=== PATIENT | male | born 1960 | race American Indian/Alaskan Native ===

== ENCOUNTER 2017-05-10 15:35 | Inpatient (IN) | payer MEDICARE ==
--- NOTE | 2017-05-10 17:21 | Emergency Department Report ---
ED General Adult HPI - General Chief complaint: Altered Mental Status Stated complaint: ALTERED MENTAL STATUS Time Seen by Provider: 05/10/17 17:17 Source: patient, family, EMS (ems notes not available at time of chart dictation), RN notes reviewed, old records reviewed Mode of arrival: Stretcher Limitations: Altered Mental Status, Physical Limitation - History of Present Illness Initial comments: This is a 57-year-old male who was previously unknown to this provider. History limited as the patient is currently nonverbal, will follow some commands , but not all commands, and cannot therefore describe exacerbating or relieving factors or qualitative nature of symptoms. Patient is brought to the hospital by EMS for altered mental status. 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 Patient is nonverbal, and will follow commands, but does not respond to yes no questions, and cannot answer open-ended questions. History is otherwise limited. -: unknown Consistency: constant Improves with: none Worsens with: none Associated Symptoms: confusion - Related Data Home Medications Medication Instructions Recorded Confirmed Last Taken oxyCODONE /ACETAMINOPHEN [Percocet 1 tab PO PRN PRN 10/20/13 09/24/14 09/23/14 5/325 mg] Acyclovir 1 tab PO BID 10/23/13 09/24/14 09/23/14 Emtricitabine [Emtriva] 1 cap PO 2XW 10/23/13 09/19/14 10/22/13 21:00 Gabapentin 1 tab PO DAILY 10/23/13 09/24/14 09/23/14 09:00 Ondansetron HCl [Zofran] 1 tab PO Q8HR PRN 10/23/13 09/19/14 10/17/13 09:00 Raltegravir Potassium [Isentress] 1 tab PO BID 10/23/13 09/24/14 10/22/13 21:00 Sennosides [Senna Lax] 2 tab PO BID PRN 10/23/13 09/19/14 10/19/13 21:00 Sertraline [Zoloft] 1 tab PO BID 10/23/13 09/19/14 10/22/13 21:00 Tenofovir [Viread] 1 tab PO DAILY 10/23/13 09/19/14 10/22/13 09:00 Previous Rx's Medication Instructions Recorded Last Taken Type Docusate Sodium [Colace CAP] 100 mg PO BID PRN #30 capsule 09/24/14 Unknown Rx oxyCODONE /ACETAMINOPHEN [Percocet 1 tab PO Q4HR PRN #30 tab 09/24/14 Unknown Rx 5/325 mg] Dextran 70/Hypromellose [Tears 15 ml OP QID #1 bottle 10/30/14 Unknown Rx Pure Drops] predniSONE [Deltasone] 20 mg PO QDAY #5 tab 10/30/14 Unknown Rx Allergies Allergy/AdvReac Type Severity Reaction Status Date / Time sulfamethoxazole Allergy Rash Verified 09/28/14 09:02 [From Bactrim] trimethoprim [From Bactrim] Allergy Rash Verified 09/28/14 09:02 ED Review of Systems ROS: Stated complaint: ALTERED MENTAL STATUS Other details as noted in HPI Comment: Unobtainable due to pts medical conditions ED Past Medical Hx - Past Medical History Hx Diabetes: Yes (FOR 2 YEARS ) Hx Deep Vein Thrombosis: Yes (BLOOD CLOT IN PORT IN 2013) Hx GERD: Yes Hx Renal Disease: Yes (dialysis , , wed) Hx HIV: Yes (2 YEARS, DR [employer] [employer]) - Surgical History Additional Surgical History: port in chest. SHUNT LEFT ARM - Social History Smoking Status: Never Smoker Substance Use Type: None - Medications Home Medications: Home Medications Medication Instructions Recorded Confirmed Last Taken Type oxyCODONE /ACETAMINOPHEN [Percocet 1 tab PO PRN PRN 10/20/13 09/24/14 09/23/14 History 5/325 mg] Acyclovir 1 tab PO BID 10/23/13 09/24/14 09/23/14 History Emtricitabine [Emtriva] 1 cap PO 2XW 10/23/13 09/19/14 10/22/13 21:00 History Gabapentin 1 tab PO DAILY 10/23/13 09/24/14 09/23/14 09:00 History Ondansetron HCl [Zofran] 1 tab PO Q8HR PRN 10/23/13 09/19/14 10/17/13 09:00 History Raltegravir Potassium [Isentress] 1 tab PO BID 10/23/13 09/24/14 10/22/13 21:00 History Sennosides [Senna Lax] 2 tab PO BID PRN 10/23/13 09/19/14 10/19/13 21:00 History Sertraline [Zoloft] 1 tab PO BID 10/23/13 09/19/14 10/22/13 21:00 History Tenofovir [Viread] 1 tab PO DAILY 10/23/13 09/19/14 10/22/13 09:00 History Docusate Sodium [Colace CAP] 100 mg PO BID PRN #30 capsule 09/24/14 Unknown Rx oxyCODONE /ACETAMINOPHEN [Percocet 1 tab PO Q4HR PRN #30 tab 09/24/14 Unknown Rx 5/325 mg] Dextran 70/Hypromellose [Tears 15 ml OP QID #1 bottle 10/30/14 Unknown Rx Pure Drops] predniSONE [Deltasone] 20 mg PO QDAY #5 tab 10/30/14 Unknown Rx ED Physical Exam - General Limitations: Altered Mental Status General appearance: in no apparent distress - Head Head exam: Present: atraumatic, normocephalic - Eye Eye exam: Present: normal appearance, EOMI. Absent: nystagmus - ENT ENT exam: Present: normal exam, normal orophraynx, mucous membranes moist, normal external ear exam - Neck Neck exam: Present: normal inspection, full ROM. Absent: tenderness, meningismus - Respiratory Respiratory exam: Present: normal lung sounds bilaterally. Absent: respiratory distress - Cardiovascular Cardiovascular Exam: Present: regular rate, normal rhythm, normal heart sounds. Absent: bradycardia, tachycardia, irregular rhythm, systolic murmur, diastolic murmur, rubs, gallop - GI/Abdominal GI/Abdominal exam: Present: soft, normal bowel sounds. Absent: distended, tenderness, guarding, rebound, rigid, pulsatile mass - Rectal Rectal exam: Present: other (excoriation is noted around the rectum, tender lesions noted around the rectum, there is no fluctuance or crepitus. The compartments are soft.) - Extremities Exam Extremities exam: Present: normal inspection, full ROM, normal capillary refill , other (there is a left upper extremity AV fistula with no redness, pus or streaking. There is a right upper extremity PICC line, with no redness, pus, streaking.). Absent: pedal edema, joint swelling, calf tenderness - Back Exam Back exam: Present: normal inspection, full ROM. Absent: paraspinal tenderness , vertebral tenderness - Neurological Exam Neurological exam: Present: alert, other (there is no facial droop. The extraocular movements are intact. 5 out of 5 strength in 4 extremities. Unable to assess sensation, or mentation as the patient is nonverbal.) - Psychiatric Psychiatric exam: Present: anxious - Skin Skin exam: Present: warm, dry, intact, normal color. Absent: rash ED Course Vital Signs 05/10/17 05/10/17 05/10/17 15:40 15:45 15:48 Temperature 98.0 F Pulse Rate 90 101 H Respiratory 9 L 13 Rate Blood Pressure 132/69 135/66 O2 Sat by Pulse 75 L 96 100 Oximetry 05/10/17 05/10/17 05/10/17 16:00 16:15 16:30 Temperature Pulse Rate 93 H 89 85 Respiratory 9 L 9 L 14 Rate Blood Pressure 135/66 136/74 140/74 O2 Sat by Pulse 100 100 100 Oximetry 05/10/17 05/10/17 05/10/17 16:45 17:00 17:28 Temperature 98.0 F Pulse Rate 84 90 Respiratory 15 22 Rate Blood Pressure 140/71 144/76 O2 Sat by Pulse 100 100 99 Oximetry 05/10/17 05/10/17 05/10/17 17:45 18:39 18:55 Temperature Pulse Rate Respiratory 18 9 L Rate Blood Pressure 140/71 140/71 140/71 O2 Sat by Pulse 100 Oximetry 05/10/17 05/10/17 05/10/17 19:01 19:15 19:31 Temperature Pulse Rate 95 H 95 H Respiratory 14 12 15 Rate Blood Pressure 140/71 140/71 144/76 O2 Sat by Pulse 95 96 Oximetry 05/10/17 05/10/17 05/10/17 19:45 20:01 20:15 Temperature 98.7 F Pulse Rate 95 H 95 H 102 H Respiratory 20 20 18 Rate Blood Pressure 144/76 144/76 144/76 O2 Sat by Pulse 94 92 97 Oximetry 05/10/17 05/10/17 05/10/17 20:31 20:43 20:44 Temperature 97 F L Pulse Rate 92 H Respiratory 18 20 Rate Blood Pressure 144/76 O2 Sat by Pulse 96 Oximetry - Reevaluation(s) Reevaluation #1: 05/10/17 19:31 PICC line noted in the right upper extremity, no redness, pus or streaking Reevaluation #2: 05/10/17 19:38 The Hospital physician, Dr. Richmond, accepted the patient to the medical service Reevaluation #3: 05/10/17 22:11 CT scan of the brain and cervical spine negative for acute disease. Doxycycline ordered empirically. ED Medical Decision Making - Lab Data Result diagrams: 05/10/17 18:01 05/10/17 18:01 Vital Signs 05/10/17 05/10/17 05/10/17 15:40 15:45 15:48 Temperature 98.0 F Pulse Rate 90 101 H Respiratory 9 L 13 Rate Blood Pressure 132/69 135/66 O2 Sat by Pulse 75 L 96 100 Oximetry 05/10/17 05/10/17 05/10/17 16:00 16:15 16:30 Temperature Pulse Rate 93 H 89 85 Respiratory 9 L 9 L 14 Rate Blood Pressure 135/66 136/74 140/74 O2 Sat by Pulse 100 100 100 Oximetry 05/10/17 05/10/17 05/10/17 16:45 17:00 17:28 Temperature 98.0 F Pulse Rate 84 90 Respiratory 15 22 Rate Blood Pressure 140/71 144/76 O2 Sat by Pulse 100 100 99 Oximetry Lab Results 05/10/17 05/10/17 05/10/17 Range/Units 17:06 17:06 18:01 WBC (4.5-11.0) K/mm3 RBC (3.65-5.03) M/mm3 Hgb (11.8-15.2) gm/dl Hct (35.5-45.6) % MCV (84-94) fl MCH (28-32) pg MCHC (32-34) % RDW (13.2-15.2) % Plt Count (140-440) K/mm3 Sodium 140 (137-145) mmol/L Potassium 5.1 H (3.6-5.0) mmol/L Chloride 95.2 L (98-107) mmol/L Carbon Dioxide 24 (22-30) mmol/L Anion Gap 26 mmol/L BUN 49 H (9-20) mg/dL Creatinine 12.7 H (0.8-1.5) mg/dL Estimated GFR 5 ml/min BUN/Creatinine Ratio 4 % Glucose 109 H (75-100) mg/dL Lactic Acid (0.7-2.0) mmol/L Calcium 7.6 L (8.4-10.2) mg/dL Total Bilirubin 1.80 H (0.1-1.2) mg/dL AST 14 (5-40) units/L ALT 10 (7-56) units/L Alkaline Phosphatase 105 (35-129) units/L Ammonia (25-60) umol/L Total Creatine Kinase (55-170) units/L Total Protein 6.7 (6.3-8.2) g/dL Albumin 3.8 L (3.9-5) g/dL Albumin/Globulin Ratio 1.3 % Urine Color Yellow (Yellow) Urine Turbidity Clear (Clear) Urine pH 8.0 H (5.0-7.0) Ur Specific [facility] 1.009 (1.003-1.030) Urine Protein 30 mg/dl (Negative) mg/dL Urine Glucose (UA) 150 (Negative) mg/dL Urine Ketones Neg (Negative) mg/dL Urine Blood Sm (Negative) Urine Nitrite Neg (Negative) Urine Bilirubin Neg (Negative) Urine Urobilinogen < 2.0 (<2.0) mg/dL Ur Leukocyte Esterase Neg (Negative) Urine WBC (Auto) < 1.0 (0.0-6.0) /HPF Urine RBC (Auto) 6.0 (0.0-6.0) /HPF U Epithel Cells (Auto) < 1.0 (0-13.0) /HPF Urine Mucus Few /HPF Salicylates (2.8-20.0) mg/dL Urine Opiates Screen TNR Urine Methadone Screen TNR Acetaminophen (10.0-30.0) ug/mL Ur Barbiturates Screen TNR Ur Phencyclidine Scrn TNR Ur Amphetamines Screen TNR U Benzodiazepines Scrn TNR Urine Cocaine Screen TNR U Marijuana (THC) Screen TNR Drugs of Abuse Note TNR 05/10/17 05/10/17 05/10/17 Range/Units 18:01 18:01 18:01 WBC 2.0 L (4.5-11.0) K/mm3 RBC 3.21 L (3.65-5.03) M/mm3 Hgb 10.2 L (11.8-15.2) gm/dl Hct 31.1 L (35.5-45.6) % MCV 97 H (84-94) fl MCH 32 (28-32) pg MCHC 33 (32-34) % RDW 14.3 (13.2-15.2) % Plt Count 104 L (140-440) K/mm3 Sodium (137-145) mmol/L Potassium (3.6-5.0) mmol/L Chloride (98-107) mmol/L Carbon Dioxide (22-30) mmol/L Anion Gap mmol/L BUN (9-20) mg/dL Creatinine (0.8-1.5) mg/dL Estimated GFR ml/min BUN/Creatinine Ratio % Glucose (75-100) mg/dL Lactic Acid (0.7-2.0) mmol/L Calcium (8.4-10.2) mg/dL Total Bilirubin (0.1-1.2) mg/dL AST (5-40) units/L ALT (7-56) units/L Alkaline Phosphatase (35-129) units/L Ammonia 40.0 (25-60) umol/L Total Creatine Kinase (55-170) units/L Total Protein (6.3-8.2) g/dL Albumin (3.9-5) g/dL Albumin/Globulin Ratio % Urine Color (Yellow) Urine Turbidity (Clear) Urine pH (5.0-7.0) Ur Specific [facility] (1.003-1.030) Urine Protein (Negative) mg/dL Urine Glucose (UA) (Negative) mg/dL Urine Ketones (Negative) mg/dL Urine Blood (Negative) Urine Nitrite (Negative) Urine Bilirubin (Negative) Urine Urobilinogen (<2.0) mg/dL Ur Leukocyte Esterase (Negative) Urine WBC (Auto) (0.0-6.0) /HPF Urine RBC (Auto) (0.0-6.0) /HPF U Epithel Cells (Auto) (0-13.0) /HPF Urine Mucus /HPF Salicylates < 0.3 L (2.8-20.0) mg/dL Urine Opiates Screen Urine Methadone Screen Acetaminophen (10.0-30.0) ug/mL Ur Barbiturates Screen Ur Phencyclidine Scrn Ur Amphetamines Screen U Benzodiazepines Scrn Urine Cocaine Screen U Marijuana (THC) Screen Drugs of Abuse Note 05/10/17 05/10/17 05/10/17 Range/Units 18:01 18:01 18:01 WBC (4.5-11.0) K/mm3 RBC (3.65-5.03) M/mm3 Hgb (11.8-15.2) gm/dl Hct (35.5-45.6) % MCV (84-94) fl MCH (28-32) pg MCHC (32-34) % RDW (13.2-15.2) % Plt Count (140-440) K/mm3 Sodium (137-145) mmol/L Potassium (3.6-5.0) mmol/L Chloride (98-107) mmol/L Carbon Dioxide (22-30) mmol/L Anion Gap mmol/L BUN (9-20) mg/dL Creatinine (0.8-1.5) mg/dL Estimated GFR ml/min BUN/Creatinine Ratio % Glucose (75-100) mg/dL Lactic Acid 1.40 (0.7-2.0) mmol/L Calcium (8.4-10.2) mg/dL Total Bilirubin (0.1-1.2) mg/dL AST (5-40) units/L ALT (7-56) units/L Alkaline Phosphatase (35-129) units/L Ammonia (25-60) umol/L Total Creatine Kinase 373 H (55-170) units/L Total Protein (6.3-8.2) g/dL Albumin (3.9-5) g/dL Albumin/Globulin Ratio % Urine Color (Yellow) Urine Turbidity (Clear) Urine pH (5.0-7.0) Ur Specific [facility] (1.003-1.030) Urine Protein (Negative) mg/dL Urine Glucose (UA) (Negative) mg/dL Urine Ketones (Negative) mg/dL Urine Blood (Negative) Urine Nitrite (Negative) Urine Bilirubin (Negative) Urine Urobilinogen (<2.0) mg/dL Ur Leukocyte Esterase (Negative) Urine WBC (Auto) (0.0-6.0) /HPF Urine RBC (Auto) (0.0-6.0) /HPF U Epithel Cells (Auto) (0-13.0) /HPF Urine Mucus /HPF Salicylates (2.8-20.0) mg/dL Urine Opiates Screen Urine Methadone Screen Acetaminophen 15.0 (10.0-30.0) ug/mL Ur Barbiturates Screen Ur Phencyclidine Scrn Ur Amphetamines Screen U Benzodiazepines Scrn Urine Cocaine Screen U Marijuana (THC) Screen Drugs of Abuse Note - EKG Data -: EKG Interpreted by Me EKG shows normal: sinus rhythm - EKG Data 05/10/17 19:26 Normal sinus, 84 bpm, borderline left axis, poor R-wave progression, biphasic T waves in the lateral leads, abnormal EKG, not morphologically consistent with a elevation myocardial infarction - Radiology Data Radiology results: image reviewed interpreted by me: X-ray of the chest demonstrates cardiomegaly, pulmonary vascular congestion, left lower lobe atelectasis versus infiltrate, awaiting formal interpretation - Medical Decision Making Differential diagnosis, including but not limited to: Intracranial injury, cervical spine injury, stroke, transient ischemic attack, pneumonia, conversion disorder, azotemia Assessment and plan: 57-year-old male with altered mental status, uncertain duration of time, therefore not a TPA candidate, also not an endovascular candidate. Patient's mental status is improving in the ER, he is now speaking and following some commands, although cannot answer open-ended or close and a questions. contacted nephrology on-call, Dr. Candy Blackmon, she indicates that that is their private patient, he was last dialyzed on Wednesday. Nephrology will follow in consultation. X-ray of the chest appears unremarkable , laboratory studies were reviewed and demonstrate renal insufficiency which is known, noncontrast CT scan of the brain and cervical spine are pending. We have requested old medical records from [facility], at the time of presentation oh family or friends were available for consent, therefore in the interest of expediting safe patient care, and for continuity of care, this provider has administratively consented the patient for release of medical information. Critical care attestation.: If time is entered above; I have spent that time in minutes in the direct care of this critically ill patient, excluding procedure time. ED Disposition Clinical Impression: ESRD (end stage renal disease), Altered mental status Disposition: 09 OP ADMIT IP TO THIS HOSP Is pt being admited?: Yes Condition: Fair
[2017-05-10 17:42] LABS: Amphetamine Screen,Urine TNR; Benzodiazepines Screen,Urine TNR; Cannabinoid Screen,Urine TNR; Cocaine Screen,Urine TNR; Methadone Screen,Urine TNR; Opiate Screen,Urine TNR
[2017-05-10 17:45] LABS: Bilirubin,Urine NEG (Negative); Blood,Urine SM (Negative); Color,Urine Yellow (Yellow); Mucus,Urine FEW /HPF; Urobilinogen,Urine < 2.0 mg/dL (<2.0); WBC,Urine < 1.0 /HPF (0.0-6.0)
[2017-05-10 18:20] LABS: Hematocrit 31.1 % (35.5-45.6); Hemoglobin 10.2 gm/dl (11.8-15.2); Mean Corpuscular HGB Conc 33 % (32-34); Mean Corpuscular Hemoglobin 32 pg (28-32); Mean Corpuscular Volume 97 fl (84-94); Platelet Count 104 K/mm3 (140-440); Red Blood Count 3.21 M/mm3 (3.65-5.03); Red Cell Distribution Width 14.3 % (13.2-15.2)
[2017-05-10] MEDS ORDERED: ATIVAN ONE (18:34)
[2017-05-10 18:52] LABS: Albumin 3.8 g/dL (3.9-5)
[2017-05-10 19:04] LABS: Calcium 7.6 mg/dL (8.4-10.2)
[2017-05-10] MEDS ORDERED: ATIVAN IV ONE (19:33)
[2017-05-10 19:54] LABS: Anisocytosis 1+; Eosinophils % (Manual) 0 % (0.0-4.3); Hypochromasia 1+; Total Cells Counted 100
[2017-05-10 19:55] LABS: Ovalocytes Few; Platelet Estimate Consistent w Auto
--- NOTE | 2017-05-10 20:09 | XRay Report ---
FINAL REPORT PROCEDURE: XR CHEST 1V AP TECHNIQUE: Chest radiograph anteroposterior view. CPT 55530 HISTORY: ams COMPARISON: None FINDINGS: Right PICC line has its tip in the SVC. The trachea is midline. The heart is top-normal in size. There is mild central vascular congestion. Left basilar airspace disease is present with or without small pleural effusion. No acute osseous abnormality is seen. IMPRESSION: Right PICC line in place, tip in the SVC. Mild central vascular congestion. Small left basilar airspace disease subsegmental atelectasis and or infiltrate. Small left pleural fluid not excluded.
--- NOTE | 2017-05-10 20:16 | History and Physical Report ---
History of Present Illness Chief complaint: He is confused. History of present illness: 57 YO Male with HIV, ESED on HD(T,R,Sa), CaP, Pelvic Cancer currently undergoing radiation therapy, DM,DVT, GERD, HIV Disease presents to ED for evaluation. Pt is confused and lethargic and unable to provide detailed history. Pt history taken from medical record, and ED staff, as well as family members who are at bedside during exam and interview. As per family the patient has experienced increasing confusion over the past week. Pt is currently unable to conduct activities of daily living. No reports of fever, chills, CP, Palpitations, NVD, trauma, falls, or recent ill contacts. EMS notified, and upon arrival the patient was found to be encephalopathic. Pt transported to [facility] for evaluation. Pt seen and evaluated in ED and found to have Encephalopathy, complicated by ESRD needing dialysis. Pt admitted to medical floor. Nephrology consulted in ED. Past History Past Medical History: diabetes, DVT, ESRD, GERD, HIV/AIDS Past Surgical History: Other (AVF, Chest Port) Social history: single. denies: smoking, alcohol abuse, prescription drug abuse Family history: hypertension Medications and Allergies Allergies Allergy/AdvReac Type Severity Reaction Status Date / Time sulfamethoxazole Allergy Rash Verified 09/28/14 09:02 [From Bactrim] trimethoprim [From Bactrim] Allergy Rash Verified 09/28/14 09:02 Home Medications Medication Instructions Recorded Confirmed Last Taken Type oxyCODONE /ACETAMINOPHEN [Percocet 1 tab PO PRN PRN 10/20/13 09/24/14 09/23/14 History 5/325 mg] Acyclovir 1 tab PO BID 10/23/13 09/24/14 09/23/14 History Emtricitabine [Emtriva] 1 cap PO 2XW 10/23/13 09/19/14 10/22/13 21:00 History Gabapentin 1 tab PO DAILY 10/23/13 09/24/14 09/23/14 09:00 History Ondansetron HCl [Zofran] 1 tab PO Q8HR PRN 10/23/13 09/19/14 10/17/13 09:00 History Raltegravir Potassium [Isentress] 1 tab PO BID 10/23/13 09/24/14 10/22/13 21:00 History Sennosides [Senna Lax] 2 tab PO BID PRN 10/23/13 09/19/14 10/19/13 21:00 History Sertraline [Zoloft] 1 tab PO BID 10/23/13 09/19/14 10/22/13 21:00 History Tenofovir [Viread] 1 tab PO DAILY 10/23/13 09/19/14 10/22/13 09:00 History Docusate Sodium [Colace CAP] 100 mg PO BID PRN #30 capsule 09/24/14 Unknown Rx oxyCODONE /ACETAMINOPHEN [Percocet 1 tab PO Q4HR PRN #30 tab 09/24/14 Unknown Rx 5/325 mg] Dextran 70/Hypromellose [Tears 15 ml OP QID #1 bottle 10/30/14 Unknown Rx Pure Drops] predniSONE [Deltasone] 20 mg PO QDAY #5 tab 10/30/14 Unknown Rx Review of Systems ROS unobtainable: due to mental status Exam - Constitutional Vitals: Temp Pulse Resp BP Pulse Ox 98.7 F 95 H 15 144/76 96 05/10/17 19:45 05/10/17 19:31 05/10/17 19:31 05/10/17 19:31 05/10/17 19:31 General appearance: Present: mild distress, obese - EENT Eyes: Present: PERRL ENT: hearing intact, clear oral mucosa - Neck Neck: Present: supple, normal ROM - Respiratory Respiratory: bilateral: diminished, rhonchi - Cardiovascular Heart Sounds: Present: S1 & S2. Absent: rub, click - Extremities Extremities: pulses symmetrical, No edema Peripheral Pulses: within normal limits - Abdominal General gastrointestinal: Present: soft, non-tender, non-distended, normal bowel sounds Male genitourinary: Present: normal - Integumentary Integumentary: Present: clear, warm, dry - Musculoskeletal Musculoskeletal: generalized weakness - Psychiatric Psychiatric: no intact judgment & insight, no memory intact - Neurologic Neurologic: moves all extremities, no gait normal Results - Labs CBC & Chem 7: 05/10/17 18:01 05/10/17 18:01 Labs: Abnormal lab results 05/10/17 05/10/17 05/10/17 Range/Units 17:06 18:01 18:01 WBC (4.5-11.0) K/mm3 RBC (3.65-5.03) M/mm3 Hgb (11.8-15.2) gm/dl Hct (35.5-45.6) % MCV (84-94) fl Plt Count (140-440) K/mm3 Basophils % (Manual) (0.0-1.8) % Seg Neutrophils # Man (1.8-7.7) K/mm3 Lymphocytes # (Manual) (1.2-5.4) K/mm3 Potassium 5.1 H (3.6-5.0) mmol/L Chloride 95.2 L (98-107) mmol/L BUN 49 H (9-20) mg/dL Creatinine 12.7 H (0.8-1.5) mg/dL Glucose 109 H (75-100) mg/dL Calcium 7.6 L (8.4-10.2) mg/dL Total Bilirubin 1.80 H (0.1-1.2) mg/dL Total Creatine Kinase (55-170) units/L Albumin 3.8 L (3.9-5) g/dL Urine pH 8.0 H (5.0-7.0) Salicylates < 0.3 L (2.8-20.0) mg/dL 05/10/17 05/10/17 Range/Units 18:01 18:01 WBC 2.0 L (4.5-11.0) K/mm3 RBC 3.21 L (3.65-5.03) M/mm3 Hgb 10.2 L (11.8-15.2) gm/dl Hct 31.1 L (35.5-45.6) % MCV 97 H (84-94) fl Plt Count 104 L (140-440) K/mm3 Basophils % (Manual) 2.0 H (0.0-1.8) % Seg Neutrophils # Man 1.2 L (1.8-7.7) K/mm3 Lymphocytes # (Manual) 0.6 L (1.2-5.4) K/mm3 Potassium (3.6-5.0) mmol/L Chloride (98-107) mmol/L BUN (9-20) mg/dL Creatinine (0.8-1.5) mg/dL Glucose (75-100) mg/dL Calcium (8.4-10.2) mg/dL Total Bilirubin (0.1-1.2) mg/dL Total Creatine Kinase 373 H (55-170) units/L Albumin (3.9-5) g/dL Urine pH (5.0-7.0) Salicylates (2.8-20.0) mg/dL Assessment and Plan - Patient Problems (1) Encephalopathy Current Visit: Yes Status: Acute Plan to address problem: CT Head, Ammonia level, UDS, Neuro checks, urgent dialysis, (2) HIV (human immunodeficiency virus infection) Current Visit: Yes Status: Acute Plan to address problem: continue antiretroviral therapy, CT head, supportive care, (3) Diabetes Current Visit: Yes Status: Acute Plan to address problem: ADA diet, insulin, accu check (4) GERD (gastroesophageal reflux disease) Current Visit: Yes Status: Acute Qualifiers: Esophagitis presence: without esophagitis Qualified Code(s): K21.9 - Gastro -esophageal reflux disease without esophagitis Plan to address problem: PPI therapy, (5) ESRD (end stage renal disease) Current Visit: Yes Status: Acute Plan to address problem: Nephrology consulted for urgent dialysis, diuresis, (6) DVT prophylaxis Current Visit: Yes Status: Acute
[2017-05-10] MEDS ORDERED: DULCOLAX PR PRN (20:19)
[2017-05-10] MEDS ORDERED: MILK OF MAGNESIA PO PRN (20:19)
--- NOTE | 2017-05-10 20:40 | Cat Scan Report ---
FINAL REPORT PROCEDURE: CT HEAD WO CONTRAST TECHNIQUE: Computerized tomography of the head was performed without contrast material. HISTORY: AMS COMPARISON: No prior studies are available for comparison. FINDINGS: Cerebral sulci and ventricles are prominent consistent with cerebral atrophy appropriate for patient's age. An old lacunar infarct is noted in the right basal ganglia. Mild degree nonspecific bilateral periventricular white matter hypodensity is noted most likely representing chronic microangiopathy. An acute intra-axial or extra-axial hemorrhage is not identified. There is no mass effect. Atherosclerotic calcification is noted involving bilateral internal carotid and vertebral arteries. Visualized bilateral paranasal sinuses are clear. Mastoid air cells are clear. Bones are intact. IMPRESSION: Old lacunar infarct right basal ganglia No acute intracranial abnormality.
--- NOTE | 2017-05-10 20:54 | Cat Scan Report ---
FINAL REPORT PROCEDURE: CT CERVICAL SPINE WO CON TECHNIQUE: Computerized tomography of the cervical spine was performed from the skull base to T1 without contrast material. HISTORY: ams COMPARISON: No prior studies are available for comparison. FINDINGS: There is mild straightening of the cervical spine. Vertebral height is within normal limits. An acute fracture is not identified. C1-2: There is narrowing of the atlantoaxial joint space.. C2-3: No significant abnormality. C3-4: Mild degree stenosis of the bilateral neural foramina is noted secondary to uncovertebral degenerative changes.. C4-5: Mild degree broad-based disc osteophyte complex is noted resulting in mild degree spinal canal stenosis. There also moderate degree bilateral neural foraminal stenosis right more than left secondary to uncovertebral degenerative changes.. C5-6: Mild degree broad-based disc osteophyte complex is noted without significant spinal canal compromise. Moderate degree bilateral neural foraminal stenosis is noted secondary to uncovertebral and facet degenerative changes.. C6-7: No significant abnormality. C7-T1: No significant abnormality. Other: No additional findings. IMPRESSION: Straightening of the cervical spine is most likely secondary to spasm or positioning. Multilevel cervical spondylosis as described above..
[2017-05-10] MEDS ORDERED: DOXYCYCLINE HYCLATE 100 MG in NACL 0.9% 250ML 250 ML IV ONE (22:30)
[2017-05-11] MEDS ORDERED: CATHFLO IV ONE (10:01)
--- NOTE | 2017-05-11 10:15 | Progress Note ---
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 Puentes utility [employer], reports that his level of consciousness is worse than before Will get MRI and consult neurology Patient is confused, agitated, noncommunicative, sometimes responds inappropriately to questions Needing minimal restraints for safety Unable to give history Alert and awake confused and agitated Vital signs reviewed Hospitalist Physical - Constitutional Vitals: Temp Pulse Resp BP Pulse Ox 98.3 F 81 23 131/69 99 05/10/17 23:44 05/10/17 23:44 05/11/17 01:20 05/10/17 23:44 05/10/17 23:44 General appearance: Present: mild distress, obese, other (agitated) - EENT Eyes: Present: PERRL, EOM intact - Neck Neck: Present: supple, normal ROM - Respiratory Respiratory effort: normal Respiratory: bilateral: diminished, negative: rales, rhonchi, wheezing - Cardiovascular Rhythm: regular Heart Sounds: Present: S1 & S2 - Extremities Extremities: no ischemia, No edema - Abdominal General gastrointestinal: soft, non-tender, non-distended, normal bowel sounds - Integumentary Integumentary: Present: clear, warm - Psychiatric Psychiatric: agitated, other (non communicative) - Neurologic Neurologic: moves all extremities (noncommunicative) Results - Labs CBC & Chem 7: 05/10/17 18:01 05/10/17 18:01 Labs: Laboratory Last Values WBC 2.0 K/mm3 (4.5-11.0) L 05/10/17 18: RBC 3.21 M/mm3 (3.65-5.03) L 05/10/17 18:01 Hgb 10.2 gm/dl (11.8-15.2) L 05/10/17 18: Hct 31.1 % (35.5-45.6) L 05/10/17 18: MCV 97 fl (84-94) H 05/10/17 18: MCH 32 pg (28-32) 05/10/17 18: MCHC 33 % (32-34) 05/10/17 18: RDW 14.3 % (13.2-15.2) 05/10/17 18: Plt Count 104 K/mm3 (140-440) L 05/10/17 18: Add Manual Diff Complete 05/10/17: Total Counted 100 05/10/17: Seg Neuts % (Manual) 61.0 % (40.0-70.0) 05/10/17 18: Band Neutrophils % 2.0 % 05/10/17 18:01 Lymphocytes % (Manual) 29.0 % (13.4-35.0) 05/10/17 18: Reactive Lymphs % (Man) 0 % 05/10/17 18: Monocytes % (Manual) 6.0 % (0.0-7.3) 05/10/17 18:01 Eosinophils % (Manual) 0 % (0.0-4.3) 05/10/17 18: Basophils % (Manual) 2.0 % (0.0-1.8) H 05/10/17 18: Metamyelocytes % 0 % 05/10/17 18: Myelocytes % 0 % 05/10/17 18:01 Promyelocytes % 0 % 05/10/17 18:01 Blast Cells % 0 % 05/10/17 18: Nucleated RBC % Not Reportable 05/10/17 18: Seg Neutrophils # Man 1.2 K/mm3 (1.8-7.7) L 05/10/17 18: Band Neutrophils # 0.0 K/mm3 05/10/17 18:01 Lymphocytes # (Manual) 0.6 K/mm3 (1.2-5.4) L 05/10/17 18:01 Abs React Lymphs (Man) 0.0 K/mm3 05/10/17 18:01 Monocytes # (Manual) 0.1 K/mm3 (0.0-0.8) 05/10/17 18:01 Eosinophils # (Manual) 0.0 K/mm3 (0.0-0.4) 05/10/17 18:01 Basophils # (Manual) 0.0 K/mm3 (0.0-0.1) 05/10/17 18:01 Metamyelocytes # 0.0 K/mm3 05/10/17 18:01 Myelocytes # 0.0 K/mm3 05/10/17 18:01 Promyelocytes # 0.0 K/mm3 05/10/17 18:01 Blast Cells # 0.0 K/mm3 05/10/17 18:01 WBC Morphology Not Reportable 05/10/17 18:01 Hypersegmented Neuts Not Reportable 05/10/17 18:01 Hyposegmented Neuts Not Reportable 05/10/17 18:01 Hypogranular Neuts Not Reportable 05/10/17 18:01 Smudge Cells Not Reportable 05/10/17 18:01 Toxic Granulation Not Reportable 05/10/17 18:01 Toxic Vacuolation Not Reportable 05/10/17 18:01 Dohle Bodies Not Reportable 05/10/17 18:01 Pelger-Huet Anomaly Not Reportable 05/10/17 18:01 Christopher Rods Not Reportable 05/10/17 18:01 Platelet Estimate Consistent w auto 05/10/17 18:01 Clumped Platelets Not Reportable 05/10/17 18:01 Plt Clumps, EDTA Not Reportable 05/10/17 18:01 Large Platelets Not Reportable 05/10/17 18:01 Giant Platelets Not Reportable 05/10/17 18:01 Platelet Satelliting Not Reportable 05/10/17 18:01 Plt Morphology Comment Not Reportable 05/10/17 18:01 RBC Morphology Not Reportable 05/10/17 18:01 Dimorphic RBCs Not Reportable 05/10/17 18:01 Polychromasia Not Reportable 05/10/17 18:01 Hypochromasia 1+ 05/10/17 18:01 Poikilocytosis Not Reportable 05/10/17 18:01 Anisocytosis 1+ 05/10/17 18:01 Microcytosis Not Reportable 05/10/17 18:01 Macrocytosis Not Reportable 05/10/17 18:01 Spherocytes Not Reportable 05/10/17 18:01 Pappenheimer Bodies Not Reportable 05/10/17 18:01 Sickle Cells Not Reportable 05/10/17 18:01 Target Cells Not Reportable 05/10/17 18:01 Tear Drop Cells Not Reportable 05/10/17 18:01 Ovalocytes Few 05/10/17 18:01 Helmet Cells Not Reportable 05/10/17 18:01 [place] Bodies Not Reportable 05/10/17 18:01 [place] Rings Not Reportable 05/10/17 18:01 [place] Cells Not Reportable 05/10/17 18:01 Bite Cells Not Reportable 05/10/17 18:01 Crenated Cell Not Reportable 05/10/17 18:01 Elliptocytes Not Reportable 05/10/17 18:01 Acanthocytes (Spur) Not Reportable 05/10/17 18:01 Rouleaux Not Reportable 05/10/17 18:01 Hemoglobin C Crystals Not Reportable 05/10/17 18:01 Schistocytes Not Reportable 05/10/17 18:01 Malaria parasites Not Reportable 05/10/17 18:01 Joe Bodies Not Reportable 05/10/17 18:01 Hem Pathologist Commnt No 05/10/17 18:01 Sodium 140 mmol/L (137-145) 05/10/17 18:01 Potassium 5.1 mmol/L (3.6-5.0) H 05/10/17 18:01 Chloride 95.2 mmol/L (98-107) L 05/10/17 18:01 Carbon Dioxide 24 mmol/L (22-30) 05/10/17 18:01 Anion Gap 26 mmol/L 05/10/17 18:01 BUN 49 mg/dL (9-20) H 05/10/17 18:01 Creatinine 12.7 mg/dL (0.8-1.5) H 05/10/17 18:01 Estimated GFR 5 ml/min 05/10/17 18:01 BUN/Creatinine Ratio 4 % 05/10/17 18:01 Glucose 109 mg/dL (75-100) H 05/10/17 18:01 Lactic Acid 1.40 mmol/L (0.7-2.0) 05/10/17 18:01 Calcium 7.6 mg/dL (8.4-10.2) L 05/10/17 18:01 Total Bilirubin 1.80 mg/dL (0.1-1.2) H 05/10/17 18:01 AST 14 units/L (5-40) 05/10/17 18:01 ALT 10 units/L (7-56) 05/10/17 18:01 Alkaline Phosphatase 105 units/L (35-129) 05/10/17 18:01 Ammonia 40.0 umol/L (25-60) 05/10/17 18:01 Total Creatine Kinase 373 units/L (55-170) H 05/10/17 18:01 Total Protein 6.7 g/dL (6.3-8.2) 05/10/17 18:01 Albumin 3.8 g/dL (3.9-5) L 05/10/17 18:01 Albumin/Globulin Ratio 1.3 % 05/10/17 18:01 Urine Color Yellow (Yellow) 05/10/17 17:06 Urine Turbidity Clear (Clear) 05/10/17 17:06 Urine pH 8.0 (5.0-7.0) H 05/10/17 17:06 Ur Specific [place] 1.009 (1.003-1.030) 05/10/17 17:06 Urine Protein 30 mg/dl mg/dL (Negative) 05/10/17 17:06 Urine Glucose (UA) 150 mg/dL (Negative) 05/10/17 17:06 Urine Ketones Neg mg/dL (Negative) 05/10/17 17:06 Urine Blood Sm (Negative) 05/10/17 17:06 Urine Nitrite Neg (Negative) 05/10/17 17:06 Urine Bilirubin Neg (Negative) 05/10/17 17:06 Urine Urobilinogen < 2.0 mg/dL (<2.0) 05/10/17 17:06 Ur Leukocyte Esterase Neg (Negative) 05/10/17 17:06 Urine WBC (Auto) < 1.0 /HPF (0.0-6.0) 05/10/17 17:06 Urine RBC (Auto) 6.0 /HPF (0.0-6.0) 05/10/17 17:06 U Epithel Cells (Auto) < 1.0 /HPF (0-13.0) 05/10/17 17:06 Urine Mucus Few /HPF 05/10/17 17:06 Salicylates < 0.3 mg/dL (2.8-20.0) L 05/10/17 18:01 Urine Opiates Screen TNR 05/10/17 17:06 Urine Methadone Screen TNR 05/10/17 17:06 Acetaminophen 15.0 ug/mL (10.0-30.0) 05/10/17 18:01 Ur Barbiturates Screen TNR 05/10/17 17:06 Ur Phencyclidine Scrn TNR 05/10/17 17:06 Ur Amphetamines Screen TNR 05/10/17 17:06 U Benzodiazepines Scrn TNR 05/10/17 17:06 Urine Cocaine Screen TNR 05/10/17 17:06 U Marijuana (THC) Screen TNR 05/10/17 17:06 Drugs of Abuse Note TNR 05/10/17 17:06
[2017-05-11] MEDS ORDERED: WATER FOR INJ (PF) IV ONE (11:33)
--- NOTE | 2017-05-11 12:11 | History and Physical Report ---
History of Present Illness Date of examination: 05/11/17 Date of admission: 05/10/17 20:19 Chief complaint: FOCUSED NEUROLOGY CONSULT NOTE: CC: Progressive alteration of mental state over one week. HPI: Hx reviewed from chart as patient cannot render hx at this time. He has ESRD on HD (Tue, R, Sat), HIV on retroviral Rx, prostate CA with CA in pelvis undergoing radio Rx for this at present, DM2, hx DVT, GERD. Over the past week at home he has become progressively confused and is now obtunded. He was admitted yesterday, present BUN 49, Creat 12.7, CT head (images reviewed ) show a remote Right BG lacune and SVID, CT neck DJD with not fx, Ca++ 7.6 with alb only sl low at 3,8, WBC 2.0, Hb 10.2. No hx sz. No hx blunt head trauma. ROS: not possible at this time due to patients status MEDS/ALLERGIES: See chart SH/FH not re-reviewed NEURO EXAM: MS: pt is very lethargic and difficult to arouse. He volunteered no words, did repeat the word "one" on command, could not say "one, two , three". Did show me two fingers with right hand on command and with left hand, could not show me a thumb on either side. Answered no questions. CN: eyes closed 99% of the time, full EOM without nystangmus, pupils both 4mm and react to bright light, no coop with other commands re CN testing MOT: could provide near full and symmetric strength in both UE on command with much exhortation, could barely lift both legs off the bed, no coop with dorsiflexion testing of the feet. CEREB: no coop DTRs: uniformly absent bilat, great toes unresponsive to plantar stim GAIT: cannot be tested. DX IMP: 1. Obtundation of multifactorial mechanism. The most obvious factor is his renal failure (BUN 49, creat 12.7), low Ca++ 7.6 (not explained by minimally low alb 3.8). HIV TRANSPORTATION AIDE infection possible. 2. Multiple med dxs as above RECC: 1. Agree re MRI brain as next step 2. Agree re urgent need for HD 3. Go from there. Jess Figueroa MD Past History Past Medical History: diabetes, DVT, ESRD, GERD, HIV/AIDS Past Surgical History: Other (AVF, Chest Port) Social history: single. denies: smoking, alcohol abuse, prescription drug abuse Family history: hypertension Medications and Allergies Allergies Allergy/AdvReac Type Severity Reaction Status Date / Time sulfamethoxazole Allergy Rash Verified 09/28/14 09:02 [From Bactrim] trimethoprim [From Bactrim] Allergy Rash Verified 09/28/14 09:02 Home Medications Medication Instructions Recorded Confirmed Last Taken Type oxyCODONE /ACETAMINOPHEN [Percocet 1 tab PO PRN PRN 10/20/13 09/24/14 09/23/14 History 5/325 mg] Acyclovir 1 tab PO BID 10/23/13 09/24/14 09/23/14 History Emtricitabine [Emtriva] 1 cap PO 2XW 10/23/13 09/19/14 10/22/13 21:00 History Gabapentin 1 tab PO DAILY 10/23/13 09/24/14 09/23/14 09:00 History Ondansetron HCl [Zofran] 1 tab PO Q8HR PRN 10/23/13 09/19/14 10/17/13 09:00 History Raltegravir Potassium [Isentress] 1 tab PO BID 10/23/13 09/24/14 10/22/13 21:00 History Sennosides [Senna Lax] 2 tab PO BID PRN 10/23/13 09/19/14 10/19/13 21:00 History Sertraline [Zoloft] 1 tab PO BID 10/23/13 09/19/14 10/22/13 21:00 History Tenofovir [Viread] 1 tab PO DAILY 10/23/13 09/19/14 10/22/13 09:00 History Docusate Sodium [Colace CAP] 100 mg PO BID PRN #30 capsule 09/24/14 Unknown Rx oxyCODONE /ACETAMINOPHEN [Percocet 1 tab PO Q4HR PRN #30 tab 09/24/14 Unknown Rx 5/325 mg] Dextran 70/Hypromellose [Tears 15 ml OP QID #1 bottle 10/30/14 Unknown Rx Pure Drops] predniSONE [Deltasone] 20 mg PO QDAY #5 tab 10/30/14 Unknown Rx Active Meds: Active Medications Acetaminophen (Tylenol) 650 mg PO Q4H PRN PRN Reason: Pain MILD(1-3)/Fever >100.5/ORTEGA Albuterol (Proventil) 2.5 mg IH Q4HRT PRN PRN Reason: Shortness Of Breath Bisacodyl (Dulcolax) 10 mg OR QDAY PRN PRN Reason: Constipation unrelieved by MOM Magnesium Hydroxide (Milk Of Magnesia) 30 ml PO Q4H PRN PRN Reason: Constipation Ondansetron HCl (Zofran) 4 mg IV Q8H PRN PRN Reason: N/V unrelieved by Reglan Physical Examination - Vital Signs Vital Signs: Vital Signs Pulse Ox 75 L 05/10/17 15:40 Results - Laboratory Findings CBC and BMP: 05/10/17 18:01 05/10/17 18:01 Abnormal Lab Findings: Abnormal Labs 05/10/17 05/10/17 05/10/17 17:06 18:01 18:01 WBC RBC Hgb Hct MCV Plt Count Basophils % (Manual) Seg Neutrophils # Man Lymphocytes # (Manual) Potassium 5.1 H Chloride 95.2 L BUN 49 H Creatinine 12.7 H Glucose 109 H Calcium 7.6 L Total Bilirubin 1.80 H Total Creatine Kinase Albumin 3.8 L Urine pH 8.0 H Salicylates < 0.3 L 05/10/17 05/10/17 18:01 18:01 WBC 2.0 L RBC 3.21 L Hgb 10.2 L Hct 31.1 L MCV 97 H Plt Count 104 L Basophils % (Manual) 2.0 H Seg Neutrophils # Man 1.2 L Lymphocytes # (Manual) 0.6 L Potassium Chloride BUN Creatinine Glucose Calcium Total Bilirubin Total Creatine Kinase 373 H Albumin Urine pH Salicylates
--- NOTE | 2017-05-11 12:37 | Consultation ---
History of Present Illness - History of Present Illness Source of information: History of presenting illness Patient is a 57-year-old -[place] male who is currently on maintenance hemodialysis on Nocturnal shift Wednesday, Wednesday, Wednesday, who has been admitted here with altered mental status off unclear etiology. [facility] on a Wednesday scheduleand recently has been noted to be compliant with the treatment as discussed with [employer] collection systems administrator patient has had a good clearance. Patient normally is alert, awake, oriented, follows commands and does come to dialysis treatment walking, driving, currently is in the process of getting a PICC line when I came to see him and does not answer questions well and appears to be confused and very disoriented Also discussed with hospital medicine about getting neurology evaluation as well as an MRI of the brain as this is definitely a significant change in his mental status Neuroimaging done here reveals evidence of vascular calcification In the outpatient setting. Patient does take gabapentin 1 tablet daily as well as oxycodone and Zoloft Past medical history is significant for End-stage renal disease, currently on maintenance hemodialysis Anemia and end-stage renal disease Secondary hyperparathyroidism HIV disease Diabetes mellitus type 2 History of dysphagia, reflux disorder Fistula creation Current allergies: Sulfa drugs Trimethoprim Social history: No history of any alcohol, drug or prescription drug abuse Family history: Positive for hypertension Home medication/present medications reviewed Review of systems is positive for altered mental status, increasing confusion, worsening over the last 1 week. Patient was unable to conduct activities of daily living, no recent history of any fevers, chills, cough, cold, congestion Physical examination Vitals: Reviewed HEENT: Oral mucosa mildly dry. No pharyngeal erythema, no icterus Neck: Supple, no JVD, thyromegaly, nodule or mass Chest: Clear to auscultation anteriorly. Very few faint basilar crackles Heart: Regular rate and rhythm, S1, S2 heard, no S3, S4 Abdomen: Soft, nontender, bowel sounds present. No suprapubic mass. No CVA tenderness. No renal bruit Extremities: No petechial rash, dry skin, 1+ edema, no peripheral cyanosis Neurological: arousable, very confused, disoriented Dermatology; no petechial skin rash, dry skin, poor skin hygiene Back: Nontender thoracolumbar spine Psychiatric: No agitation, aggression noted My assessment and plan are as follows End-stage renal disease: Patient is currently on maintenance hemodialysis on Wednesday, Wednesday, Wednesday, will need to be dialyzed today and possibly keep him on Wednesday schedule. As long as his neurological evaluation is done and an MRI has been reviewed. Rule out any possibility of silent brain ischemia? Metabolic causes,? Rule out other causes Discussed with [employer] collection systems administrator and according to her patient has been doing well calcium was 8.3 hb 11.1, k 4.2 ktv ,1.39 apr 28 labs Hypertension: To monitor and follow Secondary hyperparathyroidism. Check phosphorus and PTH level Altered mental status. Comprehensive workup needs to be done. Discussed with hospital medicine service about neurology evaluation as well as MRI of the brain Anemia and end-stage renal disease: To monitor and follow Diabetes mellitus type 2: Needs monitoring and close follow-up about glycemic controls Poorly compliant patient Continue with supportive care Check dialysis record from Center overall prognosis guarded We'll continue to follow and make recommendations from renal standpoint Patient was advised to make an appointment for follow-up in the office upon discharge. Past History Past Medical History: diabetes, DVT, ESRD, GERD, HIV/AIDS Past Surgical History: Other (AVF, Chest Port) Social history: single. denies: smoking, alcohol abuse, prescription drug abuse Family history: hypertension Medications and Allergies Allergies Allergy/AdvReac Type Severity Reaction Status Date / Time sulfamethoxazole Allergy Rash Verified 09/28/14 09:02 [From Bactrim] trimethoprim [From Bactrim] Allergy Rash Verified 09/28/14 09:02 Home Medications Medication Instructions Recorded Confirmed Last Taken Type oxyCODONE /ACETAMINOPHEN [Percocet 1 tab PO PRN PRN 10/20/13 05/12/17 05/08/17 History 5/325 mg] Acyclovir 1 tab PO BID 10/23/13 05/12/17 05/09/17 History Emtricitabine [Emtriva] 1 cap PO 2XW 10/23/13 05/12/17 05/07/17 History Gabapentin 1 tab PO DAILY 10/23/13 05/12/17 05/08/17 History Ondansetron HCl [Zofran] 1 tab PO Q8HR PRN 10/23/13 05/12/17 05/07/17 History Raltegravir Potassium [Isentress] 1 tab PO BID 10/23/13 05/12/17 05/09/17 History Sennosides [Senna Lax] 2 tab PO BID PRN 10/23/13 05/12/17 05/07/17 History Sertraline [Zoloft] 1 tab PO BID 10/23/13 05/12/17 05/08/17 History Tenofovir [Viread] 1 tab PO DAILY 10/23/13 05/12/17 05/09/17 History Docusate Sodium [Colace CAP] 100 mg PO BID PRN #30 capsule 09/24/14 05/12/17 Rx oxyCODONE /ACETAMINOPHEN [Percocet 1 tab PO Q4HR PRN #30 tab 09/24/14 05/12/17 05/08/17 Rx 5/325 mg] Dextran 70/Hypromellose [Tears 15 ml OP QID #1 bottle 10/30/14 05/12/17 Rx Pure Drops] predniSONE [Deltasone] 20 mg PO QDAY #5 tab 10/30/14 05/12/17 05/08/17 Rx Active Meds: Active Medications Acetaminophen (Tylenol) 650 mg PO Q4H PRN PRN Reason: Pain MILD(1-3)/Fever >100.5/ORTEGA Albuterol (Proventil) 2.5 mg IH Q4HRT PRN PRN Reason: Shortness Of Breath Bisacodyl (Dulcolax) 10 mg [place] QDAY PRN PRN Reason: Constipation unrelieved by MOM Magnesium Hydroxide (Milk Of Magnesia) 30 ml PO Q4H PRN PRN Reason: Constipation Ondansetron HCl (Zofran) 4 mg IV Q8H PRN PRN Reason: N/V unrelieved by Reglan Exam - Vital Signs Vital signs: Vital Signs Pulse Ox 75 L 05/10/17 15:40 Results - Lab Results 05/13/17 04:00 05/13/17 04:00 Most recent lab results Calcium 7.6 mg/dL (8.4-10.2) L 05/10/17 18:01
[2017-05-11] MEDS ORDERED: NACL 0.9% 100 ML IV PRN (12:45)
--- NOTE | 2017-05-11 14:11 | Magnetic Resonance Report ---
MRI OF THE BRAIN WITHOUT CONTRAST: HISTORY: Altered level of consciousness, HIV PROCEDURE: Multiplanar, multisequence MR imaging of the brain without IV contrast was performed. FINDINGS: Compared to the CT head dated 05/10/17. MRI demonstrates subtle cortical diffusion restriction in the bilateral posterior temporal lobes and bilateral occipital lobes. Diffusion restriction is also identified in the splenium of the corpus callosum and right superior cerebellar peduncle. There is decreased signal in these areas on the ADC map. This finding suggests an anoxic injury. Please correlate with the patient's clinical history. There is mild cortical volume loss and mild chronic white matter changes. No evidence for hemorrhage, mass, large chronic infarct or extra-axial fluid collection. Ventricular size is within normal limits. The basal cisterns are clear. Posterior fossa contents are unremarkable. Mild mucosal thickening is noted dual paranasal sinuses. The mastoid air cells are well aerated. IMPRESSION: Findings suggestive of anoxic injury. Please see above and correlate with the patient's clinical presentation.
[2017-05-11] MEDS ORDERED: HALDOL IM ONE (14:41)
[2017-05-11] MEDS ORDERED: ATIVAN IV ONE ×2 (15:45→21:30)
[2017-05-11] MEDS: ATIVAN IV PRN (18:56)
[2017-05-12] MEDS: ATIVAN IV PRN ×3 (03:01→19:49)
--- NOTE | 2017-05-12 08:33 | Progress Note ---
Subjective Date of service: 05/12/17 Principal diagnosis: AMS Interval history: NEURO FOLLOW UP NOTE MRI: (Images reviewed) shows DWI pos lesions in the parietal and temporal lobes , the splenium of the corpus callosum, and the right cerebellar brachium pontis which Dr Issac Carlson feels may represent evidence of anoxic injury. the findings are sparse, and we have no history of a cardiac arrest or other anoxic mechanism. No evidence of metastatic disease (eg from his prostate cancer metastesized to his pelvis.). DX IMP: 1. Abn MRI brain, as described above, which, if due to a microembolic shower ( from a proximal source, eg. the heart) , would NOT account for the patient's mental obtundation. While we have no hx of an anoxic event, the patient could have experienced such (eg one night this past week) which we would not necessarily know about. PLAN: 1. Will do stroke workup with MRA neck, Echo cardiogram 2. Persist with dialysis, correction of Ca++. While renal chems may improve in days, it will take more time for intracellular ion shifts to occur in the NURSE TECHNICIAN with tenriism of clinical function. 3. Discussed with Dr Sofia Figueroa MD Objective - Vital Sign Vital Signs - 12hr 05/11/17 05/11/17 05/11/17 20:30 20:45 21:00 Temperature Pulse Rate 113 H 99 H 109 H Respiratory Rate Blood Pressure 115/61 126/70 154/76 O2 Sat by Pulse Oximetry 05/11/17 05/11/17 05/11/17 21:15 21:30 21:45 Temperature Pulse Rate 96 H 93 H 90 Respiratory Rate Blood Pressure 127/73 118/63 99/51 O2 Sat by Pulse Oximetry 05/11/17 05/11/17 05/11/17 22:00 22:30 23:00 Temperature 98.2 F Pulse Rate 94 H 99 H Respiratory 18 20 Rate Blood Pressure 103/54 119/61 O2 Sat by Pulse Oximetry 05/11/17 05/12/17 23:23 03:37 Temperature 98.3 F 97.9 F Pulse Rate 97 H 86 Respiratory 16 20 Rate Blood Pressure 101/70 106/60 O2 Sat by Pulse 92 95 Oximetry - Laboratory Findings CBC and BMP: 05/10/17 18:01 05/10/17 18:01 Abnormal Lab Findings: Abnormal Labs 05/10/17 05/10/17 05/10/17 17:06 18:01 18:01 WBC RBC Hgb Hct MCV Plt Count Basophils % (Manual) Seg Neutrophils # Man Lymphocytes # (Manual) Potassium 5.1 H Chloride 95.2 L BUN 49 H Creatinine 12.7 H Glucose 109 H Calcium 7.6 L Total Bilirubin 1.80 H Total Creatine Kinase Albumin 3.8 L Urine pH 8.0 H Salicylates < 0.3 L 05/10/17 05/10/17 18:01 18:01 WBC 2.0 L RBC 3.21 L Hgb 10.2 L Hct 31.1 L MCV 97 H Plt Count 104 L Basophils % (Manual) 2.0 H Seg Neutrophils # Man 1.2 L Lymphocytes # (Manual) 0.6 L Potassium Chloride BUN Creatinine Glucose Calcium Total Bilirubin Total Creatine Kinase 373 H Albumin Urine pH Salicylates
--- NOTE | 2017-05-12 09:31 | Progress Note ---
Subjective Principal diagnosis: AMS Interval history: Patient was seen today for follow-up on multiple renal related issues Events of this hospitalization noted Tolerated HD ok Still confused and pulle dout needls towards end of treatment Vitals labs intake output medications were reviewed Social history: Reviewed Allergies: Reviewed Family history: Reviewed Physical examination HEENT: Oral mucosa moist no pallor or icterus Neck: Supple no JVD Chest: Clear to auscultation anteriorly CVS: Regular rate and rhythm S1 and S2 heard Abdomen: Soft nontender no suprapubic masses no organomegaly appreciable Extremity: Dry skin less than 1+ peripheral edema Musculoskeletal: No joint effusion noted in knees and ankle Neurological: Arousable confused Dermatology: No petechial rashes Psychiatry: No evidence of any agitation and aggression noted Assessment and plan End-stage renal disease; patient received hemodialysis treatment yesterday, will HD in am Altered mental status: Etiology unclear currently being followed by neurology agitation patient did receive Haldol as well as Ativan yesterday for dialysis Anemia in end-stage renal disease to monitor and follow Secondary hyperparathyroidism: Patient noted to have vascular calcification on the head CT History of chronic noncompliance currently doing better at the dialysis clinic from dialysis perspective labs are satisfactory discussed with clinical trials systems administrator sue yesterday Patient is currently on Wednesday hemodialysis and outpatient dialysis facility We'll continue to follow and make recommendation from renal standpoint Objective - Vital Signs Vital signs: Vital Signs - 12hr 05/11/17 05/11/17 05/11/17 21:30 21:45 22:00 Temperature Pulse Rate 93 H 90 94 H Respiratory Rate Blood Pressure 118/63 99/51 103/54 O2 Sat by Pulse Oximetry 05/11/17 05/11/17 05/11/17 22:30 23:00 23:23 Temperature 98.2 F 98.3 F Pulse Rate 99 H 97 H Respiratory 18 20 16 Rate Blood Pressure 119/61 101/70 O2 Sat by Pulse 92 Oximetry 05/12/17 05/12/17 03:37 07:35 Temperature 97.9 F 98.3 F Pulse Rate 86 88 Respiratory 20 22 Rate Blood Pressure 106/60 132/68 O2 Sat by Pulse 95 96 Oximetry - Lab 05/10/17 18:01 05/10/17 18:01 Most recent lab results Calcium 7.6 mg/dL (8.4-10.2) L 05/10/17 18:01
--- NOTE | 2017-05-12 13:22 | Progress Note ---
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; supportive care [place] psych evaluation needed --Obesity; advised weight reduction, diet modification --DVT prophylaxis; Lovenox Follow neurology ID evaluation and recommendations Follow MRI Restrain patient for safety as needed History Interval history: Patient seen and examined medical records reviewed No new events reported by the nursing staff Patient is more alert and awake responding to simple questions Neuro workup in progress Neurology's evaluating the patient Patient is slightly lethargic, restrained for safety Vital signs reviewed Hospitalist Physical - Constitutional Vitals: Temp Pulse Resp BP Pulse Ox 98.0 F 90 22 136/56 97 05/12/17 12:12 05/12/17 12:13 05/12/17 12:12 05/12/17 12:12 05/12/17 12:13 General appearance: Present: mild distress, obese, other (agitated) - EENT Eyes: Present: PERRL, EOM intact - Neck Neck: Present: supple, normal ROM - Respiratory Respiratory effort: normal Respiratory: bilateral: diminished, negative: rales, rhonchi, wheezing - Cardiovascular Rhythm: regular Heart Sounds: Present: S1 & S2 - Extremities Extremities: no ischemia, pulses intact - Abdominal General gastrointestinal: soft, non-tender, non-distended, normal bowel sounds - Integumentary Integumentary: Present: clear, warm - Psychiatric Psychiatric: agitated, other (confused) - Neurologic Neurologic: moves all extremities Results - Labs CBC & Chem 7: 05/10/17 18:01 05/10/17 18:01 Labs: Laboratory Last Values WBC 2.0 K/mm3 (4.5-11.0) L 05/10/17 18:01 RBC 3.21 M/mm3 (3.65-5.03) L 05/10/17 18:01 Hgb 10.2 gm/dl (11.8-15.2) L 05/10/17 18: Hct 31.1 % (35.5-45.6) L 05/10/17 18: MCV 97 fl (84-94) H 05/10/17 18:01 MCH 32 pg (28-32) 05/10/17 18:01 MCHC 33 % (32-34) 05/10/17 18:01 RDW 14.3 % (13.2-15.2) 05/10/17 18: Plt Count 104 K/mm3 (140-440) L 05/10/17 18: Add Manual Diff Complete 05/10/17 18: Total Counted 100 05/10/17 18: Seg Neuts % (Manual) 61.0 % (40.0-70.0) 05/10/17 18: Band Neutrophils % 2.0 % 05/10/17 18: Lymphocytes % (Manual) 29.0 % (13.4-35.0) 05/10/17 18:01 Reactive Lymphs % (Man) 0 % 05/10/17 18:01 Monocytes % (Manual) 6.0 % (0.0-7.3) 05/10/17 18:01 Eosinophils % (Manual) 0 % (0.0-4.3) 05/10/17 18:01 Basophils % (Manual) 2.0 % (0.0-1.8) H 05/10/17 18: Metamyelocytes % 0 % 05/10/17 18:01 Myelocytes % 0 % 05/10/17 18:01 Promyelocytes % 0 % 05/10/17 18:01 Blast Cells % 0 % 05/10/17 18:01 Nucleated RBC % Not Reportable 05/10/17 18: Seg Neutrophils # Man 1.2 K/mm3 (1.8-7.7) L 05/10/17 18:01 Band Neutrophils # 0.0 K/mm3 05/10/17 18:01 Lymphocytes # (Manual) 0.6 K/mm3 (1.2-5.4) L 05/10/17 18:01 Abs React Lymphs (Man) 0.0 K/mm3 05/10/17 18:01 Monocytes # (Manual) 0.1 K/mm3 (0.0-0.8) 05/10/17 18:01 Eosinophils # (Manual) 0.0 K/mm3 (0.0-0.4) 05/10/17 18:01 Basophils # (Manual) 0.0 K/mm3 (0.0-0.1) 05/10/17 18:01 Metamyelocytes # 0.0 K/mm3 05/10/17 18:01 Myelocytes # 0.0 K/mm3 05/10/17 18:01 Promyelocytes # 0.0 K/mm3 05/10/17 18:01 Blast Cells # 0.0 K/mm3 05/10/17 18:01 WBC Morphology Not Reportable 05/10/17 18:01 Hypersegmented Neuts Not Reportable 05/10/17 18:01 Hyposegmented Neuts Not Reportable 05/10/17 18:01 Hypogranular Neuts Not Reportable 05/10/17 18:01 Smudge Cells Not Reportable 05/10/17 18:01 Toxic Granulation Not Reportable 05/10/17 18:01 Toxic Vacuolation Not Reportable 05/10/17 18:01 Dohle Bodies Not Reportable 05/10/17 18:01 Pelger-Huet Anomaly Not Reportable 05/10/17 18:01 Christopher Rods Not Reportable 05/10/17 18:01 Platelet Estimate Consistent w auto 05/10/17 18:01 Clumped Platelets Not Reportable 05/10/17 18:01 Plt Clumps, EDTA Not Reportable 05/10/17 18:01 Large Platelets Not Reportable 05/10/17 18:01 Giant Platelets Not Reportable 05/10/17 18:01 Platelet Satelliting Not Reportable 05/10/17 18:01 Plt Morphology Comment Not Reportable 05/10/17 18:01 RBC Morphology Not Reportable 05/10/17 18:01 Dimorphic RBCs Not Reportable 05/10/17 18:01 Polychromasia Not Reportable 05/10/17 18:01 Hypochromasia 1+ 05/10/17 18:01 Poikilocytosis Not Reportable 05/10/17 18:01 Anisocytosis 1+ 05/10/17 18:01 Microcytosis Not Reportable 05/10/17 18:01 Macrocytosis Not Reportable 05/10/17 18:01 Spherocytes Not Reportable 05/10/17 18:01 Pappenheimer Bodies Not Reportable 05/10/17 18:01 Sickle Cells Not Reportable 05/10/17 18:01 Target Cells Not Reportable 05/10/17 18:01 Tear Drop Cells Not Reportable 05/10/17 18:01 Ovalocytes Few 05/10/17 18:01 Helmet Cells Not Reportable 05/10/17 18:01 [place] Bodies Not Reportable 05/10/17 18:01 [place] Rings Not Reportable 05/10/17 18:01 [place] Cells Not Reportable 05/10/17 18:01 Bite Cells Not Reportable 05/10/17 18:01 Crenated Cell Not Reportable 05/10/17 18:01 Elliptocytes Not Reportable 05/10/17 18:01 Acanthocytes (Spur) Not Reportable 05/10/17 18:01 Rouleaux Not Reportable 05/10/17 18:01 Hemoglobin C Crystals Not Reportable 05/10/17 18:01 Schistocytes Not Reportable 05/10/17 18:01 Malaria parasites Not Reportable 05/10/17 18:01 Joe Bodies Not Reportable 05/10/17 18:01 Hem Pathologist Commnt No 05/10/17 18:01 Sodium 140 mmol/L (137-145) 05/10/17 18:01 Potassium 5.1 mmol/L (3.6-5.0) H 05/10/17 18:01 Chloride 95.2 mmol/L (98-107) L 05/10/17 18:01 Carbon Dioxide 24 mmol/L (22-30) 05/10/17 18:01 Anion Gap 26 mmol/L 05/10/17 18:01 BUN 49 mg/dL (9-20) H 05/10/17 18:01 Creatinine 12.7 mg/dL (0.8-1.5) H 05/10/17 18:01 Estimated GFR 5 ml/min 05/10/17 18:01 BUN/Creatinine Ratio 4 % 05/10/17 18:01 Glucose 109 mg/dL (75-100) H 05/10/17 18:01 Lactic Acid 1.40 mmol/L (0.7-2.0) 05/10/17 18:01 Calcium 7.6 mg/dL (8.4-10.2) L 05/10/17 18:01 Total Bilirubin 1.80 mg/dL (0.1-1.2) H 05/10/17 18:01 AST 14 units/L (5-40) 05/10/17 18:01 ALT 10 units/L (7-56) 05/10/17 18:01 Alkaline Phosphatase 105 units/L (35-129) 05/10/17 18:01 Ammonia 40.0 umol/L (25-60) 05/10/17 18:01 Total Creatine Kinase 373 units/L (55-170) H 05/10/17 18:01 Total Protein 6.7 g/dL (6.3-8.2) 05/10/17 18:01 Albumin 3.8 g/dL (3.9-5) L 05/10/17 18:01 Albumin/Globulin Ratio 1.3 % 05/10/17 18:01 Urine Color Yellow (Yellow) 05/10/17 17:06 Urine Turbidity Clear (Clear) 05/10/17 17:06 Urine pH 8.0 (5.0-7.0) H 05/10/17 17:06 Ur Specific [place] 1.009 (1.003-1.030) 05/10/17 17:06 Urine Protein 30 mg/dl mg/dL (Negative) 05/10/17 17:06 Urine Glucose (UA) 150 mg/dL (Negative) 05/10/17 17:06 Urine Ketones Neg mg/dL (Negative) 05/10/17 17:06 Urine Blood Sm (Negative) 05/10/17 17:06 Urine Nitrite Neg (Negative) 05/10/17 17:06 Urine Bilirubin Neg (Negative) 05/10/17 17:06 Urine Urobilinogen < 2.0 mg/dL (<2.0) 05/10/17 17:06 Ur Leukocyte Esterase Neg (Negative) 05/10/17 17:06 Urine WBC (Auto) < 1.0 /HPF (0.0-6.0) 05/10/17 17:06 Urine RBC (Auto) 6.0 /HPF (0.0-6.0) 05/10/17 17:06 U Epithel Cells (Auto) < 1.0 /HPF (0-13.0) 05/10/17 17:06 Urine Mucus Few /HPF 05/10/17 17:06 Salicylates < 0.3 mg/dL (2.8-20.0) L 05/10/17 18:01 Urine Opiates Screen TNR 05/10/17 17:06 Urine Methadone Screen TNR 05/10/17 17:06 Acetaminophen 15.0 ug/mL (10.0-30.0) 05/10/17 18:01 Ur Barbiturates Screen TNR 05/10/17 17:06 Ur Phencyclidine Scrn TNR 05/10/17 17:06 Ur Amphetamines Screen TNR 05/10/17 17:06 U Benzodiazepines Scrn TNR 05/10/17 17:06 Urine Cocaine Screen TNR 05/10/17 17:06 U Marijuana (THC) Screen TNR 05/10/17 17:06 Drugs of Abuse Note TNR 05/10/17 17:06
[2017-05-12] MEDS ORDERED: ATIVAN IV ONE (20:48)
[2017-05-12] MEDS ORDERED: GEODON IM ONE (21:52)
[2017-05-13] MEDS: ATIVAN IV PRN ×3 (02:05→16:30)
[2017-05-13 05:10] LABS: Hematocrit 25.7 % (35.5-45.6); Hemoglobin 8.7 gm/dl (11.8-15.2); Mean Corpuscular HGB Conc 34 % (32-34); Mean Corpuscular Hemoglobin 32 pg (28-32); Mean Corpuscular Volume 95 fl (84-94); Red Blood Count 2.71 M/mm3 (3.65-5.03); Red Cell Distribution Width 14.1 % (13.2-15.2)
[2017-05-13 05:17] LABS: Platelet Count 89 K/mm3 (140-440)
[2017-05-13 05:33] LABS: Albumin 3.4 g/dL (3.9-5); Bilirubin,Direct 0.4 mg/dL (0-0.2)
[2017-05-13 06:57] LABS: Anisocytosis 1+; Band Neutrophils # (Manual) 0.1 K/mm3; Basophils % (Manual) 0 % (0.0-1.8); Eosinophils % (Manual) 0 % (0.0-4.3); Hypochromasia 1+; Ovalocytes 1+; Total Cells Counted 100
[2017-05-13 06:58] LABS: Platelet Estimate Consistent w Auto
--- NOTE | 2017-05-13 07:24 | Progress Note ---
Subjective Principal diagnosis: AMS Interval history: Patient was seen today for follow-up on multiple renal related issues events of 24 hours were noted patient still continues to be encephalopathic and able to open his eyes but does not follow any purposeful commands Still confused and pulled out needls towards end of treatment Vitals labs intake output medications were reviewed Social history: Reviewed Allergies: Reviewed Family history: Reviewed Physical examination HEENT: Oral mucosa moist no pallor or icterus Neck: Supple no JVD Chest: Clear to auscultation anteriorly CVS: Regular rate and rhythm S1 and S2 heard Abdomen: Soft nontender no suprapubic masses no organomegaly appreciable Extremity: Dry skin less than 1+ peripheral edema Musculoskeletal: No joint effusion noted in knees and ankle Neurological: Arousable confused Dermatology: No petechial rashes Psychiatry: has been encephalopathic and agitated at times Assessment and plan End-stage renal disease: Patient will need to be dialyzed on Wednesday scheduled for 4 hours, we'll continue with hemodialysis here Encephalopathy/agitation ; current being followed by neurology patient may require when necessary Haldol to control his agitation during dialysis treatment , last time towards end of treatment he pulled out the needle which is quite concerning Anemia and end-stage renal disease: To monitor and follow Secondary hyperparathyroidism: Monitor phosphorus and PTH level, Will keep him on 3 calcium bath HIV disease; patient will benefit from an infectious disease evaluation Pancytopenia-like picture which is concerning; likely will benefit from hematology evaluation please consider consultation Hypocalcemia: Mild currently better, we'll keep him on 3 calcium bath Hyperkalemia currently improved Metabolic acidosis should improve with hemodialysis Elevated bilirubin etiology unclear ammonia level normal at 40; suggest obtaining liver ultrasound History of prostate cancer we will order a PSA level We'll continue to follow and make recommendation from renal standpoint Objective - Vital Signs Vital signs: Vital Signs - 12hr 05/12/17 05/12/17 05/13/17 19:40 22:00 01:50 Temperature 98.4 F 98.8 F Pulse Rate 94 H 87 Respiratory 18 Rate Blood Pressure 156/66 O2 Sat by Pulse 97 96 Oximetry 05/13/17 03:59 Temperature 98.2 F Pulse Rate 118 H Respiratory 18 Rate Blood Pressure 141/66 O2 Sat by Pulse 96 Oximetry - Lab 05/13/17 04:00 05/13/17 04:00 Most recent lab results Calcium 8.0 mg/dL (8.4-10.2) L 05/13/17 04:00 Phosphorus 4.80 mg/dL (2.5-4.5) H 05/13/17 04:00 Magnesium 1.70 mg/dL (1.7-2.3) 05/13/17 04:00
[2017-05-13] MEDS ORDERED: GEODON IM ONE (10:00)
--- NOTE | 2017-05-13 12:05 | Progress Note ---
Subjective Date of service: 05/13/17 Principal diagnosis: AMS Interval history: NEUROLOLY FOLLOW UP NOTE: LABS REVIEWED: Now day 5 in hospital, creatinine has not changed, still 4.0 BUN no sig change. ON EXAM: There is no change neurolocially. Still very obtunded, no focal abnormality. IMP: 1. Obtundation of likely multifactorial mechanism, persistent. Factors include his renal failure, and likely unwitnessed nocturnal anoxic event ( cardiac arrythmia). The MRI brain is consistent with the latter. RECC: 1. Will get EEG. 2. Complete the stroke workup (only need MRA neck, and echo - both ordered) 3. Go from there. Jess Figueroa MD Objective - Vital Sign Vital Signs - 12hr 05/13/17 05/13/17 01:50 03:59 Temperature 98.8 F 98.2 F Pulse Rate 87 118 H Respiratory 18 Rate Blood Pressure 141/66 O2 Sat by Pulse 96 Oximetry - Laboratory Findings CBC and BMP: 05/13/17 04:00 05/13/17 04:00 Abnormal Lab Findings: Abnormal Labs 05/10/17 05/10/17 05/10/17 17:06 18:01 18:01 WBC RBC Hgb Hct MCV Plt Count Seg Neuts % (Manual) Lymphocytes % (Manual) Monocytes % (Manual) Basophils % (Manual) Seg Neutrophils # Man Lymphocytes # (Manual) Potassium 5.1 H Chloride 95.2 L Carbon Dioxide BUN 49 H Creatinine 12.7 H Glucose 109 H Calcium 7.6 L Phosphorus Total Bilirubin 1.80 H Direct Bilirubin Total Creatine Kinase Albumin 3.8 L Urine pH 8.0 H Salicylates < 0.3 L 05/10/17 05/10/17 05/13/17 18:01 18:01 04:00 WBC 2.0 L 3.5 L RBC 3.21 L 2.71 L Hgb 10.2 L 8.7 L Hct 31.1 L 25.7 L MCV 97 H 95 H Plt Count 104 L 89 L Seg Neuts % (Manual) 74.0 H Lymphocytes % (Manual) 13.0 L Monocytes % (Manual) 11.0 H Basophils % (Manual) 2.0 H Seg Neutrophils # Man 1.2 L Lymphocytes # (Manual) 0.6 L 0.5 L Potassium Chloride Carbon Dioxide BUN Creatinine Glucose Calcium Phosphorus Total Bilirubin Direct Bilirubin Total Creatine Kinase 373 H Albumin Urine pH Salicylates 05/13/17 04:00 WBC RBC Hgb Hct MCV Plt Count Seg Neuts % (Manual) Lymphocytes % (Manual) Monocytes % (Manual) Basophils % (Manual) Seg Neutrophils # Man Lymphocytes # (Manual) Potassium Chloride 92.0 L Carbon Dioxide 19 L BUN 46 H Creatinine 13.0 H Glucose 126 H Calcium 8.0 L Phosphorus 4.80 H Total Bilirubin 1.50 H Direct Bilirubin 0.4 H Total Creatine Kinase Albumin 3.4 L Urine pH Salicylates
--- NOTE | 2017-05-13 13:28 | Consultation ---
<ANAND RAMIREZ - Last Filed: 05/13/17 16:02> History of Present Illness - Reason for Consult Consult date: 05/13/17 HIV Requesting physician: MATT GUERRA - History of Present Illness 57 YO Male with HIV, ESRD on HD(T,R,Sa), CaP, Pelvic Cancer currently undergoing radiation therapy, DM,DVT, GERD, HIV Disease presents to ED for evaluation. Pt is confused and lethargic and unable to provide detailed history. Pt history taken from medical record, and ED staff, as well as family members who are at bedside during exam and interview when presented in the ED. As per family the patient has experienced increasing confusion over the past week. Pt is currently unable to conduct activities of daily living. As per ED assessment, no reports of fever, chills, CP, Palpitations, NVD, trauma, falls, or recent ill contacts. Pt seen and evaluated in ED and found to have Encephalopathy, complicated by ESRD needing dialysis. In the ER temperature was 98.0, pulse 101, respiratory rate 13, saturation 100% , blood pressure 135/66. White blood cell count was 2.0, Hgb 10.2. platelets 104. creatinine 12.2. LA 1.4. Chest x-ray showed mild central vascular congestion. small left babsilar airspace disease subsegmental atelectasis and or infiltrates. small left pleural fluid not excluded. CT head showed old lacunar right basal ganglia. No acute intracranial abscess. CT cervical spine showed straightening of the cervical spine. MRI of the brain showed anoxic injury. UA showed increased pH. ID service is seeing him today to help with further antimicrobial management. Microbiology: Blood cultures: 05/10 NGTD Stool culture 05/10 + occult blood Repiratory cultures: Urine cultures Current Antimicrobials: Previous Antimicrobials: Past History Past Medical History: diabetes, DVT, ESRD, GERD, HIV/AIDS Past Surgical History: Other (AVF, Chest Port) Social history: single. denies: smoking, alcohol abuse, prescription drug abuse Family history: hypertension Medications and Allergies Allergies Allergy/AdvReac Type Severity Reaction Status Date / Time sulfamethoxazole Allergy Rash Verified 09/28/14 09:02 [From Bactrim] trimethoprim [From Bactrim] Allergy Rash Verified 09/28/14 09:02 Home Medications Medication Instructions Recorded Confirmed Last Taken Type oxyCODONE /ACETAMINOPHEN [Percocet 1 tab PO PRN PRN 10/20/13 05/12/17 05/08/17 History 5/325 mg] Acyclovir 1 tab PO BID 10/23/13 05/12/17 05/09/17 History Emtricitabine [Emtriva] 1 cap PO 2XW 10/23/13 05/12/17 05/07/17 History Gabapentin 1 tab PO DAILY 10/23/13 05/12/17 05/08/17 History Ondansetron HCl [Zofran] 1 tab PO Q8HR PRN 10/23/13 05/12/17 05/07/17 History Raltegravir Potassium [Isentress] 1 tab PO BID 10/23/13 05/12/17 05/09/17 History Sennosides [Senna Lax] 2 tab PO BID PRN 10/23/13 05/12/17 05/07/17 History Sertraline [Zoloft] 1 tab PO BID 10/23/13 05/12/17 05/08/17 History Tenofovir [Viread] 1 tab PO DAILY 10/23/13 05/12/17 05/09/17 History Docusate Sodium [Colace CAP] 100 mg PO BID PRN #30 capsule 09/24/14 05/12/17 Rx oxyCODONE /ACETAMINOPHEN [Percocet 1 tab PO Q4HR PRN #30 tab 09/24/14 05/12/17 05/08/17 Rx 5/325 mg] Dextran 70/Hypromellose [Tears 15 ml OP QID #1 bottle 10/30/14 05/12/17 Rx Pure Drops] predniSONE [Deltasone] 20 mg PO QDAY #5 tab 10/30/14 05/12/17 05/08/17 Rx Active Meds: Active Medications Acetaminophen (Tylenol) 650 mg PO Q4H PRN PRN Reason: Pain MILD(1-3)/Fever >100.5/ORTEGA Albuterol (Proventil) 2.5 mg IH Q4HRT PRN PRN Reason: Shortness Of Breath Bisacodyl (Dulcolax) 10 mg MD QDAY PRN PRN Reason: Constipation unrelieved by MOM Sodium Chloride (Nacl 0.9%) 100 mls @ 999 mls/hr IV LEIDA PRN PRN Reason: Hypotension Lorazepam (Ativan) 1 mg IV Q6H PRN PRN Reason: Agitation Last Admin: 05/13/17 08:23 Dose: 1 mg Magnesium Hydroxide (Milk Of Magnesia) 30 ml PO Q4H PRN PRN Reason: Constipation Ondansetron HCl (Zofran) 4 mg IV Q8H PRN PRN Reason: N/V unrelieved by Reglan Ziprasidone (Geodon) 10 mg IM Q6H PRN PRN Reason: Agitation Stop: 05/14/17 15:59 Physical Examination - Physical Exam Narrative exam: General appearance: AMS Eyes: anicteric sclerae, moist conjunctivae; no lid-lag; PERRLA HENT: Atraumatic; oropharynx clear, no thrush Neck: Trachea midline; supple, no thyromegaly or lymphadenopathy; no thrush Lungs: diminished bilaterally CV: RRR, no murmurs Abdomen: Soft, non-tender; no masses or hepatosplenomegaly Extremities: RROM Skin: warm, intact, and dry Psych: calm and cooperative Neuro: alert and oriented Lines: PICC - Constitutional Vitals: Vital Signs Temp Pulse Resp BP Pulse Ox 98.2 F 118 H 18 141/66 96 05/13/17 03:59 05/13/17 03:59 05/13/17 03:59 05/13/17 03:59 05/13/17 03:59 Temperature -Last 24 Hours Temperature 98.2 F Temperature 98.8 F Temperature 98.4 F Temperature 98.8 F Results - Labs CBC & Chem 7: 05/13/17 04:00 05/13/17 04:00 Labs: Abnormal lab results 05/13/17 05/13/17 Range/Units 04:00 04:00 WBC 3.5 L (4.5-11.0) K/mm3 RBC 2.71 L (3.65-5.03) M/mm3 Hgb 8.7 L (11.8-15.2) gm/dl Hct 25.7 L (35.5-45.6) % MCV 95 H (84-94) fl Plt Count 89 L (140-440) K/mm3 Seg Neuts % (Manual) 74.0 H (40.0-70.0) % Lymphocytes % (Manual) 13.0 L (13.4-35.0) % Monocytes % (Manual) 11.0 H (0.0-7.3) % Lymphocytes # (Manual) 0.5 L (1.2-5.4) K/mm3 Chloride 92.0 L (98-107) mmol/L Carbon Dioxide 19 L (22-30) mmol/L BUN 46 H (9-20) mg/dL Creatinine 13.0 H (0.8-1.5) mg/dL Glucose 126 H (75-100) mg/dL Calcium 8.0 L (8.4-10.2) mg/dL Phosphorus 4.80 H (2.5-4.5) mg/dL Total Bilirubin 1.50 H (0.1-1.2) mg/dL Direct Bilirubin 0.4 H (0-0.2) mg/dL Albumin 3.4 L (3.9-5) g/dL Assessment and Plan Assessment: 1) SIRS; present on admission; manifested by tachycardia and leukopenia; unknown etiology 2) Encephalopathy; unknown ? AIDS related vs opportunistic infection vs medical 3) HIV/AIDS; Unknown CD4/VL. 4) ESRD on HD 5) Hypertension 6) Pancytopenia ? from AIDS vs opportunistic infection Plan: -Obtain CD4, HIV viral load -obtain lumbar punture for opening pressure and send CSF specimen for Gram stain and culture, glucose, protein, VDRL, HSV-PCR, cryptococcal antigen and culture -obtain HIV-genotype, CD4, HIV-viral load -Cryptococcal serum antigen and AFB blood cx Thank you Dr. Nguyen for your consultation, will follow up with you. Anand Ramirez NP for Dr. Allie Cordon MD Infectious Diseases Specialist [facility] M [phone] O [phone] <ALLIE NOVOA - Last Filed: 05/13/17 20:37> Medications and Allergies Active Meds: Active Medications Acetaminophen (Tylenol) 650 mg PO Q4H PRN PRN Reason: Pain MILD(1-3)/Fever >100.5/ORTEGA Albuterol (Proventil) 2.5 mg IH Q4HRT PRN PRN Reason: Shortness Of Breath Last Admin: 05/13/17 20:09 Dose: 2.5 mg Bisacodyl (Dulcolax) 10 mg MD QDAY PRN PRN Reason: Constipation unrelieved by MOM Sodium Chloride (Nacl 0.9%) 100 mls @ 999 mls/hr IV LEIDA PRN PRN Reason: Hypotension Lorazepam (Ativan) 1 mg IV Q6H PRN PRN Reason: Agitation Last Admin: 05/13/17 16:30 Dose: 1 mg Magnesium Hydroxide (Milk Of Magnesia) 30 ml PO Q4H PRN PRN Reason: Constipation Ondansetron HCl (Zofran) 4 mg IV Q8H PRN PRN Reason: N/V unrelieved by Reglan Ziprasidone (Geodon) 10 mg IM Q6H PRN PRN Reason: Agitation Stop: 05/14/17 15:59 Physical Examination - Constitutional Vitals: Vital Signs Temp Pulse Resp BP Pulse Ox 98.6 F 112 H 18 135/42 95 05/13/17 16:00 05/13/17 19:45 05/13/17 16:00 05/13/17 19:45 05/13/17 11:33 Temperature -Last 24 Hours Temperature 98.6 F Temperature 98.6 F Temperature 99.1 F Temperature 98.2 F Temperature 98.8 F Results - Labs CBC & Chem 7: 05/13/17 04:00 05/13/17 04:00 Labs: Abnormal lab results 05/13/17 05/13/17 Range/Units 04:00 04:00 WBC 3.5 L (4.5-11.0) K/mm3 RBC 2.71 L (3.65-5.03) M/mm3 Hgb 8.7 L (11.8-15.2) gm/dl Hct 25.7 L (35.5-45.6) % MCV 95 H (84-94) fl Plt Count 89 L (140-440) K/mm3 Seg Neuts % (Manual) 74.0 H (40.0-70.0) % Lymphocytes % (Manual) 13.0 L (13.4-35.0) % Monocytes % (Manual) 11.0 H (0.0-7.3) % Lymphocytes # (Manual) 0.5 L (1.2-5.4) K/mm3 Chloride 92.0 L (98-107) mmol/L Carbon Dioxide 19 L (22-30) mmol/L BUN 46 H (9-20) mg/dL Creatinine 13.0 H (0.8-1.5) mg/dL Glucose 126 H (75-100) mg/dL Calcium 8.0 L (8.4-10.2) mg/dL Phosphorus 4.80 H (2.5-4.5) mg/dL Total Bilirubin 1.50 H (0.1-1.2) mg/dL Direct Bilirubin 0.4 H (0-0.2) mg/dL Albumin 3.4 L (3.9-5) g/dL
[2017-05-13] MEDS ORDERED: NACL 0.9% 100 ML IV PRN (14:10)
[2017-05-13] MEDS ORDERED: GEODON IM PRN (16:00)
--- NOTE | 2017-05-13 18:49 | Progress Note ---
Assessment and Plan Assessment and plan: --Toxic metabolic encephalopathy; multifactorial Secondary to end-stage renal disease, due to HIV AIDS, opportunistic infections , and possible drug abuse, Unable to check urine toxicology, as patient is end- stage renal disease Neuro workup is in progress, urology following Consult ID --HIV AIDS; ID consulted, continue current management --End-stage renal disease; on hemodialysis per schedule Nephrology following -- psychosis ; multifactorial, consult psych when patient is more alert and verbal --Obesity; patient needs to lose weight , diet modification to decrease stable --DVT prophylaxis; Lovenox Follow neurology ID evaluation and recommendations Follow MRI Restrain patient for safety as needed History Interval history: Patient seen and examined medical records reviewed Patient remains confused, and encephalopathy, restless Received Geodon last night, restrained for safety The patient is noncommunicative and confused Vital signs reviewed Neuro workup is in progress, neurology following Nephrology following for hemodialysis Consult ID to evaluate and manage his HIV/AIDS Hospitalist Physical - Constitutional Vitals: Temp Pulse Resp BP Pulse Ox 98.6 F 104 H 18 146/84 95 05/13/17 16:00 05/13/17 18:30 05/13/17 16:00 05/13/17 18:30 05/13/17 11:33 General appearance: Present: mild distress, obese, other (agitated ) - EENT Eyes: Present: PERRL - Neck Neck: Present: supple - Respiratory Respiratory effort: normal Respiratory: bilateral: diminished, rhonchi, negative: rales, wheezing - Cardiovascular Rhythm: regular Heart Sounds: Present: S1 & S2 - Extremities Extremities: no ischemia, No edema - Abdominal General gastrointestinal: soft, non-tender, non-distended, normal bowel sounds - Integumentary Integumentary: Present: clear, warm - Psychiatric Psychiatric: agitated, other (noncommunicative) - Neurologic Neurologic: moves all extremities Results - Labs CBC & Chem 7: 05/13/17 04:00 05/13/17 04:00 Labs: Laboratory Last Values WBC 3.5 K/mm3 (4.5-11.0) L 05/13/17 04:00 RBC 2.71 M/mm3 (3.65-5.03) L 05/13/17 04:00 Hgb 8.7 gm/dl (11.8-15.2) L 05/13/17 04:00 Hct 25.7 % (35.5-45.6) L 05/13/17 04:00 MCV 95 fl (84-94) H 05/13/17 04:00 MCH 32 pg (28-32) 05/13/17 04:00 MCHC 34 % (32-34) 05/13/17 04:00 RDW 14.1 % (13.2-15.2) 05/13/17 04:00 Plt Count 89 K/mm3 (140-440) L 05/13/17 04:00 Allen % (Auto) Link Fabric Machine Operator 05/13/17 04:00 Add Manual Diff Complete 05/13/17 04:00 Total Counted 100 05/13/17 04:00 Seg Neuts % (Manual) 74.0 % (40.0-70.0) H 05/13/17 04:00 Band Neutrophils % 2.0 % 05/13/17 04:00 Lymphocytes % (Manual) 13.0 % (13.4-35.0) L 05/13/17 04:00 Reactive Lymphs % (Man) 0 % 05/13/17 04:00 Monocytes % (Manual) 11.0 % (0.0-7.3) H 05/13/17 04:00 Eosinophils % (Manual) 0 % (0.0-4.3) 05/13/17 04:00 Basophils % (Manual) 0 % (0.0-1.8) 05/13/17 04:00 Metamyelocytes % 0 % 05/13/17 04:00 Myelocytes % 0 % 05/13/17 04:00 Promyelocytes % 0 % 05/13/17 04:00 Blast Cells % 0 % 05/13/17 04:00 Nucleated RBC % Not Reportable 05/13/17 04:00 Seg Neutrophils # Man 2.6 K/mm3 (1.8-7.7) 05/13/17 04:00 Band Neutrophils # 0.1 K/mm3 05/13/17 04:00 Lymphocytes # (Manual) 0.5 K/mm3 (1.2-5.4) L 05/13/17 04:00 Abs React Lymphs (Man) 0.0 K/mm3 05/13/17 04:00 Monocytes # (Manual) 0.4 K/mm3 (0.0-0.8) 05/13/17 04:00 Eosinophils # (Manual) 0.0 K/mm3 (0.0-0.4) 05/13/17 04:00 Basophils # (Manual) 0.0 K/mm3 (0.0-0.1) 05/13/17 04:00 Metamyelocytes # 0.0 K/mm3 05/13/17 04:00 Myelocytes # 0.0 K/mm3 05/13/17 04:00 Promyelocytes # 0.0 K/mm3 05/13/17 04:00 Blast Cells # 0.0 K/mm3 05/13/17 04:00 WBC Morphology Not Reportable 05/13/17 04:00 Hypersegmented Neuts Not Reportable 05/13/17 04:00 Hyposegmented Neuts Not Reportable 05/13/17 04:00 Hypogranular Neuts Not Reportable 05/13/17 04:00 Smudge Cells Not Reportable 05/13/17 04:00 Toxic Granulation Not Reportable 05/13/17 04:00 Toxic Vacuolation Not Reportable 05/13/17 04:00 Dohle Bodies Not Reportable 05/13/17 04:00 Pelger-Huet Anomaly Not Reportable 05/13/17 04:00 Christopher Rods Not Reportable 05/13/17 04:00 Platelet Estimate Consistent w auto 05/13/17 04:00 Clumped Platelets Not Reportable 05/13/17 04:00 Plt Clumps, EDTA Not Reportable 05/13/17 04:00 Large Platelets Not Reportable 05/13/17 04:00 Giant Platelets Not Reportable 05/13/17 04:00 Platelet Satelliting Not Reportable 05/13/17 04:00 Plt Morphology Comment Not Reportable 05/13/17 04:00 RBC Morphology Not Reportable 05/13/17 04:00 Dimorphic RBCs Not Reportable 05/13/17 04:00 Polychromasia Not Reportable 05/13/17 04:00 Hypochromasia 1+ 05/13/17 04:00 Poikilocytosis Not Reportable 05/13/17 04:00 Anisocytosis 1+ 05/13/17 04:00 Microcytosis Not Reportable 05/13/17 04:00 Macrocytosis Not Reportable 05/13/17 04:00 Spherocytes Not Reportable 05/13/17 04:00 Pappenheimer Bodies Not Reportable 05/13/17 04:00 Sickle Cells Not Reportable 05/13/17 04:00 Target Cells Not Reportable 05/13/17 04:00 Tear Drop Cells Not Reportable 05/13/17 04:00 Ovalocytes 1+ 05/13/17 04:00 Helmet Cells Not Reportable 05/13/17 04:00 [place] Bodies Not Reportable 05/13/17 04:00 [place] Rings Not Reportable 05/13/17 04:00 [place] Cells Not Reportable 05/13/17 04:00 Bite Cells Not Reportable 05/13/17 04:00 Crenated Cell Not Reportable 05/13/17 04:00 Elliptocytes Not Reportable 05/13/17 04:00 Acanthocytes (Spur) Not Reportable 05/13/17 04:00 Rouleaux Not Reportable 05/13/17 04:00 Hemoglobin C Crystals Not Reportable 05/13/17 04:00 Schistocytes Not Reportable 05/13/17 04:00 Malaria parasites Not Reportable 05/13/17 04:00 Joe Bodies Not Reportable 05/13/17 04:00 Hem Pathologist Commnt No 05/13/17 04:00 Sodium 139 mmol/L (137-145) 05/13/17 04:00 Potassium 4.3 mmol/L (3.6-5.0) 05/13/17 04:00 Chloride 92.0 mmol/L (98-107) L 05/13/17 04:00 Carbon Dioxide 19 mmol/L (22-30) L 05/13/17 04:00 Anion Gap 32 mmol/L 05/13/17 04:00 BUN 46 mg/dL (9-20) H 05/13/17 04:00 Creatinine 13.0 mg/dL (0.8-1.5) H 05/13/17 04:00 Estimated GFR 5 ml/min 05/13/17 04:00 BUN/Creatinine Ratio 4 % 05/13/17 04:00 Glucose 126 mg/dL (75-100) H 05/13/17 04:00 Lactic Acid 1.40 mmol/L (0.7-2.0) 05/10/17 18:01 Calcium 8.0 mg/dL (8.4-10.2) L 05/13/17 04:00 Phosphorus 4.80 mg/dL (2.5-4.5) H 05/13/17 04:00 Magnesium 1.70 mg/dL (1.7-2.3) 05/13/17 04:00 Total Bilirubin 1.50 mg/dL (0.1-1.2) H 05/13/17 04:00 Direct Bilirubin 0.4 mg/dL (0-0.2) H 05/13/17 04:00 Indirect Bilirubin 1.1 mg/dL 05/13/17 04:00 AST 21 units/L (5-40) 05/13/17 04:00 ALT 10 units/L (7-56) 05/13/17 04:00 Alkaline Phosphatase 81 units/L (35-129) 05/13/17 04:00 Ammonia 40.0 umol/L (25-60) 05/10/17 18:01 Total Creatine Kinase 373 units/L (55-170) H 05/10/17 18:01 Total Protein 6.8 g/dL (6.3-8.2) 05/13/17 04:00 Albumin 3.4 g/dL (3.9-5) L 05/13/17 04:00 Albumin/Globulin Ratio 1.0 % 05/13/17 04:00 Urine Color Yellow (Yellow) 05/10/17 17:06 Urine Turbidity Clear (Clear) 05/10/17 17:06 Urine pH 8.0 (5.0-7.0) H 05/10/17 17:06 Ur Specific [place] 1.009 (1.003-1.030) 05/10/17 17:06 Urine Protein 30 mg/dl mg/dL (Negative) 05/10/17 17:06 Urine Glucose (UA) 150 mg/dL (Negative) 05/10/17 17:06 Urine Ketones Neg mg/dL (Negative) 05/10/17 17:06 Urine Blood Sm (Negative) 05/10/17 17:06 Urine Nitrite Neg (Negative) 05/10/17 17:06 Urine Bilirubin Neg (Negative) 05/10/17 17:06 Urine Urobilinogen < 2.0 mg/dL (<2.0) 05/10/17 17:06 Ur Leukocyte Esterase Neg (Negative) 05/10/17 17:06 Urine WBC (Auto) < 1.0 /HPF (0.0-6.0) 05/10/17 17:06 Urine RBC (Auto) 6.0 /HPF (0.0-6.0) 05/10/17 17:06 U Epithel Cells (Auto) < 1.0 /HPF (0-13.0) 05/10/17 17:06 Urine Mucus Few /HPF 05/10/17 17:06 Salicylates < 0.3 mg/dL (2.8-20.0) L 05/10/17 18:01 Urine Opiates Screen TNR 05/10/17 17:06 Urine Methadone Screen TNR 05/10/17 17:06 Acetaminophen 15.0 ug/mL (10.0-30.0) 05/10/17 18:01 Ur Barbiturates Screen TNR 05/10/17 17:06 Ur Phencyclidine Scrn TNR 05/10/17 17:06 Ur Amphetamines Screen TNR 05/10/17 17:06 U Benzodiazepines Scrn TNR 05/10/17 17:06 Urine Cocaine Screen TNR 05/10/17 17:06 U Marijuana (THC) Screen TNR 05/10/17 17:06 Drugs of Abuse Note TNR 05/10/17 17:06
[2017-05-13] MEDS: PROVENTIL IH PRN (20:09)
[2017-05-13] MEDS ORDERED: NACL 0.9 (PRIMING MACHINE ONLY DIALYSIS) MC ONE (22:24)
[2017-05-13] MEDS: DIFLUCAN 200 MG/100 ML BAG IV SCH (22:25)
--- NOTE | 2017-05-14 02:03 | Cat Scan Report ---
FINAL REPORT EXAM: CT CHEST WO CON HISTORY: pt with AIDS with abnormal CXR eval for pna/caviti COMPARISON: Chest x-ray from May 10, 2017. Chest CT from October 2012. TECHNIQUE: Contiguous axial images were obtained. Additional sagittal and coronal reformatted images were obtained. FINDINGS: Heart borderline enlarged. Thoracic aorta normal in caliber. Mild calcification of the thoracic aorta. Moderate severe coronary artery calcification. Right PICC line is present with distal tip extending to the mid to distal SVC. There patchy airspace consolidations bilateral lower lobe slightly greater on the left. Trace bilateral pleural effusions. No obstructive lesion centrally within the tracheobronchial tree. There is several prominent but technically not enlarged intrathoracic lymph nodes likely reactive. No enlarged axillary lymph nodes. Visualized thyroid gland is unremarkable. There is medial deviation of the left true vocal cord. This is concerning for vocal cord paralysis. Remote left-sided rib fractures. Small hiatal hernia. Slight patulous appearance of the mid to upper thoracic esophagus. [id number] degenerative changes of the thoracic spine. Remote fracture of the superior sternal body. IMPRESSION: Patchy airspace consolidations bilateral lower lobes and trace effusions greater on the left concerning for combination of atelectasis and pneumonia. Deviation of the left true vocal cord concerning for paralysis of uncertain etiology and chronicity. Small hiatal hernia. Multiple remote left-sided rib fractures and remote fracture of the sternum.
[2017-05-14 11:36] LABS: INR 1.07 (0.87-1.13)
[2017-05-14 11:37] LABS: Partial Thromboplastin Time 47.3 Sec. (24.2-36.6)
--- NOTE | 2017-05-14 11:53 | Progress Note ---
Assessment and Plan Impression: * End stage renal disease on HD * Encephalopathy * HIV * Hypertension * Anemia secondary to ESRD * Pancytopenia * Secondary hyperPTH Plan: * Hemodialysis tomorrow - UF as tolerated * Resume MWF schedule next week * ID recommendations noted * Epogen TIW prn Subjective Date of service: 05/14/17 Principal diagnosis: AMS Interval history: No acute events Objective - Vital Signs Vital signs: Vital Signs - 12hr 05/14/17 05/14/17 05/14/17 04:44 08:24 11:26 Temperature 97.7 F 98.5 F 98.5 F Pulse Rate 100 H 95 H 94 H Respiratory 18 22 18 Rate Blood Pressure 137/67 110/58 126/64 O2 Sat by Pulse 93 95 95 Oximetry - General Appearance General appearance: well-developed, well-nourished EENT: ATNC Respiratory: Present: Clear to Ascultation Cardiology: regular, S1S2 Gastrointestinal: normoactive bowel sounds, no tenderness, distended Integumentary: no rash Neurologic: confused Musculoskeletal: other (no edema) Psychiatric: cooperative - Lab 05/15/17 08:52 05/15/17 08:52 Most recent lab results Calcium 8.0 mg/dL (8.4-10.2) L 05/13/17 04:00 Phosphorus 4.80 mg/dL (2.5-4.5) H 05/13/17 04:00 Magnesium 1.70 mg/dL (1.7-2.3) 05/13/17 04:00
[2017-05-14] MEDS: ATIVAN IV PRN ×2 (12:10→14:00)
[2017-05-14 13:28] LABS: Hematocrit 25.3 % (35.5-45.6); Hemoglobin 8.6 gm/dl (11.8-15.2); Mean Corpuscular HGB Conc 34 % (32-34); Mean Corpuscular Hemoglobin 32 pg (28-32); Mean Corpuscular Volume 95 fl (84-94); Red Blood Count 2.66 M/mm3 (3.65-5.03); Red Cell Distribution Width 13.6 % (13.2-15.2)
[2017-05-14 13:29] LABS: Platelet Count 85 K/mm3 (140-440)
[2017-05-14] MEDS: DIFLUCAN 200 MG/100 ML BAG IV SCH (13:29)
[2017-05-14 14:40] LABS: Basophils % (Manual) 0 % (0.0-1.8); Total Cells Counted 100
[2017-05-14 14:41] LABS: RBC Morphology Normal
--- NOTE | 2017-05-14 18:13 | Progress Note ---
Assessment and Plan Assessment: 1) SIRS: unknown etiology 2) Encephalopathy; unknown ? AIDS related vs opportunistic infection ( cryptococcal meningitis) vs medical. RPR neg 3) HIV/AIDS; Unknown CD4/VL. 4) ESRD on HD 5) Hypertension 6) Pancytopenia ? from AIDS vs opportunistic infection Plan: -continue fluconazole iv for now -f/u CD4, HIV viral load -lumbar punture for opening pressure and send CSF specimen for Gram stain and culture, glucose, protein, VDRL, HSV-PCR, cryptococcal antigen and culture - pt was agitated even after ativan -f/u HIV-genotype, CD4, HIV-viral load -f/u AFB blood cx -monitor mentation Anand Ramirez NP for Dr. Allie Cordon MD Infectious Diseases Specialist [facility] M [phone] O [phone] Subjective Date of service: 05/14/17 Principal diagnosis: AMS Interval history: More alert still some agitation. No fever. Microbiology: Blood cultures: 05/10 NGTD Repiratory cultures: Urine cultures Crypto serum antigen: neg Current Antimicrobials: fluconazole 05/13 Previous Antimicrobials: Objective - Exam Narrative Exam: General appearance: Alert in NAD, conversant but confused Eyes: anicteric sclerae, moist conjunctivae; no lid-lag; PERRLA HENT: Atraumatic; oropharynx clear Neck: Trachea midline; supple, no thyromegaly or lymphadenopathy Lungs: CTA CV: RRR, no murmurs Abdomen: Soft, non-tender; no masses or hepatosplenomegaly Extremities: No peripheral edema or extremity lymphadenopathy Skin: Normal temperature, turgor and texture; no rash, ulcers or subcutaneous nodules Psych:confused slurred speech Neuro: alert confused slurred speech Lines: No CVL / PICC - Constitutional Vitals: Vital Signs Temp Pulse Resp BP Pulse Ox 98.1 F 101 H 22 152/70 95 05/14/17 15:42 05/14/17 15:42 05/14/17 15:42 05/14/17 15:42 05/14/17 15:42 Temperature -Last 24 Hours Temperature 98.1 F Temperature 98.5 F Temperature 98.5 F Temperature 97.7 F Temperature 99.6 F Temperature 98.4 F - Labs CBC & Chem 7: 05/14/17 09:30 05/13/17 04:00 Labs: Abnormal lab results 05/14/17 05/14/17 Range/Units 09:30 11:15 WBC 2.4 L (4.5-11.0) K/mm3 RBC 2.66 L (3.65-5.03) M/mm3 Hgb 8.6 L (11.8-15.2) gm/dl Hct 25.3 L (35.5-45.6) % MCV 95 H (84-94) fl Plt Count 85 L (140-440) K/mm3 Monocytes % (Manual) 17.0 H (0.0-7.3) % Seg Neutrophils # Man 1.3 L (1.8-7.7) K/mm3 Lymphocytes # (Manual) 0.6 L (1.2-5.4) K/mm3 APTT 47.3 H (24.2-36.6) Sec.
[2017-05-14] MEDS ORDERED: TYLENOL PR PRN (19:14)
--- NOTE | 2017-05-14 19:38 | Progress Note ---
Assessment and Plan Assessment and plan: --Toxic metabolic encephalopathy; multifactorial due to HIV AIDS, possible opportunistic infections, cryptococcal meningitis ID advised MRI, lumbar puncture, Neurology and ID following --HIV AIDS; management per ID --SIRS; continue supportive care --End-stage renal disease; on hemodialysis per schedule Nephrology following -- psychosis ; multifactorial, consult psych when patient is more alert and verbal --Obesity; patient needs to lose weight , diet modification to decrease stable --DVT prophylaxis; Lovenox Restrain patient for safety as needed Consults and recommendations noted and appreciated Plan of care discussed with the patient's nurse History Interval history: Patient seen and examined medical records reviewed Patient is confused and agitated, sometimes more alert and responds to simple questions No new events reported by the nursing staff Vital signs reviewed Hospitalist Physical - Constitutional Vitals: Temp Pulse Resp BP Pulse Ox 98.1 F 101 H 22 152/70 95 05/14/17 15:42 05/14/17 15:42 05/14/17 15:42 05/14/17 15:42 05/14/17 15:42 General appearance: Present: no acute distress, other (agitated , confused) - EENT Eyes: Present: PERRL, EOM intact - Neck Neck: Present: supple, normal ROM - Respiratory Respiratory effort: normal Respiratory: bilateral: diminished, negative: rales, rhonchi, wheezing - Cardiovascular Rhythm: regular Heart Sounds: Present: S1 & S2 - Extremities Extremities: no ischemia, No edema Peripheral Pulses: within normal limits - Abdominal General gastrointestinal: soft, non-distended, normal bowel sounds - Integumentary Integumentary: Present: clear, warm - Psychiatric Psychiatric: agitated, other (minimally communicated) - Neurologic Neurologic: moves all extremities Results - Labs CBC & Chem 7: 05/14/17 09:30 05/13/17 04:00 Labs: Laboratory Last Values WBC 2.4 K/mm3 (4.5-11.0) L 05/14/17 09:30 RBC 2.66 M/mm3 (3.65-5.03) L 05/14/17 09:30 Hgb 8.6 gm/dl (11.8-15.2) L 05/14/17 09:30 Hct 25.3 % (35.5-45.6) L 05/14/17 09:30 MCV 95 fl (84-94) H 05/14/17 09:30 MCH 32 pg (28-32) 05/14/17 09:30 MCHC 34 % (32-34) 05/14/17 09:30 RDW 13.6 % (13.2-15.2) 05/14/17 09:30 Plt Count 85 K/mm3 (140-440) L 05/14/17 09:30 Sebastian % (Auto) Services Coordinator 05/14/17 09:30 Add Manual Diff Complete 05/14/17 09:30 Total Counted 100 05/14/17 09:30 Seg Neuts % (Manual) 55.0 % (40.0-70.0) 05/14/17 09:30 Band Neutrophils % 0 % 05/14/17 09:30 Lymphocytes % (Manual) 27.0 % (13.4-35.0) 05/14/17 09:30 Reactive Lymphs % (Man) 0 % 05/14/17 09:30 Monocytes % (Manual) 17.0 % (0.0-7.3) H 05/14/17 09:30 Eosinophils % (Manual) 1.0 % (0.0-4.3) 05/14/17 09:30 Basophils % (Manual) 0 % (0.0-1.8) 05/14/17 09:30 Metamyelocytes % 0 % 05/14/17 09:30 Myelocytes % 0 % 05/14/17 09:30 Promyelocytes % 0 % 05/14/17 09:30 Blast Cells % 0 % 05/14/17 09:30 Nucleated RBC % Not Reportable 05/14/17 09:30 Seg Neutrophils # Man 1.3 K/mm3 (1.8-7.7) L 05/14/17 09:30 Band Neutrophils # 0.0 K/mm3 05/14/17 09:30 Lymphocytes # (Manual) 0.6 K/mm3 (1.2-5.4) L 05/14/17 09:30 Abs React Lymphs (Man) 0.0 K/mm3 05/14/17 09:30 Monocytes # (Manual) 0.4 K/mm3 (0.0-0.8) 05/14/17 09:30 Eosinophils # (Manual) 0.0 K/mm3 (0.0-0.4) 05/14/17 09:30 Basophils # (Manual) 0.0 K/mm3 (0.0-0.1) 05/14/17 09:30 Metamyelocytes # 0.0 K/mm3 05/14/17 09:30 Myelocytes # 0.0 K/mm3 05/14/17 09:30 Promyelocytes # 0.0 K/mm3 05/14/17 09:30 Blast Cells # 0.0 K/mm3 05/14/17 09:30 WBC Morphology Not Reportable 05/14/17 09:30 Hypersegmented Neuts Not Reportable 05/14/17 09:30 Hyposegmented Neuts Not Reportable 05/14/17 09:30 Hypogranular Neuts Not Reportable 05/14/17 09:30 Smudge Cells Not Reportable 05/14/17 09:30 Toxic Granulation Not Reportable 05/14/17 09:30 Toxic Vacuolation Not Reportable 05/14/17 09:30 Dohle Bodies Not Reportable 05/14/17 09:30 Pelger-Huet Anomaly Not Reportable 05/14/17 09:30 Christopher Rods Not Reportable 05/14/17 09:30 Platelet Estimate Not Reportable 05/14/17 09:30 Clumped Platelets Not Reportable 05/14/17 09:30 Plt Clumps, EDTA Not Reportable 05/14/17 09:30 Large Platelets Not Reportable 05/14/17 09:30 Giant Platelets Not Reportable 05/14/17 09:30 Platelet Satelliting Not Reportable 05/14/17 09:30 Plt Morphology Comment Not Reportable 05/14/17 09:30 RBC Morphology Normal 05/14/17 09:30 Dimorphic RBCs Not Reportable 05/14/17 09:30 Polychromasia Not Reportable 05/14/17 09:30 Hypochromasia Not Reportable 05/14/17 09:30 Poikilocytosis Not Reportable 05/14/17 09:30 Anisocytosis Not Reportable 05/14/17 09:30 Microcytosis Not Reportable 05/14/17 09:30 Macrocytosis Not Reportable 05/14/17 09:30 Spherocytes Not Reportable 05/14/17 09:30 Pappenheimer Bodies Not Reportable 05/14/17 09:30 Sickle Cells Not Reportable 05/14/17 09:30 Target Cells Not Reportable 05/14/17 09:30 Tear Drop Cells Not Reportable 05/14/17 09:30 Ovalocytes Not Reportable 05/14/17 09:30 Helmet Cells Not Reportable 05/14/17 09:30 [place] Bodies Not Reportable 05/14/17 09:30 [place] Rings Not Reportable 05/14/17 09:30 [place] Cells Not Reportable 05/14/17 09:30 Bite Cells Not Reportable 05/14/17 09:30 Crenated Cell Not Reportable 05/14/17 09:30 Elliptocytes Not Reportable 05/14/17 09:30 Acanthocytes (Spur) Not Reportable 05/14/17 09:30 Rouleaux Not Reportable 05/14/17 09:30 Hemoglobin C Crystals Not Reportable 05/14/17 09:30 Schistocytes Not Reportable 05/14/17 09:30 Malaria parasites Not Reportable 05/14/17 09:30 Joe Bodies Not Reportable 05/14/17 09:30 Hem Pathologist Commnt No 05/14/17 09:30 PT 14.5 Sec. (12.2-14.9) 05/14/17 11:15 INR 1.07 (0.87-1.13) 05/14/17 11:15 APTT 47.3 Sec. (24.2-36.6) H 05/14/17 11:15 Sodium 139 mmol/L (137-145) 05/13/17 04:00 Potassium 4.3 mmol/L (3.6-5.0) 05/13/17 04:00 Chloride 92.0 mmol/L (98-107) L 05/13/17 04:00 Carbon Dioxide 19 mmol/L (22-30) L 05/13/17 04:00 Anion Gap 32 mmol/L 05/13/17 04:00 BUN 46 mg/dL (9-20) H 05/13/17 04:00 Creatinine 13.0 mg/dL (0.8-1.5) H 05/13/17 04:00 Estimated GFR 5 ml/min 05/13/17 04:00 BUN/Creatinine Ratio 4 % 05/13/17 04:00 Glucose 126 mg/dL (75-100) H 05/13/17 04:00 Lactic Acid 1.40 mmol/L (0.7-2.0) 05/10/17 18:01 Calcium 8.0 mg/dL (8.4-10.2) L 05/13/17 04:00 Phosphorus 4.80 mg/dL (2.5-4.5) H 05/13/17 04:00 Magnesium 1.70 mg/dL (1.7-2.3) 05/13/17 04:00 Total Bilirubin 1.50 mg/dL (0.1-1.2) H 05/13/17 04:00 Direct Bilirubin 0.4 mg/dL (0-0.2) H 05/13/17 04:00 Indirect Bilirubin 1.1 mg/dL 05/13/17 04:00 AST 21 units/L (5-40) 05/13/17 04:00 ALT 10 units/L (7-56) 05/13/17 04:00 Alkaline Phosphatase 81 units/L (35-129) 05/13/17 04:00 Ammonia 40.0 umol/L (25-60) 05/10/17 18:01 Total Creatine Kinase 373 units/L (55-170) H 05/10/17 18:01 Total Protein 6.8 g/dL (6.3-8.2) 05/13/17 04:00 Albumin 3.4 g/dL (3.9-5) L 05/13/17 04:00 Albumin/Globulin Ratio 1.0 % 05/13/17 04:00 Urine Color Yellow (Yellow) 05/10/17 17:06 Urine Turbidity Clear (Clear) 05/10/17 17:06 Urine pH 8.0 (5.0-7.0) H 05/10/17 17:06 Ur Specific [place] 1.009 (1.003-1.030) 05/10/17 17:06 Urine Protein 30 mg/dl mg/dL (Negative) 05/10/17 17:06 Urine Glucose (UA) 150 mg/dL (Negative) 05/10/17 17:06 Urine Ketones Neg mg/dL (Negative) 05/10/17 17:06 Urine Blood Sm (Negative) 05/10/17 17:06 Urine Nitrite Neg (Negative) 05/10/17 17:06 Urine Bilirubin Neg (Negative) 05/10/17 17:06 Urine Urobilinogen < 2.0 mg/dL (<2.0) 05/10/17 17:06 Ur Leukocyte Esterase Neg (Negative) 05/10/17 17:06 Urine WBC (Auto) < 1.0 /HPF (0.0-6.0) 05/10/17 17:06 Urine RBC (Auto) 6.0 /HPF (0.0-6.0) 05/10/17 17:06 U Epithel Cells (Auto) < 1.0 /HPF (0-13.0) 05/10/17 17:06 Urine Mucus Few /HPF 05/10/17 17:06 Salicylates < 0.3 mg/dL (2.8-20.0) L 05/10/17 18:01 Urine Opiates Screen TNR 05/10/17 17:06 Urine Methadone Screen TNR 05/10/17 17:06 Acetaminophen 15.0 ug/mL (10.0-30.0) 05/10/17 18:01 Ur Barbiturates Screen TNR 05/10/17 17:06 Ur Phencyclidine Scrn TNR 05/10/17 17:06 Ur Amphetamines Screen TNR 05/10/17 17:06 U Benzodiazepines Scrn TNR 05/10/17 17:06 Urine Cocaine Screen TNR 05/10/17 17:06 U Marijuana (THC) Screen TNR 05/10/17 17:06 Drugs of Abuse Note TNR 05/10/17 17:06 RPR Nonreactive (Nonreactive) 05/13/17 16:03
[2017-05-14] MEDS ORDERED: APRESOLINE IV PRN (19:44)
[2017-05-14] MEDS: TYLENOL PO PRN (19:47)
[2017-05-14] MEDS: ZOFRAN IV PRN (19:47)
[2017-05-15 09:03] LABS: Hematocrit 27.1 % (35.5-45.6); Mean Corpuscular HGB Conc 33 % (32-34); Mean Corpuscular Hemoglobin 32 pg (28-32); Mean Corpuscular Volume 96 fl (84-94); Red Blood Count 2.82 M/mm3 (3.65-5.03); Red Cell Distribution Width 14.2 % (13.2-15.2)
[2017-05-15 09:18] LABS: Platelet Count 80 K/mm3 (140-440)
[2017-05-15 09:32] LABS: Calcium 8.2 mg/dL (8.4-10.2)
[2017-05-15 09:34] LABS: Albumin 3.2 g/dL (3.9-5); Bilirubin,Direct 0.8 mg/dL (0-0.2)
--- NOTE | 2017-05-15 11:58 | Progress Note ---
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 infections, cryptococcal meningitis ID advised MRI, lumbar puncture, Neurology and neurology following --HIV AIDS; management per ID --SIRS; continue supportive care --End-stage renal disease; on hemodialysis per schedule Nephrology following -- psychosis ; multifactorial, consult psych when patient is more alert and verbal --DVT prophylaxis; Lovenox Restrain patient for safety as needed Plan of care discussed with the patient's nurse History Interval history: Patient seen and examined in his room this morning medical records reviewed Patient is confused and agitated restrained for safety Underwent modified barium swallow, high risk of aspiration per speech and swallow Replace Dobbhoff and start tube feeding and reevaluate If no improvement PEG tube placement per GI Vital signs reviewed Hospitalist Physical - Constitutional Vitals: Temp Pulse Resp BP Pulse Ox 99.9 F H 110 H 22 158/79 93 05/15/17 08:00 05/15/17 08:00 05/15/17 08:00 05/15/17 08:00 05/15/17 08:58 General appearance: Present: mild distress, well-nourished, other (agitated , confused) - EENT Eyes: Present: PERRL, EOM intact - Neck Neck: Present: supple - Respiratory Respiratory effort: normal Respiratory: bilateral: diminished, rhonchi, negative: rales, wheezing - Cardiovascular Rhythm: regular Heart Sounds: Present: S1 & S2 - Extremities Extremities: no ischemia, No edema - Abdominal General gastrointestinal: soft, non-tender, non-distended, normal bowel sounds - Integumentary Integumentary: Present: clear, warm - Psychiatric Psychiatric: agitated, other (first) - Neurologic Neurologic: moves all extremities Results - Labs CBC & Chem 7: 05/15/17 08:52 05/15/17 08:52 Labs: Laboratory Last Values WBC 3.7 K/mm3 (4.5-11.0) L 05/15/17 08:52 RBC 2.82 M/mm3 (3.65-5.03) L 05/15/17 08:52 Hgb 9.0 gm/dl (11.8-15.2) L 05/15/17 08:52 Hct 27.1 % (35.5-45.6) L 05/15/17 08:52 MCV 96 fl (84-94) H 05/15/17 08:52 MCH 32 pg (28-32) 05/15/17 08:52 MCHC 33 % (32-34) 05/15/17 08:52 RDW 14.2 % (13.2-15.2) 05/15/17 08:52 Plt Count 80 K/mm3 (140-440) L 05/15/17 08:52 [place] % (Auto) Dock Pumper 05/14/17 09:30 Add Manual Diff Complete 05/14/17 09:30 Total Counted 100 05/14/17 09:30 Seg Neuts % (Manual) 55.0 % (40.0-70.0) 05/14/17 09:30 Band Neutrophils % 0 % 05/14/17 09:30 Lymphocytes % (Manual) 27.0 % (13.4-35.0) 05/14/17 09:30 Reactive Lymphs % (Man) 0 % 05/14/17 09:30 Monocytes % (Manual) 17.0 % (0.0-7.3) H 05/14/17 09:30 Eosinophils % (Manual) 1.0 % (0.0-4.3) 05/14/17 09:30 Basophils % (Manual) 0 % (0.0-1.8) 05/14/17 09:30 Metamyelocytes % 0 % 05/14/17 09:30 Myelocytes % 0 % 05/14/17 09:30 Promyelocytes % 0 % 05/14/17 09:30 Blast Cells % 0 % 05/14/17 09:30 Nucleated RBC % Not Reportable 05/14/17 09:30 Seg Neutrophils # Man 1.3 K/mm3 (1.8-7.7) L 05/14/17 09:30 Band Neutrophils # 0.0 K/mm3 05/14/17 09:30 Lymphocytes # (Manual) 0.6 K/mm3 (1.2-5.4) L 05/14/17 09:30 Abs React Lymphs (Man) 0.0 K/mm3 05/14/17 09:30 Monocytes # (Manual) 0.4 K/mm3 (0.0-0.8) 05/14/17 09:30 Eosinophils # (Manual) 0.0 K/mm3 (0.0-0.4) 05/14/17 09:30 Basophils # (Manual) 0.0 K/mm3 (0.0-0.1) 05/14/17 09:30 Metamyelocytes # 0.0 K/mm3 05/14/17 09:30 Myelocytes # 0.0 K/mm3 05/14/17 09:30 Promyelocytes # 0.0 K/mm3 05/14/17 09:30 Blast Cells # 0.0 K/mm3 05/14/17 09:30 WBC Morphology Not Reportable 05/14/17 09:30 Hypersegmented Neuts Not Reportable 05/14/17 09:30 Hyposegmented Neuts Not Reportable 05/14/17 09:30 Hypogranular Neuts Not Reportable 05/14/17 09:30 Smudge Cells Not Reportable 05/14/17 09:30 Toxic Granulation Not Reportable 05/14/17 09:30 Toxic Vacuolation Not Reportable 05/14/17 09:30 Dohle Bodies Not Reportable 05/14/17 09:30 Pelger-Huet Anomaly Not Reportable 05/14/17 09:30 Christopher Rods Not Reportable 05/14/17 09:30 Platelet Estimate Not Reportable 05/14/17 09:30 Clumped Platelets Not Reportable 05/14/17 09:30 Plt Clumps, EDTA Not Reportable 05/14/17 09:30 Large Platelets Not Reportable 05/14/17 09:30 Giant Platelets Not Reportable 05/14/17 09:30 Platelet Satelliting Not Reportable 05/14/17 09:30 Plt Morphology Comment Not Reportable 05/14/17 09:30 RBC Morphology Normal 05/14/17 09:30 Dimorphic RBCs Not Reportable 05/14/17 09:30 Polychromasia Not Reportable 05/14/17 09:30 Hypochromasia Not Reportable 05/14/17 09:30 Poikilocytosis Not Reportable 05/14/17 09:30 Anisocytosis Not Reportable 05/14/17 09:30 Microcytosis Not Reportable 05/14/17 09:30 Macrocytosis Not Reportable 05/14/17 09:30 Spherocytes Not Reportable 05/14/17 09:30 Pappenheimer Bodies Not Reportable 05/14/17 09:30 Sickle Cells Not Reportable 05/14/17 09:30 Target Cells Not Reportable 05/14/17 09:30 Tear Drop Cells Not Reportable 05/14/17 09:30 Ovalocytes Not Reportable 05/14/17 09:30 Helmet Cells Not Reportable 05/14/17 09:30 [place] Bodies Not Reportable 05/14/17 09:30 [place] Rings Not Reportable 05/14/17 09:30 [place] Cells Not Reportable 05/14/17 09:30 Bite Cells Not Reportable 05/14/17 09:30 Crenated Cell Not Reportable 05/14/17 09:30 Elliptocytes Not Reportable 05/14/17 09:30 Acanthocytes (Spur) Not Reportable 05/14/17 09:30 Rouleaux Not Reportable 05/14/17 09:30 Hemoglobin C Crystals Not Reportable 05/14/17 09:30 Schistocytes Not Reportable 05/14/17 09:30 Malaria parasites Not Reportable 05/14/17 09:30 Joe Bodies Not Reportable 05/14/17 09:30 Hem Pathologist Commnt No 05/14/17 09:30 PT 14.5 Sec. (12.2-14.9) 05/14/17 11:15 INR 1.07 (0.87-1.13) 05/14/17 11:15 APTT 47.3 Sec. (24.2-36.6) H 05/14/17 11:15 Sodium 137 mmol/L (137-145) 05/15/17 08:52 Potassium 5.3 mmol/L (3.6-5.0) H D 05/15/17 08:52 Chloride 94.7 mmol/L (98-107) L 05/15/17 08:52 Carbon Dioxide 25 mmol/L (22-30) 05/15/17 08:52 Anion Gap 23 mmol/L 05/15/17 08:52 BUN 44 mg/dL (9-20) H 05/15/17 08:52 Creatinine 10.1 mg/dL (0.8-1.5) H 05/15/17 08:52 Estimated GFR 6 ml/min 05/15/17 08:52 BUN/Creatinine Ratio 4 % 05/15/17 08:52 Glucose 178 mg/dL (75-100) H 05/15/17 08:52 POC Glucose 123 (70-105) H 05/14/17 21:04 Lactic Acid 1.40 mmol/L (0.7-2.0) 05/10/17 18:01 Calcium 8.2 mg/dL (8.4-10.2) L 05/15/17 08:52 Phosphorus 4.80 mg/dL (2.5-4.5) H 05/13/17 04:00 Magnesium 1.70 mg/dL (1.7-2.3) 05/15/17 08:52 Total Bilirubin 1.60 mg/dL (0.1-1.2) H 05/15/17 08:52 Direct Bilirubin 0.8 mg/dL (0-0.2) H 05/15/17 08:52 Indirect Bilirubin 0.8 mg/dL 05/15/17 08:52 AST 13 units/L (5-40) 05/15/17 08:52 ALT 8 units/L (7-56) 05/15/17 08:52 Alkaline Phosphatase 70 units/L (35-129) 05/15/17 08:52 Ammonia 40.0 umol/L (25-60) 05/10/17 18:01 Total Creatine Kinase 373 units/L (55-170) H 05/10/17 18:01 Total Protein 7.2 g/dL (6.3-8.2) 05/15/17 08:52 Albumin 3.2 g/dL (3.9-5) L 05/15/17 08:52 Albumin/Globulin Ratio 0.8 % 05/15/17 08:52 Urine Color Yellow (Yellow) 05/10/17 17:06 Urine Turbidity Clear (Clear) 05/10/17 17:06 Urine pH 8.0 (5.0-7.0) H 05/10/17 17:06 Ur Specific [place] 1.009 (1.003-1.030) 05/10/17 17:06 Urine Protein 30 mg/dl mg/dL (Negative) 05/10/17 17:06 Urine Glucose (UA) 150 mg/dL (Negative) 05/10/17 17:06 Urine Ketones Neg mg/dL (Negative) 05/10/17 17:06 Urine Blood Sm (Negative) 05/10/17 17:06 Urine Nitrite Neg (Negative) 05/10/17 17:06 Urine Bilirubin Neg (Negative) 05/10/17 17:06 Urine Urobilinogen < 2.0 mg/dL (<2.0) 05/10/17 17:06 Ur Leukocyte Esterase Neg (Negative) 05/10/17 17:06 Urine WBC (Auto) < 1.0 /HPF (0.0-6.0) 05/10/17 17:06 Urine RBC (Auto) 6.0 /HPF (0.0-6.0) 05/10/17 17:06 U Epithel Cells (Auto) < 1.0 /HPF (0-13.0) 05/10/17 17:06 Urine Mucus Few /HPF 05/10/17 17:06 Salicylates < 0.3 mg/dL (2.8-20.0) L 05/10/17 18:01 Urine Opiates Screen TNR 05/10/17 17:06 Urine Methadone Screen TNR 05/10/17 17:06 Acetaminophen 15.0 ug/mL (10.0-30.0) 05/10/17 18:01 Ur Barbiturates Screen TNR 05/10/17 17:06 Ur Phencyclidine Scrn TNR 05/10/17 17:06 Ur Amphetamines Screen TNR 05/10/17 17:06 U Benzodiazepines Scrn TNR 05/10/17 17:06 Urine Cocaine Screen TNR 05/10/17 17:06 U Marijuana (THC) Screen TNR 05/10/17 17:06 Drugs of Abuse Note TNR 05/10/17 17:06 RPR Nonreactive (Nonreactive) 05/13/17 16:03
--- NOTE | 2017-05-15 11:59 | Fluoroscopy Report ---
Modified barium swallow with video fluoroscopy: History: Patient coughing when eating. Findings: There is no anatomic obstruction to the flow of ingested liquid and semisolid and solid. Suspected penetration with liquids. Complete information will be provided by speech therapist. Impression: Findings as detailed above. DAP 3.135 Gycm2. Total dose 16.48mGy. Fluoroscopy time 2.1 minute.
--- NOTE | 2017-05-15 12:02 | XRay Report ---
Chest 2 views: History: Cough and fever. Findings: Cardiomegaly. Trachea is midline. Tip of right PICC line in MID superior vena cava. Infiltrates/discoid atelectasis right lower lobe. No pleural effusion. Left lower lobe obscured by enlarged heart. Impression: Discoid atelectasis/pneumonitis right lower lobe.
[2017-05-15] MEDS: DIFLUCAN 200 MG/100 ML BAG IV SCH (12:14)
--- NOTE | 2017-05-15 12:33 | Progress Note ---
Assessment and Plan Impression: * End stage renal disease on HD * Encephalopathy * HIV * Hypertension * Anemia secondary to ESRD * Pancytopenia * Secondary hyperPTH Plan: * Hemodialysis today - UF as tolerated * Resume MWF schedule next week * ID recommendations noted * Epogen TIW prn Subjective Date of service: 05/15/17 Principal diagnosis: AMS Interval history: No acute events overnight. Objective - Vital Signs Vital signs: Vital Signs - 12hr 05/15/17 05/15/17 05/15/17 04:15 08:00 08:58 Temperature 98.6 F 99.9 F H Pulse Rate 104 H 110 H Respiratory 20 22 Rate Blood Pressure 135/54 158/79 O2 Sat by Pulse 95 88 93 Oximetry - General Appearance General appearance: well-developed, well-nourished EENT: ATNC Neck: no JVD Respiratory: Present: Clear to Ascultation Cardiology: regular, S1S2 Gastrointestinal: normoactive bowel sounds, no tenderness, distended Integumentary: no rash Neurologic: confused Musculoskeletal: other (no edema) Psychiatric: cooperative - Lab 05/15/17 08:52 05/15/17 08:52 Most recent lab results Calcium 8.2 mg/dL (8.4-10.2) L 05/15/17 08:52 Phosphorus 4.80 mg/dL (2.5-4.5) H 05/13/17 04:00 Magnesium 1.70 mg/dL (1.7-2.3) 05/15/17 08:52
[2017-05-15] MEDS ORDERED: PANCREAZE DR 10,500 UNIT FEEDTUBE PRN (13:37)
[2017-05-15] MEDS ORDERED: SIMPLE SYRUP FEEDTUBE PRN ×2 (13:37)
[2017-05-15] MEDS ORDERED: SODIUM BICARBONATE FEEDTUBE PRN (13:37)
[2017-05-15] MEDS ORDERED: ZOSYN/NS 4.5GM/100ML 4.5 GM/100 ML VIAL IV SCH (17:00)
--- NOTE | 2017-05-15 17:21 | Progress Note ---
Assessment and Plan Assessment: 1) SIRS: unknown etiology; from aspiration pneumonitis +/- CSF opportunistic infection 2) Encephalopathy; unknown ? AIDS related vs opportunistic infection ( cryptococcal meningitis) vs medical. RPR neg. MRI showed ? anoxic injury 3) HIV/AIDS; Unknown CD4/VL. 4) ESRD on HD 5) Hypertension 6) Pancytopenia ? from AIDS vs opportunistic infection 7) Presumed aspiration pneumonitis: CXR + RLL pneumonia Plan: -add zosyn -continue fluconazole iv for now -neuro eval ? MRI anoxic injury -f/u CD4, HIV viral load -lumbar punture for opening pressure and send CSF specimen for Gram stain and culture, glucose, protein, VDRL, HSV-PCR, cryptococcal antigen and culture - pending -f/u HIV-genotype, CD4, HIV-viral load -f/u AFB blood cx -monitor mentation Allie Cordon MD Infectious Diseases Specialist [facility] [phone] O [phone] Subjective Date of service: 05/15/17 Principal diagnosis: AMS Interval history: More alert talking new fever 103. Microbiology: Blood cultures: 05/10 NGTD Repiratory cultures: Urine cultures Crypto serum antigen: neg Current Antimicrobials: fluconazole 05/13 Previous Antimicrobials: Objective - Exam Narrative Exam: General appearance: Alert in NAD, conversant but confused Eyes: anicteric sclerae, moist conjunctivae; no lid-lag; PERRLA HENT: Atraumatic; oropharynx clear Neck: Trachea midline; supple, no thyromegaly or lymphadenopathy Lungs: CTA CV: RRR, no murmurs Abdomen: Soft, non-tender; no masses or hepatosplenomegaly Extremities: No peripheral edema or extremity lymphadenopathy Skin: Normal temperature, turgor and texture; no rash, ulcers or subcutaneous nodules Psych:confused slurred speech Neuro: alert confused slurred speech Lines: No CVL / PICC - Constitutional Vitals: Vital Signs Temp Pulse Resp BP Pulse Ox 99.9 F H 110 H 22 158/79 93 05/15/17 08:00 05/15/17 08:00 05/15/17 08:00 05/15/17 08:00 05/15/17 08:58 Temperature -Last 24 Hours Temperature 99.9 F Temperature 98.6 F Temperature 101.1 F Temperature 103 F - Labs CBC & Chem 7: 05/15/17 08:52 05/15/17 08:52 Labs: Abnormal lab results 05/14/17 05/15/17 05/15/17 Range/Units 21:04 08:52 08:52 WBC (4.5-11.0) K/mm3 RBC (3.65-5.03) M/mm3 Hgb (11.8-15.2) gm/dl Hct (35.5-45.6) % MCV (84-94) fl Plt Count (140-440) K/mm3 Potassium 5.3 H D (3.6-5.0) mmol/L Chloride 94.7 L (98-107) mmol/L BUN 44 H (9-20) mg/dL Creatinine 10.1 H (0.8-1.5) mg/dL Glucose 178 H (75-100) mg/dL POC Glucose 123 H (70-105) Calcium 8.2 L (8.4-10.2) mg/dL Total Bilirubin 1.60 H (0.1-1.2) mg/dL Direct Bilirubin 0.8 H (0-0.2) mg/dL Albumin 3.2 L (3.9-5) g/dL 05/15/17 Range/Units 08:52 WBC 3.7 L (4.5-11.0) K/mm3 RBC 2.82 L (3.65-5.03) M/mm3 Hgb 9.0 L (11.8-15.2) gm/dl Hct 27.1 L (35.5-45.6) % MCV 96 H (84-94) fl Plt Count 80 L (140-440) K/mm3 Potassium (3.6-5.0) mmol/L Chloride (98-107) mmol/L BUN (9-20) mg/dL Creatinine (0.8-1.5) mg/dL Glucose (75-100) mg/dL POC Glucose (70-105) Calcium (8.4-10.2) mg/dL Total Bilirubin (0.1-1.2) mg/dL Direct Bilirubin (0-0.2) mg/dL Albumin (3.9-5) g/dL
[2017-05-15] MEDS: ZOSYN/NS 2.25 GM/50ML 2.25 GM/50 ML BAG IV SCH (17:54)
[2017-05-15] MEDS ORDERED: NACL 0.9% 1000 ML 2,000 ML ONE (22:02)
[2017-05-16] MEDS: ZOSYN/NS 2.25 GM/50ML 2.25 GM/50 ML BAG IV SCH ×3 (01:05→18:14)
[2017-05-16 05:10] LABS: Calcium 9.2 mg/dL (8.4-10.2)
--- NOTE | 2017-05-16 07:22 | XRay Report ---
FINAL REPORT EXAM: XR ABDOMEN 1V AP HISTORY: dobhouff confirmation COMPARISONS: 05/10/2017, CT chest 05/14/2017 FINDINGS: AP portable supine views of the abdomen A Dobhoff tube is present with tip oriented inferiorly in the region of the distal stomach/duodenal bulb wall. Positive enteric contrast is seen within distal small bowel and colon. No evident pneumoperitoneum. IMPRESSION: Dobhoff tube tip is in the region of the distal stomach/proximal duodenum.
[2017-05-16] MEDS ORDERED: SODIUM BICARBONATE FEEDTUBE PRN (08:36)
[2017-05-16] MEDS ORDERED: SIMPLE SYRUP FEEDTUBE PRN ×2 (08:36)
[2017-05-16] MEDS ORDERED: PANCREAZE DR 10,500 UNIT FEEDTUBE PRN (08:36)
--- NOTE | 2017-05-16 10:47 | Progress Note ---
Assessment and Plan Impression: * End stage renal disease on HD * Encephalopathy * HIV * Hypertension * Anemia secondary to ESRD * Pancytopenia * Secondary hyperPTH Plan: * Continue hemodialysis TTS; change to MWF schedule when nearing discharge * UF as tolerated * ID recommendations reviewed * MRI/MRA pending; neuro recommendations noted * Epogen TIW prn * Dose medications for renal function Subjective Date of service: 05/16/17 Principal diagnosis: AMS Interval history: Patient is off the floor for MRI at time of visit Objective - Exam Narrative Exam: Deferred - off the floor - Vital Signs Vital signs: Vital Signs - 12hr 05/15/17 05/15/17 05/16/17 23:11 23:16 05:07 Temperature 98.8 F 100.5 F H Pulse Rate 101 H 118 H Respiratory 18 18 Rate Blood Pressure 120/54 Blood Pressure 109/57 [Right] O2 Sat by Pulse 96 96 Oximetry 05/16/17 07:34 Temperature 99.5 F Pulse Rate 109 H Respiratory 24 Rate Blood Pressure 110/50 Blood Pressure [Right] O2 Sat by Pulse 94 Oximetry - Lab 05/15/17 08:52 05/16/17 Unknown Most recent lab results Calcium 9.2 mg/dL (8.4-10.2) 05/16/17 Unknown Phosphorus 4.80 mg/dL (2.5-4.5) H 05/13/17 04:00 Magnesium 1.70 mg/dL (1.7-2.3) 05/15/17 08:52
--- NOTE | 2017-05-16 11:22 | Magnetic Resonance Report ---
MRA NECK WITHOUT CONTRAST History: Stroke, stenosis. Findings: 3-dimensional [id number] imaging with rotational MIP images were obtained. The bilateral cervical carotid and vertebral systems appear patent bilaterally with less than 20% stenosis. No evidence for dissection. The vertebral arteries are codominant. IMPRESSION: Unremarkable MRA of the neck. No hemodynamically significant stenosis is identified.
[2017-05-16] MEDS: DIFLUCAN 200 MG/100 ML BAG IV SCH (11:45)
--- NOTE | 2017-05-16 15:33 | Progress Note ---
Assessment and Plan Assessment: 1) Sepsis: unknown etiology; from aspiration pneumonitis +/- less CSF opportunistic infection 2) Encephalopathy; unknown, resolved . MRI showed ? anoxic injury 3) HIV/AIDS; Unknown CD4/VL. He reports he takes his HIV med daily 4) ESRD on HD 5) Hypertension 6) Pancytopenia ? from AIDS vs opportunistic infection 7) Presumed aspiration pneumonitis: CXR + RLL pneumonia Plan: -continue zosyn -continue fluconazole -neuro eval ? MRI anoxic injury -f/u CD4, HIV viral load -cancel LP-encephalopathy resolved and no fever -f/u AFB blood cx -upon discharge he needs to see Dr Manuela Cordon MD Infectious Diseases Specialist [facility] [phone] O [phone] Subjective Date of service: 05/16/17 Principal diagnosis: AMS Interval history: Feels better, talking, following commands, tmax 100.2 Microbiology: Blood cultures: 05/10 neg 05/14 ngtd Repiratory cultures: Urine cultures Crypto serum antigen: neg Current Antimicrobials: fluconazole 05/13 zosyn 05/15 Previous Antimicrobials: Objective - Exam Narrative Exam: General appearance: Alert in NAD, conversant Eyes: anicteric sclerae, moist conjunctivae; no lid-lag; PERRLA HENT: Atraumatic; oropharynx clear Neck: Trachea midline; supple, no thyromegaly or lymphadenopathy Lungs: +nicole scattered crackles CV: RRR, no murmurs Abdomen: Soft, non-tender; no masses or hepatosplenomegaly Extremities: No peripheral edema or extremity lymphadenopathy Skin: Normal temperature, turgor and texture; no rash, ulcers or subcutaneous nodules Psych:confused slurred speech Neuro: alert confused slurred speech Lines: No CVL / PICC - Constitutional Vitals: Vital Signs Temp Pulse Resp BP Pulse Ox 99.5 F 109 H 24 110/50 94 05/16/17 07:34 05/16/17 07:34 05/16/17 07:34 05/16/17 07:34 05/16/17 07:34 Temperature -Last 24 Hours Temperature 99.5 F Temperature 100.5 F Temperature 98.8 F Temperature 100.1 F Temperature 100.2 F Temperature 100.0 F Temperature 99.3 F - Labs CBC & Chem 7: 05/15/17 08:52 05/16/17 Unknown Labs: Abnormal lab results 05/16/17 Range/Units Unknown Chloride 94.5 L (98-107) mmol/L BUN 22 H (9-20) mg/dL Creatinine 5.4 H (0.8-1.5) mg/dL Glucose 157 H (75-100) mg/dL
--- NOTE | 2017-05-16 18:06 | Progress Note ---
Assessment and Plan Assessment and plan: --Toxic metabolic encephalopathy; patient is alert and awake Responding appropriately today, continue supportive care MRA-negative, continue neuro checks In the setting of HIV AIDS,R/O opportunistic infections, cryptococcal Ag negative ID advised MRI, lumbar puncture, Neurology following --Dysphagia; aspiration risk on modified barium swallow Dobbhoff in place, tube feeding per protocol, Reevaluate in 1-2 days, --Febrile illness/sepsis ; MAXIMUM TEMPERATURE 100.5 blood cultures negative to date, chest x-ray; right-sided pneumonitis --Aspiration pneumonia; continue Zosyn follow cultures --HIV AIDS; management per ID --ESRD ; on hemodialysis per schedule,Nephrology following -- psychosis ; slightly improved, consult psych. --DVT prophylaxis; Lovenox Restrain patient for safety as needed Plan of care discussed with the patient and his nurse History Interval history: Patient seen and examined medical records reviewed Patient is more alerttoday responding appropriately Modified barium swallow study was abnormal This patient swallow recommended alternative feeding Placed Dobbhoff, started on tube feeding No new events reported by nursing staff Vital signs were stable Alert and awake responding appropriately to simple questions Hospitalist Physical - Constitutional Vitals: Temp Pulse Resp BP Pulse Ox 98.3 F 104 H 18 126/67 99 05/16/17 16:13 05/16/17 16:13 05/16/17 16:13 05/16/17 16:13 05/16/17 16:13 General appearance: Present: no acute distress, well-nourished, other (mild alert today ) - EENT Eyes: Present: PERRL, EOM intact - Neck Neck: Present: supple, normal ROM - Respiratory Respiratory effort: normal Respiratory: bilateral: diminished, rhonchi, negative: rales, wheezing - Cardiovascular Rhythm: regular Heart Sounds: Present: S1 & S2 - Extremities Extremities: no ischemia Extremity abnormal: edema - Abdominal General gastrointestinal: soft, non-tender, non-distended, normal bowel sounds - Integumentary Integumentary: Present: clear, warm - Psychiatric Psychiatric: appropriate mood/affect, cooperative - Neurologic Neurologic: moves all extremities Results - Labs CBC & Chem 7: 05/15/17 08:52 05/16/17 Unknown Labs: Laboratory Last Values WBC 3.7 K/mm3 (4.5-11.0) L 03/03/18 08:52 RBC 2.82 M/mm3 (3.65-5.03) L 05/15/17 08:52 Hgb 9.0 gm/dl (11.8-15.2) L 05/15/17 08:52 Hct 27.1 % (35.5-45.6) L 05/15/17 08:52 MCV 96 fl (84-94) H 05/15/17 08:52 MCH 32 pg (28-32) 05/15/17 08:52 MCHC 33 % (32-34) 05/15/17 08:52 RDW 14.2 % (13.2-15.2) 05/15/17 08:52 Plt Count 80 K/mm3 (140-440) L 05/15/17 08:52 [place] % (Auto) Highway Engineering Technician 05/14/17 09:30 Add Manual Diff Complete 05/14/17 09:30 Total Counted 100 05/14/17 09:30 Seg Neuts % (Manual) 55.0 % (40.0-70.0) 05/14/17 09:30 Band Neutrophils % 0 % 05/14/17 09:30 Lymphocytes % (Manual) 27.0 % (13.4-35.0) 05/14/17 09:30 Reactive Lymphs % (Man) 0 % 05/14/17 09:30 Monocytes % (Manual) 17.0 % (0.0-7.3) H 05/14/17 09:30 Eosinophils % (Manual) 1.0 % (0.0-4.3) 05/14/17 09:30 Basophils % (Manual) 0 % (0.0-1.8) 05/14/17 09:30 Metamyelocytes % 0 % 05/14/17 09:30 Myelocytes % 0 % 05/14/17 09:30 Promyelocytes % 0 % 05/14/17 09:30 Blast Cells % 0 % 05/14/17 09:30 Nucleated RBC % Not Reportable 05/14/17 09:30 Seg Neutrophils # Man 1.3 K/mm3 (1.8-7.7) L 05/14/17 09:30 Band Neutrophils # 0.0 K/mm3 05/14/17 09:30 Lymphocytes # (Manual) 0.6 K/mm3 (1.2-5.4) L 05/14/17 09:30 Abs React Lymphs (Man) 0.0 K/mm3 05/14/17 09:30 Monocytes # (Manual) 0.4 K/mm3 (0.0-0.8) 05/14/17 09:30 Eosinophils # (Manual) 0.0 K/mm3 (0.0-0.4) 05/14/17 09:30 Basophils # (Manual) 0.0 K/mm3 (0.0-0.1) 05/14/17 09:30 Metamyelocytes # 0.0 K/mm3 05/14/17 09:30 Myelocytes # 0.0 K/mm3 05/14/17 09:30 Promyelocytes # 0.0 K/mm3 05/14/17 09:30 Blast Cells # 0.0 K/mm3 05/14/17 09:30 WBC Morphology Not Reportable 05/14/17 09:30 Hypersegmented Neuts Not Reportable 05/14/17 09:30 Hyposegmented Neuts Not Reportable 05/14/17 09:30 Hypogranular Neuts Not Reportable 05/14/17 09:30 Smudge Cells Not Reportable 05/14/17 09:30 Toxic Granulation Not Reportable 05/14/17 09:30 Toxic Vacuolation Not Reportable 05/14/17 09:30 Dohle Bodies Not Reportable 05/14/17 09:30 Pelger-Huet Anomaly Not Reportable 05/14/17 09:30 Christopher Rods Not Reportable 05/14/17 09:30 Platelet Estimate Not Reportable 05/14/17 09:30 Clumped Platelets Not Reportable 05/14/17 09:30 Plt Clumps, EDTA Not Reportable 05/14/17 09:30 Large Platelets Not Reportable 05/14/17 09:30 Giant Platelets Not Reportable 05/14/17 09:30 Platelet Satelliting Not Reportable 05/14/17 09:30 Plt Morphology Comment Not Reportable 05/14/17 09:30 RBC Morphology Normal 05/14/17 09:30 Dimorphic RBCs Not Reportable 05/14/17 09:30 Polychromasia Not Reportable 05/14/17 09:30 Hypochromasia Not Reportable 05/14/17 09:30 Poikilocytosis Not Reportable 05/14/17 09:30 Anisocytosis Not Reportable 05/14/17 09:30 Microcytosis Not Reportable 05/14/17 09:30 Macrocytosis Not Reportable 05/14/17 09:30 Spherocytes Not Reportable 05/14/17 09:30 Pappenheimer Bodies Not Reportable 05/14/17 09:30 Sickle Cells Not Reportable 05/14/17 09:30 Target Cells Not Reportable 05/14/17 09:30 Tear Drop Cells Not Reportable 05/14/17 09:30 Ovalocytes Not Reportable 05/14/17 09:30 Helmet Cells Not Reportable 05/14/17 09:30 [place] Bodies Not Reportable 05/14/17 09:30 [place] Rings Not Reportable 05/14/17 09:30 Filemon Cells Not Reportable 05/14/17 09:30 Bite Cells Not Reportable 05/14/17 09:30 Crenated Cell Not Reportable 05/14/17 09:30 Elliptocytes Not Reportable 05/14/17 09:30 Acanthocytes (Spur) Not Reportable 05/14/17 09:30 Rouleaux Not Reportable 05/14/17 09:30 Hemoglobin C Crystals Not Reportable 05/14/17 09:30 Schistocytes Not Reportable 05/14/17 09:30 Malaria parasites Not Reportable 05/14/17 09:30 Joe Bodies Not Reportable 05/14/17 09:30 Hem Pathologist Commnt No 05/14/17 09:30 PT 14.5 Sec. (12.2-14.9) 05/14/17 11:15 INR 1.07 (0.87-1.13) 05/14/17 11:15 APTT 47.3 Sec. (24.2-36.6) H 05/14/17 11:15 Sodium 139 mmol/L (137-145) 05/16/17 Unknown Potassium 4.5 mmol/L (3.6-5.0) 05/16/17 Unknown Chloride 94.5 mmol/L (98-107) L 05/16/17 Unknown Carbon Dioxide 27 mmol/L (22-30) 05/16/17 Unknown Anion Gap 22 mmol/L 05/16/17 Unknown BUN 22 mg/dL (9-20) H 05/16/17 Unknown Creatinine 5.4 mg/dL (0.8-1.5) H 05/16/17 Unknown Estimated GFR 13 ml/min 05/16/17 Unknown BUN/Creatinine Ratio 4 % 05/16/17 Unknown Glucose 157 mg/dL (75-100) H 05/16/17 Unknown POC Glucose 123 (70-105) H 05/14/17 21:04 Lactic Acid 1.40 mmol/L (0.7-2.0) 05/10/17 18:01 Calcium 9.2 mg/dL (8.4-10.2) 05/16/17 Unknown Phosphorus 4.80 mg/dL (2.5-4.5) H 05/13/17 04:00 Magnesium 1.70 mg/dL (1.7-2.3) 05/15/17 08:52 Total Bilirubin 1.60 mg/dL (0.1-1.2) H 05/15/17 08:52 Direct Bilirubin 0.8 mg/dL (0-0.2) H 05/15/17 08:52 Indirect Bilirubin 0.8 mg/dL 05/15/17 08:52 AST 13 units/L (5-40) 05/15/17 08:52 ALT 8 units/L (7-56) 05/15/17 08:52 Alkaline Phosphatase 70 units/L (35-129) 05/15/17 08:52 Ammonia 40.0 umol/L (25-60) 05/10/17 18:01 Total Creatine Kinase 373 units/L (55-170) H 05/10/17 18:01 Total Protein 7.2 g/dL (6.3-8.2) 05/15/17 08:52 Albumin 3.2 g/dL (3.9-5) L 05/15/17 08:52 Albumin/Globulin Ratio 0.8 % 05/15/17 08:52 Urine Color Yellow (Yellow) 05/10/17 17:06 Urine Turbidity Clear (Clear) 05/10/17 17:06 Urine pH 8.0 (5.0-7.0) H 05/10/17 17:06 Ur Specific [place] 1.009 (1.003-1.030) 05/10/17 17:06 Urine Protein 30 mg/dl mg/dL (Negative) 05/10/17 17:06 Urine Glucose (UA) 150 mg/dL (Negative) 05/10/17 17:06 Urine Ketones Neg mg/dL (Negative) 05/10/17 17:06 Urine Blood Sm (Negative) 05/10/17 17:06 Urine Nitrite Neg (Negative) 05/10/17 17:06 Urine Bilirubin Neg (Negative) 05/10/17 17:06 Urine Urobilinogen < 2.0 mg/dL (<2.0) 05/10/17 17:06 Ur Leukocyte Esterase Neg (Negative) 05/10/17 17:06 Urine WBC (Auto) < 1.0 /HPF (0.0-6.0) 05/10/17 17:06 Urine RBC (Auto) 6.0 /HPF (0.0-6.0) 05/10/17 17:06 U Epithel Cells (Auto) < 1.0 /HPF (0-13.0) 05/10/17 17:06 Urine Mucus Few /HPF 05/10/17 17:06 Salicylates < 0.3 mg/dL (2.8-20.0) L 05/10/17 18:01 Urine Opiates Screen TNR 05/10/17 17:06 Urine Methadone Screen TNR 05/10/17 17:06 Acetaminophen 15.0 ug/mL (10.0-30.0) 05/10/17 18:01 Ur Barbiturates Screen TNR 05/10/17 17:06 Ur Phencyclidine Scrn TNR 05/10/17 17:06 Ur Amphetamines Screen TNR 05/10/17 17:06 U Benzodiazepines Scrn TNR 05/10/17 17:06 Urine Cocaine Screen TNR 05/10/17 17:06 U Marijuana (THC) Screen TNR 05/10/17 17:06 Drugs of Abuse Note TNR 05/10/17 17:06 RPR Nonreactive (Nonreactive) 05/13/17 16:03
--- NOTE | 2017-05-16 18:29 | Event Note ---
Date: 05/15/17 Patient is family members, brothers, [id number] and other extended family Discussed with them in detail patient's condition, hospital course thus far, workup and reports Treatment plan, consultations recommendations, They had many questions, answered all of them to their satisfaction Patient's last was at the bedside. Continue to monitor the patient Adjust the management as needed
[2017-05-16] MEDS: ZOFRAN IV PRN (20:23)
[2017-05-16] MEDS: ATIVAN IV PRN (23:01)
[2017-05-17] MEDS: ZOSYN/NS 2.25 GM/50ML 2.25 GM/50 ML BAG IV SCH ×3 (01:53→18:14)
--- NOTE | 2017-05-17 07:58 | XRay Report ---
FINAL REPORT EXAM: XR ABDOMEN 1V AP HISTORY: doubhoff placement TECHNIQUE: A portable supine view the abdomen was obtained. FINDINGS: The tip of the Dobhoff tube is in the antrum of the stomach. The bowel gas pattern otherwise reveals retained oral contrast within the distal ileum and within the colon. The skeletal structures do not show any acute changes. There are non specific increased markings in both lung bases. IMPRESSION: The tip of the Dobhoff tube is in the antrum of the stomach.
--- NOTE | 2017-05-17 09:29 | Progress Note ---
Assessment and Plan Assessment and plan: --Toxic metabolic encephalopathy; patient is alert and awake sometimes confused Initial MRI; ?anoxic changes, MRA-negative, continue neuro checks Neurology and ID following --Dysphagia; aspiration risk on modified barium swallow Dobbhoff in place, tube feeding per protocol, Reevaluate in 1-2 days, Follow GI evaluation, if No improvement may need PEG --Febrile illness/sepsis ; afebrile more than 24 hours --Aspiration pneumonia; continue Zosyn follow cultures --HIV AIDS; management per ID --ESRD ; on hemodialysis per schedule,Nephrology following -- psychosis ; slightly improved, consult psych. --DVT prophylaxis; Lovenox Restrain patient for safety as needed I discussed the case in detail with multiple family members last week I discussed today with his brother from [facility] Disposition; per neurology and ID History Interval history: Patient seen and examined medical records reviewed Patient remains confused at times however sometimes patient responds to simple commands Patient's daughters at the bedside Receiving Dobbhoff feeds because of failed modified. In swallow study Reevaluate after 12 days GI consultation for dysphagia and possible EGD, if no improvement with swallow Patient may need PICC placement No new events reported by nursing staff Vital signs stable Hospitalist Physical - Constitutional Vitals: Temp Pulse Resp BP Pulse Ox 98.2 F 103 H 18 132/73 91 05/17/17 07:45 05/17/17 07:45 05/17/17 07:45 05/17/17 07:45 05/17/17 07:45 General appearance: Present: no acute distress, well-nourished, other (more alert today ) - EENT Eyes: Present: PERRL, EOM intact - Neck Neck: Present: supple, normal ROM - Respiratory Respiratory effort: normal Respiratory: bilateral: diminished, negative: rales, rhonchi, wheezing - Cardiovascular Rhythm: regular Heart Sounds: Present: S1 & S2 - Extremities Extremities: no ischemia, No edema - Abdominal General gastrointestinal: soft, non-tender, non-distended, normal bowel sounds - Integumentary Integumentary: Present: clear, warm - Psychiatric Psychiatric: appropriate mood/affect, agitated, other (confused at times) - Neurologic Neurologic: moves all extremities Results - Labs CBC & Chem 7: 05/15/17 08:52 05/16/17 Unknown Labs: Laboratory Last Values WBC 3.7 K/mm3 (4.5-11.0) L 05/15/17 08:52 RBC 2.82 M/mm3 (3.65-5.03) L 05/15/17 08:52 Hgb 9.0 gm/dl (11.8-15.2) L 05/15/17 08:52 Hct 27.1 % (35.5-45.6) L 05/15/17 08:52 MCV 96 fl (84-94) H 05/15/17 08:52 MCH 32 pg (28-32) 05/15/17 08:52 MCHC 33 % (32-34) 05/15/17 08:52 RDW 14.2 % (13.2-15.2) 05/15/17 08:52 Plt Count 80 K/mm3 (140-440) L 05/15/17 08:52 [place] % (Auto) Urinalysis Technician 05/14/17 09:30 Add Manual Diff Complete 05/14/17 09:30 Total Counted 100 05/14/17 09:30 Seg Neuts % (Manual) 55.0 % (40.0-70.0) 05/14/17 09:30 Band Neutrophils % 0 % 05/14/17 09:30 Lymphocytes % (Manual) 27.0 % (13.4-35.0) 05/14/17 09:30 Reactive Lymphs % (Man) 0 % 05/14/17 09:30 Monocytes % (Manual) 17.0 % (0.0-7.3) H 05/14/17 09:30 Eosinophils % (Manual) 1.0 % (0.0-4.3) 05/14/17 09:30 Basophils % (Manual) 0 % (0.0-1.8) 05/14/17 09:30 Metamyelocytes % 0 % 05/14/17 09:30 Myelocytes % 0 % 05/14/17 09:30 Promyelocytes % 0 % 05/14/17 09:30 Blast Cells % 0 % 05/14/17 09:30 Nucleated RBC % Not Reportable 05/14/17 09:30 Seg Neutrophils # Man 1.3 K/mm3 (1.8-7.7) L 05/14/17 09:30 Band Neutrophils # 0.0 K/mm3 05/14/17 09:30 Lymphocytes # (Manual) 0.6 K/mm3 (1.2-5.4) L 05/14/17 09:30 Abs React Lymphs (Man) 0.0 K/mm3 05/14/17 09:30 Monocytes # (Manual) 0.4 K/mm3 (0.0-0.8) 05/14/17 09:30 Eosinophils # (Manual) 0.0 K/mm3 (0.0-0.4) 05/14/17 09:30 Basophils # (Manual) 0.0 K/mm3 (0.0-0.1) 05/14/17 09:30 Metamyelocytes # 0.0 K/mm3 05/14/17 09:30 Myelocytes # 0.0 K/mm3 05/14/17 09:30 Promyelocytes # 0.0 K/mm3 05/14/17 09:30 Blast Cells # 0.0 K/mm3 05/14/17 09:30 WBC Morphology Not Reportable 05/14/17 09:30 Hypersegmented Neuts Not Reportable 05/14/17 09:30 Hyposegmented Neuts Not Reportable 05/14/17 09:30 Hypogranular Neuts Not Reportable 05/14/17 09:30 Smudge Cells Not Reportable 05/14/17 09:30 Toxic Granulation Not Reportable 05/14/17 09:30 Toxic Vacuolation Not Reportable 05/14/17 09:30 Dohle Bodies Not Reportable 05/14/17 09:30 Pelger-Huet Anomaly Not Reportable 05/14/17 09:30 Christopher Rods Not Reportable 05/14/17 09:30 Platelet Estimate Not Reportable 05/14/17 09:30 Clumped Platelets Not Reportable 05/14/17 09:30 Plt Clumps, EDTA Not Reportable 05/14/17 09:30 Large Platelets Not Reportable 05/14/17 09:30 Giant Platelets Not Reportable 05/14/17 09:30 Platelet Satelliting Not Reportable 05/14/17 09:30 Plt Morphology Comment Not Reportable 05/14/17 09:30 RBC Morphology Normal 05/14/17 09:30 Dimorphic RBCs Not Reportable 05/14/17 09:30 Polychromasia Not Reportable 05/14/17 09:30 Hypochromasia Not Reportable 05/14/17 09:30 Poikilocytosis Not Reportable 05/14/17 09:30 Anisocytosis Not Reportable 05/14/17 09:30 Microcytosis Not Reportable 05/14/17 09:30 Macrocytosis Not Reportable 05/14/17 09:30 Spherocytes Not Reportable 05/14/17 09:30 Pappenheimer Bodies Not Reportable 05/14/17 09:30 Sickle Cells Not Reportable 05/14/17 09:30 Target Cells Not Reportable 05/14/17 09:30 Tear Drop Cells Not Reportable 05/14/17 09:30 Ovalocytes Not Reportable 05/14/17 09:30 Helmet Cells Not Reportable 05/14/17 09:30 Martinez-[place] Bodies Not Reportable 05/14/17 09:30 [place] Rings Not Reportable 05/14/17 09:30 Filemon Cells Not Reportable 05/14/17 09:30 Bite Cells Not Reportable 05/14/17 09:30 Crenated Cell Not Reportable 05/14/17 09:30 Elliptocytes Not Reportable 05/14/17 09:30 Acanthocytes (Spur) Not Reportable 05/14/17 09:30 Rouleaux Not Reportable 05/14/17 09:30 Hemoglobin C Crystals Not Reportable 05/14/17 09:30 Schistocytes Not Reportable 05/14/17 09:30 Malaria parasites Not Reportable 05/14/17 09:30 Joe Bodies Not Reportable 05/14/17 09:30 Hem Pathologist Commnt No 05/14/17 09:30 PT 14.5 Sec. (12.2-14.9) 05/14/17 11:15 INR 1.07 (0.87-1.13) 05/14/17 11:15 APTT 47.3 Sec. (24.2-36.6) H 05/14/17 11:15 Sodium 139 mmol/L (137-145) 05/16/17 Unknown Potassium 4.5 mmol/L (3.6-5.0) 05/16/17 Unknown Chloride 94.5 mmol/L (98-107) L 05/16/17 Unknown Carbon Dioxide 27 mmol/L (22-30) 05/16/17 Unknown Anion Gap 22 mmol/L 05/16/17 Unknown BUN 22 mg/dL (9-20) H 05/16/17 Unknown Creatinine 5.4 mg/dL (0.8-1.5) H 05/16/17 Unknown Estimated GFR 13 ml/min 05/16/17 Unknown BUN/Creatinine Ratio 4 % 05/16/17 Unknown Glucose 157 mg/dL (75-100) H 05/16/17 Unknown POC Glucose 123 (70-105) H 05/14/17 21:04 Lactic Acid 1.40 mmol/L (0.7-2.0) 05/10/17 18:01 Calcium 9.2 mg/dL (8.4-10.2) 05/16/17 Unknown Phosphorus 4.80 mg/dL (2.5-4.5) H 05/13/17 04:00 Magnesium 1.70 mg/dL (1.7-2.3) 05/15/17 08:52 Total Bilirubin 1.60 mg/dL (0.1-1.2) H 05/15/17 08:52 Direct Bilirubin 0.8 mg/dL (0-0.2) H 05/15/17 08:52 Indirect Bilirubin 0.8 mg/dL 05/15/17 08:52 AST 13 units/L (5-40) 05/15/17 08:52 ALT 8 units/L (7-56) 05/15/17 08:52 Alkaline Phosphatase 70 units/L (35-129) 05/15/17 08:52 Ammonia 40.0 umol/L (25-60) 05/10/17 18:01 Total Creatine Kinase 373 units/L (55-170) H 05/10/17 18:01 Total Protein 7.2 g/dL (6.3-8.2) 05/15/17 08:52 Albumin 3.2 g/dL (3.9-5) L 05/15/17 08:52 Albumin/Globulin Ratio 0.8 % 05/15/17 08:52 Urine Color Yellow (Yellow) 05/10/17 17:06 Urine Turbidity Clear (Clear) 05/10/17 17:06 Urine pH 8.0 (5.0-7.0) H 05/10/17 17:06 Ur Specific [place] 1.009 (1.003-1.030) 05/10/17 17:06 Urine Protein 30 mg/dl mg/dL (Negative) 05/10/17 17:06 Urine Glucose (UA) 150 mg/dL (Negative) 05/10/17 17:06 Urine Ketones Neg mg/dL (Negative) 05/10/17 17:06 Urine Blood Sm (Negative) 05/10/17 17:06 Urine Nitrite Neg (Negative) 05/10/17 17:06 Urine Bilirubin Neg (Negative) 05/10/17 17:06 Urine Urobilinogen < 2.0 mg/dL (<2.0) 05/10/17 17:06 Ur Leukocyte Esterase Neg (Negative) 05/10/17 17:06 Urine WBC (Auto) < 1.0 /HPF (0.0-6.0) 05/10/17 17:06 Urine RBC (Auto) 6.0 /HPF (0.0-6.0) 05/10/17 17:06 U Epithel Cells (Auto) < 1.0 /HPF (0-13.0) 05/10/17 17:06 Urine Mucus Few /HPF 05/10/17 17:06 Salicylates < 0.3 mg/dL (2.8-20.0) L 05/10/17 18:01 Urine Opiates Screen TNR 05/10/17 17:06 Urine Methadone Screen TNR 05/10/17 17:06 Acetaminophen 15.0 ug/mL (10.0-30.0) 05/10/17 18:01 Ur Barbiturates Screen TNR 05/10/17 17:06 Ur Phencyclidine Scrn TNR 05/10/17 17:06 Ur Amphetamines Screen TNR 05/10/17 17:06 U Benzodiazepines Scrn TNR 05/10/17 17:06 Urine Cocaine Screen TNR 05/10/17 17:06 U Marijuana (THC) Screen TNR 05/10/17 17:06 Drugs of Abuse Note TNR 05/10/17 17:06 RPR Nonreactive (Nonreactive) 05/13/17 16:03
--- NOTE | 2017-05-17 09:48 | Progress Note ---
Assessment and Plan Impression: * End stage renal disease on HD * Encephalopathy * HIV * Hypertension * Anemia secondary to ESRD * Pancytopenia * Secondary hyperPTH Plan: * Shall change patient is dialysis days to MWF schedule for now as his outpatient * UF as tolerated * ID recommendations reviewed * MRA of the neck reported as being normal * Epogen TIW prn * Dose medications for renal function Subjective Date of service: 05/17/17 Principal diagnosis: AMS Interval history: Patient is comfortable. Appears more alert today. He seems to recognize me. However he is not sure where he is. Could not also recall today's date and time Objective - Vital Signs Vital signs: Vital Signs - 12hr 05/17/17 05/17/17 07:00 07:45 Temperature 97.7 F 98.2 F Pulse Rate 104 H 103 H Respiratory 18 18 Rate Blood Pressure 132/73 Blood Pressure 132/73 [Right] O2 Sat by Pulse 91 91 Oximetry - General Appearance General appearance: well-developed, well-nourished, appears stated age EENT: PERRL, mucous membranes moist Neck: no JVD, no thyromegaly, no carotid bruit, supple Respiratory: Present: Ronchi (bilateral scattered rhonchi) Cardiology: regular, normal heart rate, S1S2, no murmurs Gastrointestinal: normal, normoactive bowel sounds Integumentary: no rash, other (AV fistula in his left upper arm. Good bruit and thrill. No edema) - Lab 05/15/17 08:52 05/16/17 Unknown Most recent lab results Calcium 9.2 mg/dL (8.4-10.2) 05/16/17 Unknown Phosphorus 4.80 mg/dL (2.5-4.5) H 05/13/17 04:00 Magnesium 1.70 mg/dL (1.7-2.3) 05/15/17 08:52
[2017-05-17] MEDS: PROVENTIL IH PRN (09:53)
--- NOTE | 2017-05-17 10:53 | Progress Note ---
Assessment and Plan Assessment: 1) Sepsis: resolved; from aspiration pneumonitis +/- less CSF opportunistic infection 2) Encephalopathy; unknown, resolved . MRI showed ? anoxic injury 3) HIV/AIDS; Unknown CD4/VL. He reports he takes his HIV med daily -reyataz/ norvir, emtriva/viread and isentress 4) ESRD on HD 5) Hypertension 6) Pancytopenia ? from AIDS vs opportunistic infection 7) Presumed aspiration pneumonitis: CXR + RLL pneumonia Plan: -continue zosyn - day 3 -stop fluconazole -neuro eval ? MRI anoxic injury -f/u CD4, HIV viral load -f/u AFB blood cx -re-start HIV meds reyataz/norvir, emtriva/viread and isentress - discussed with pharmacy -upon discharge will do clindamycin 300 mg po TID until 05/21 to cover asp pneumonia - he needs to see Dr Roy I am singing off Allie Cordon MD Infectious Diseases Specialist [facility] ([facility]) M [phone] O [phone] Subjective Date of service: 05/17/17 Principal diagnosis: AMS Interval history: Feels better, talking, following commands, tmax 100.5 Microbiology: Blood cultures: 05/10 neg 05/14 ngtd Repiratory cultures: Urine cultures Crypto serum antigen: neg Current Antimicrobials: fluconazole 05/13 zosyn 05/15 Previous Antimicrobials: Objective - Exam Narrative Exam: General appearance: Alert in NAD, conversant Eyes: anicteric sclerae, moist conjunctivae; no lid-lag; PERRLA HENT: Atraumatic; oropharynx clear Neck: Trachea midline; supple, no thyromegaly or lymphadenopathy Lungs: +cta nicole CV: RRR, no murmurs Abdomen: Soft, non-tender; no masses or hepatosplenomegaly Extremities: No peripheral edema or extremity lymphadenopathy Skin: Normal temperature, turgor and texture; no rash, ulcers or subcutaneous nodules Psych:confused slurred speech Neuro: alert confused slurred speech Lines: No CVL / PICC - Constitutional Vitals: Vital Signs Temp Pulse Resp BP Pulse Ox 98.2 F 105 H 18 132/73 94 05/17/17 07:45 05/17/17 09:56 05/17/17 09:56 05/17/17 07:45 05/17/17 09:57 Temperature -Last 24 Hours Temperature 98.2 F Temperature 97.7 F Temperature 98.4 F Temperature 98.3 F - Labs CBC & Chem 7: 05/15/17 08:52 05/16/17 Unknown
[2017-05-17] MEDS: DIFLUCAN 200 MG/100 ML BAG IV SCH (12:16)
[2017-05-17] MEDS: TYLENOL PO PRN (12:17)
[2017-05-17] MEDS: PROVENTIL IH SCH ×2 (14:30→20:36)
[2017-05-17] MEDS: ATIVAN IV PRN ×2 (15:13→22:22)
--- NOTE | 2017-05-17 17:55 | XRay Report ---
FINAL REPORT PROCEDURE: Abdomen. TECHNIQUE: Portable AP view. HISTORY: Dobhoff tube placement. COMPARISON: Abdomen 05/16/2017. FINDINGS: The bowel gas pattern is normal. A Dobhoff tube enters the stomach. The soft tissues and regional skeleton are unremarkable. IMPRESSION: Dobhoff tube in stomach.
[2017-05-17] MEDS: EMTRIVA PO SCH (18:13)
[2017-05-17] MEDS: REYATAZ PO SCH (18:14)
[2017-05-17] MEDS: NORVIR PO SCH (18:14)
[2017-05-17] MEDS: VIREAD PO SCH (18:15)
[2017-05-17] MEDS ORDERED: NACL 0.9 (PRIMING MACHINE ONLY DIALYSIS) MC ONE (19:40)
[2017-05-18] MEDS: ZOSYN/NS 2.25 GM/50ML 2.25 GM/50 ML BAG IV SCH ×3 (00:14→17:33)
[2017-05-18] MEDS: ZOFRAN IV PRN (04:37)
[2017-05-18] MEDS: ATIVAN IV PRN ×2 (04:37→22:19)
[2017-05-18 05:04] LABS: Basophils % (Auto) 0.1 % (0.0-1.8); Calcium 9.8 mg/dL (8.4-10.2); Hematocrit 28.5 % (35.5-45.6); Hemoglobin 9.7 gm/dl (11.8-15.2); Lymphocytes # (Auto) 0.5 K/mm3 (1.2-5.4); Lymphocytes % (Auto) 4.9 % (13.4-35.0); Mean Corpuscular HGB Conc 34 % (32-34); Mean Corpuscular Hemoglobin 33 pg (28-32); Mean Corpuscular Volume 96 fl (84-94); Monocytes # (Auto) 1.5 K/mm3 (0.0-0.8); Monocytes % (Auto) 15.3 % (0.0-7.3); Platelet Count 171 K/mm3 (140-440); Red Blood Count 2.98 M/mm3 (3.65-5.03); Red Cell Distribution Width 14.5 % (13.2-15.2)
[2017-05-18] MEDS ORDERED: NOVOLOG SUB-Q SCH (07:30)
--- NOTE | 2017-05-18 08:49 | XRay Report ---
AP ABDOMEN: HISTORY: Dobbhoff tube placement. The distal tip of the Dobbhoff tube terminates in the antrum of the stomach. The abdominal gas pattern is unremarkable. No masses or organomegaly is identified and there is no gross evidence of free air or fluid. No significant soft tissue calcifications are noted. IMPRESSION: Unremarkable abdomen.
--- NOTE | 2017-05-18 08:50 | Consultation ---
REFERRING PHYSICIAN: Elif López M.D. INDICATION: Dysphagia. HISTORY OF PRESENT ILLNESS: The patient is a 57-year-old black male with history of HIV, end-stage renal disease and pelvic cancer as well as diabetes, GERD. The patient with pelvic cancer and currently undergoing evaluation. The patient presented and was admitted on 05/10/2017 when he was confused and disoriented. Since that time, the patient has been managed by primary team for those related symptoms. Related to that, the patient has had decreased p.o. intake. He subsequently had a modified barium swallow, which showed signs of aspiration. The patient failed the evaluation. GI is consulted to aid in management. Most of history is per chart and nursing staff. The patient is little weak and disoriented and unable to give full answers. Nursing staff reports that the patient is improving. PAST MEDICAL HISTORY: 1. Diabetes. 2. End-stage renal disease. 3. GERD. 4. HIV/AIDS. MEDICATIONS: See chart. ALLERGIES: BACTRIM. SOCIAL HISTORY: Reported no alcohol or tobacco. FAMILY HISTORY: Negative for colon cancer. REVIEW OF SYSTEMS: Per chart. GENERAL: Weakness. HEENT: No visual complaints. PULMONARY: Mild shortness of breath, chest pain. GASTROINTESTINAL: Reports no abdominal symptoms. All points of 13-point review of systems otherwise negative. PHYSICAL EXAMINATION: VITAL SIGNS: Temperature of 97.6, pulse 100, respirations 20, blood pressure 129/68. GENERAL: Fairly nourished, fairly thin black male, in no acute distress. HEENT: Pupils equal, round, reactive. PULMONARY: Rhonchi. CARDIOVASCULAR: Regular rhythm. ABDOMEN: Soft. SKIN: No obvious rashes. LABORATORY DATA: Pertinent for white count of 3.7, hemoglobin and hematocrit of 9 and 27.1, platelet count of 80. Chem-7 pertinent for BUN and creatinine of 22 and 5.4, otherwise within normal limits. LFTs stable. Swallow evaluation 05/15/2017 shows signs of aspiration. ASSESSMENT: A 57-year-old male, HIV positive, end-stage renal disease with other medical problems as noted above, admitted with encephalopathy. No signs of improvement. The patient has failed swallow evaluation with signs of aspiration. Chart was reviewed and speech report noted. The patient is currently getting nutrition via Dobhoff. Per nursing staff, since the patient is a little bit more alert, speech pathology is to come back in a.m. and reassess the patient, will await before making other recommendations. It is unclear whether or not the patient may need PEG or interventions. Management is noted below. PLAN: 1. We will await speech therapy. Follow up in a.m. for reassessment. 2. Continue current nutrition and meds. 3. Consider PEG and other intervention based on progress. 4. We will follow. [facility]# [id number] [facility]
--- NOTE | 2017-05-18 09:28 | Progress Note ---
Assessment and Plan Impression: * End stage renal disease on HD * Encephalopathy * HIV * Hypertension * Anemia secondary to ESRD * Pancytopenia * Secondary hyperPTH Plan: * Continue dialysis on MWF schedule for now as his outpatient * UF as tolerated * ID recommendations reviewed * MRA of the neck reported as being normal * Epogen TIW prn * Dose medications for renal function Subjective Date of service: 05/18/17 Principal diagnosis: AMS Interval history: Patient appears more alert today. Complains of nausea and hiccups. Denies any shortness of breath Objective - Vital Signs Vital signs: Vital Signs - 12hr 05/18/17 05/18/17 06:11 07:39 Temperature 98.5 F 99.9 F H Pulse Rate 127 H 127 H Respiratory 20 18 Rate Blood Pressure 136/56 Blood Pressure 155/45 [Right] O2 Sat by Pulse 98 96 Oximetry - General Appearance General appearance: well-developed, well-nourished, appears stated age EENT: PERRL, mucous membranes moist Neck: no JVD, no thyromegaly, no carotid bruit, supple Respiratory: Present: Clear to Ascultation Cardiology: regular, normal heart rate, S1S2, no murmurs Gastrointestinal: normal, normoactive bowel sounds Integumentary: no rash, other (no edema. AV fistula in his left upper arm. Good bruit and thrill) - Lab 05/18/17 04:00 05/18/17 04:00 Most recent lab results Calcium 9.8 mg/dL (8.4-10.2) 05/18/17 04:00 Phosphorus 2.20 mg/dL (2.5-4.5) L 05/18/17 04:00 Magnesium 2.00 mg/dL (1.7-2.3) 05/18/17 04:00
[2017-05-18] MEDS: NORVIR PO SCH (10:15)
[2017-05-18] MEDS: REYATAZ PO SCH (10:15)
[2017-05-18] MEDS: PROVENTIL IH SCH ×3 (10:17→19:56)
[2017-05-18] MEDS: TYLENOL PO PRN (11:51)
[2017-05-18] MEDS: NOVOLOG SUB-Q SCH ×2 (11:51→17:45)
--- NOTE | 2017-05-18 12:04 | Progress Note ---
Assessment and Plan // Toxic metabolic encephalopathy; patient is alert and awake sometimes confused Initial MRI; ?anoxic changes, MRA-negative, continue neuro checks Neurology and ID following // Pancytopenia; - secondary to underlying HIV AIDS, closely monitor // Dysphagia; aspiration risk need modified barium swallow study Dobbhoff in place, tube feeding per protocol, Reevaluate in 1-2 days, Follow GI evaluation, if No improvement may need PEG // Febrile illness ; afebrile more than 24 hours, likely from aspiration PNA //Aspiration pneumonia; continue Zosyn follow cultures. VQ scan negative for PE // HIV AIDS; management per ID, cont current meds //ESRD ; on hemodialysis per schedule,Nephrology following // psychosis ; slightly improved, consulted psych. // DVT prophylaxis; Lovenox Restrain patient for safety as needed Disposition; per neurology and ID Brief history: Patient is a 57-year-old -[place] male who is currently on maintenance hemodialysis on Nocturnal shift Wednesday, Wednesday, Wednesday, who has been admitted here with altered mental status off unclear etiology. Radiological test: head CT, brain MRI, Abdominal xrys VQ scan, neck CT Hospitalist Physical exam: General appearance: Present: no acute distress, well-nourished, other ( alert today ) - EENT Eyes: Present: PERRL, EOM intact, NG on place - Neck Neck: Present: supple, normal ROM - Respiratory Respiratory effort: normal Respiratory: bilateral: diminished, negative: rales, rhonchi, wheezing - Cardiovascular Rhythm: regular Heart Sounds: Present: S1 & S2 - Extremities Extremities: no ischemia, No edema - Abdominal General gastrointestinal: soft, non-tender, non-distended, normal bowel sounds - Integumentary Integumentary: Present: clear, warm - Psychiatric Psychiatric: appropriate mood/affect, agitated, other (confused at times) - Neurologic Neurologic: moves all extremities Subjective Date of service: 05/18/17 Principal diagnosis: AMS Interval history: Patient seen and examined. Medical records and medication list reviewed. No acute event overnight noted by the RN. Patient is tolerating TF diet, failed swallow study, need MBS Discussed plan of care at bedside with patient's family. Objective - Constitutional Vitals: Vital Signs - 12hr 05/18/17 05/18/17 05/18/17 06:11 07:39 08:00 Temperature 98.5 F 99.9 F H Pulse Rate 127 H 127 H Pulse Rate [ 108 H Anterior Bilateral Throughout] Pulse Rate [ 110 H Throughout] Respiratory 20 18 Rate Respiratory 20 Rate [Anterior Bilateral Throughout] Blood Pressure 136/56 Blood Pressure 155/45 [Right] O2 Sat by Pulse 98 96 Oximetry 05/18/17 10:00 Temperature Pulse Rate Pulse Rate [ Anterior Bilateral Throughout] Pulse Rate [ Throughout] Respiratory Rate Respiratory Rate [Anterior Bilateral Throughout] Blood Pressure Blood Pressure [Right] O2 Sat by Pulse 97 Oximetry - Labs CBC & Chem 7: 05/18/17 04:00 05/18/17 04:00 Labs: Abnormal lab results 05/18/17 05/18/17 05/18/17 Range/Units 04:00 04:00 11:46 RBC 2.98 L (3.65-5.03) M/mm3 Hgb 9.7 L (11.8-15.2) gm/dl Hct 28.5 L (35.5-45.6) % MCV 96 H (84-94) fl MCH 33 H (28-32) pg Lymph % (Auto) 4.9 L (13.4-35.0) % [place] % (Auto) 15.3 H (0.0-7.3) % Lymph # 0.5 L (1.2-5.4) K/mm3 [place] # 1.5 H (0.0-0.8) K/mm3 Seg Neutrophils % 79.7 H (40.0-70.0) % Sodium 136 L (137-145) mmol/L Chloride 89.4 L (98-107) mmol/L BUN 38 H (9-20) mg/dL Creatinine 5.5 H (0.8-1.5) mg/dL Glucose 383 H (75-100) mg/dL POC Glucose 461 H (70-105) Phosphorus 2.20 L (2.5-4.5) mg/dL
--- NOTE | 2017-05-18 12:18 | Gastroenterology Progress Note ---
Assessment and Plan GI: pt seen for dysphagia and problems with diet - speech pathology noted reviewed, pt for mBS in am - will await repeat mBS and consider GI intervention based on results Subjective Date of service: 05/18/17 Principal diagnosis: AMS Interval history: - no GI issues overnight Objective - Constitutional Vitals: Temp Pulse Resp BP Pulse Ox 99.9 F H 108 H 20 136/56 97 05/18/17 07:39 05/18/17 08:00 05/18/17 08:00 05/18/17 07:39 05/18/17 10:00 General appearance: no acute distress - EENT Eyes: PERRL - Respiratory Respiratory: bilateral: CTA - Cardiovascular Rhythm: regular Heart Sounds: Present: S1 & S2 - Gastrointestinal General gastrointestinal: Present: soft, non-tender, non-distended - Labs CBC & Chem 7: 05/18/17 04:00 05/18/17 04:00 Labs: Laboratory Results - last 24 hr 05/18/17 05/18/17 05/18/17 04:00 04:00 11:46 WBC 9.7 RBC 2.98 L Hgb 9.7 L Hct 28.5 L MCV 96 H MCH 33 H MCHC 34 RDW 14.5 Plt Count 171 D Lymph % (Auto) 4.9 L [place] % (Auto) 15.3 H Eos % (Auto) 0.0 Baso % (Auto) 0.1 Lymph # 0.5 L [place] # 1.5 H Eos # 0.0 Baso # 0.0 Seg Neutrophils % 79.7 H Seg Neutrophils # 7.7 Sodium 136 L Potassium 3.7 Chloride 89.4 L Carbon Dioxide 29 Anion Gap 21 BUN 38 H Creatinine 5.5 H Estimated GFR 13 BUN/Creatinine Ratio 7 Glucose 383 H POC Glucose 461 H Calcium 9.8 Phosphorus 2.20 L Magnesium 2.00
[2017-05-18] MEDS: HumuLIN R SUB-Q SCH ×2 (17:33→17:47)
[2017-05-18] MEDS: ALUM-MAG HYDROX-SIMETH 200-200-20MG/5ML PO PRN (18:51)
[2017-05-18 20:34] LABS: Chol/HDL Ratio 7.4 %
--- NOTE | 2017-05-19 00:37 | XRay Report ---
FINAL REPORT PROCEDURE: Portable AP chest x-ray TECHNIQUE: Chest radiograph anteroposterior view. CPT 35226 HISTORY: chest pain COMPARISON: Prior chest x-ray 05/10/2017 FINDINGS: The heart is magnified due to projection although appears to be a mildly enlarged. PICC line is seen entering from the right. The catheter seen in the mid SVC. This is unchanged. There is new patchy alveolar density in both lung bases suggesting atelectasis. I cannot exclude pneumonia. There is mild blunting of the lateral costophrenic angles which was seen on the prior study. This may reflect pleural scarring or persistent small pleural effusions. No acute bony abnormalities are identified.. IMPRESSION: Cardiomegaly. PICC line unchanged. Increased patchy alveolar densities in both lung bases suggesting atelectasis. Pneumonia needs clinical exclusion. Stable mild blunting lateral costophrenic angles as described. No acute bony abnormalities are seen. Fracture of the left 4th rib posterior laterally again visualized. I suspect this is old..
--- NOTE | 2017-05-19 00:45 | Nuclear Medicine Report ---
FINAL REPORT PROCEDURE: NM LUNG SCAN PERF/VENT TECHNIQUE: 5.0 mCi Tc-99m MAA was injected IV for pulmonary perfusion imaging in multiple projections. 15.0 mCi xenon-133 gas was inhaled for pulmonary ventilation imaging in multiple projections. Injection site: RIGHT antecubital fossa. CPT 07833 REGULATORY GUIDELINES: The patient was released based upon guidelines established in [place] State Regulations for Protection Against Radiation, Chapter 9121-36-30-35, Release of Individuals Containing Radioactive Drugs or Implants. HISTORY: chest pain. Evaluate pulmonary embolus. COMPARISON: No prior studies are available for comparison. FINDINGS: There is a small patchy perfusion defect involving the posterior basal segment of the left lower lobe. There is some motion artifact degrading the image quality on the left lateral view. No other perfusion defects are identified. No ventilation defects are seen. Wash-in and washout phase are unremarkable. IMPRESSION: Low probability for pulmonary embolus.
[2017-05-19] MEDS: NOVOLOG SUB-Q SCH ×4 (00:58→18:05)
[2017-05-19] MEDS: ZOSYN/NS 2.25 GM/50ML 2.25 GM/50 ML BAG IV SCH ×3 (00:59→16:56)
[2017-05-19] MEDS: ALUM-MAG HYDROX-SIMETH 200-200-20MG/5ML PO PRN (01:45)
[2017-05-19] MEDS: ATIVAN IV PRN (04:16)
[2017-05-19] MEDS: PROVENTIL IH SCH ×3 (07:24→20:42)
--- NOTE | 2017-05-19 12:56 | Progress Note ---
Assessment and Plan // hypotension following HD will give bolus of NS 500ml, will monitor closely // Toxic metabolic encephalopathy; patient is more alert and awake today Initial MRI; ?anoxic changes, MRA-negative, continue neuro checks Neurology and ID following // Pancytopenia; - secondary to underlying HIV AIDS, closely monitor // Dysphagia; aspiration risk need modified barium swallow study Dobbhoff in place, tube feeding per protocol, Reevaluate in 1-2 days, Follow GI evaluation, if No improvement may need PEG // Febrile illness ; afebrile more than 24 hours, likely from aspiration PNA //Aspiration pneumonia; continue Zosyn follow cultures. VQ scan negative for PE // HIV AIDS; management per ID, cont current meds //ESRD ; on hemodialysis per schedule,Nephrology following // psychosis ; slightly improved, consulted psych. // h/O rectal cancer diagnosed recently, had on e dose of chemo on 05/07, will get records from Dr Pablo office // DVT prophylaxis; Lovenox Restrain patient for safety as needed Disposition; per neurology and ID Brief history: Patient is a 57-year-old -[place] male who is currently on maintenance hemodialysis on Nocturnal shift Wednesday, Wednesday, Wednesday, who has been admitted here with altered mental status off unclear etiology. Radiological test: head CT, brain MRI, Abdominal xrys VQ scan, neck CT Hospitalist Physical exam: General appearance: Present: no acute distress, well-nourished, other ( alert today ) - EENT Eyes: Present: PERRL, EOM intact, NG on place - Neck Neck: Present: supple, normal ROM - Respiratory Respiratory effort: normal Respiratory: bilateral: diminished, negative: rales, rhonchi, wheezing - Cardiovascular Rhythm: regular Heart Sounds: Present: S1 & S2 - Extremities Extremities: no ischemia, No edema - Abdominal General gastrointestinal: soft, non-tender, non-distended, normal bowel sounds - Integumentary Integumentary: Present: clear, warm - Psychiatric Psychiatric: not agitated - Neurologic Neurologic: moves all extremities Subjective Date of service: 05/19/17 Principal diagnosis: AMS Interval history: Patient seen and examined. Medical records and medication list reviewed. No acute event overnight noted by the RN. Patient is tolerating TF diet, waiting for MBS BP dropped after HD today Objective - Constitutional Vitals: Vital Signs - 12hr 05/19/17 05/19/17 05/19/17 07:25 07:35 08:25 Temperature 97.5 F L Pulse Rate 108 H Pulse Rate [ 102 H 103 H Anterior Bilateral Throughout] Respiratory 18 Rate Respiratory 20 20 Rate [Anterior Bilateral Throughout] Blood Pressure 115/55 O2 Sat by Pulse 98 88 Oximetry 05/19/17 05/19/17 05/19/17 09:15 09:27 09:30 Temperature 97.5 F L Pulse Rate 103 H 102 H 100 H Pulse Rate [ Anterior Bilateral Throughout] Respiratory 22 Rate Respiratory Rate [Anterior Bilateral Throughout] Blood Pressure 121/26 106/46 120/54 O2 Sat by Pulse Oximetry 05/19/17 05/19/17 05/19/17 09:45 10:00 10:13 Temperature Pulse Rate 108 H 112 H 108 H Pulse Rate [ Anterior Bilateral Throughout] Respiratory Rate Respiratory Rate [Anterior Bilateral Throughout] Blood Pressure 96/46 81/31 103/45 O2 Sat by Pulse Oximetry 05/19/17 05/19/17 05/19/17 10:15 10:30 10:45 Temperature Pulse Rate 106 H 108 H 110 H Pulse Rate [ Anterior Bilateral Throughout] Respiratory Rate Respiratory Rate [Anterior Bilateral Throughout] Blood Pressure 93/45 88/36 79/36 O2 Sat by Pulse Oximetry 05/19/17 05/19/17 05/19/17 10:48 11:00 11:03 Temperature Pulse Rate 110 H 111 H 110 H Pulse Rate [ Anterior Bilateral Throughout] Respiratory Rate Respiratory Rate [Anterior Bilateral Throughout] Blood Pressure 80/37 62/27 77/36 O2 Sat by Pulse Oximetry 05/19/17 05/19/17 05/19/17 11:10 11:13 11:15 Temperature Pulse Rate 111 H 109 H 107 H Pulse Rate [ Anterior Bilateral Throughout] Respiratory Rate Respiratory Rate [Anterior Bilateral Throughout] Blood Pressure 74/55 97/44 85/40 O2 Sat by Pulse Oximetry 05/19/17 05/19/17 05/19/17 11:25 11:30 11:45 Temperature Pulse Rate 109 H 106 H 107 H Pulse Rate [ Anterior Bilateral Throughout] Respiratory Rate Respiratory Rate [Anterior Bilateral Throughout] Blood Pressure 91/44 95/49 104/48 O2 Sat by Pulse Oximetry 05/19/17 05/19/17 05/19/17 12:00 12:16 12:30 Temperature Pulse Rate 110 H 105 H 104 H Pulse Rate [ Anterior Bilateral Throughout] Respiratory Rate Respiratory Rate [Anterior Bilateral Throughout] Blood Pressure 83/33 99/46 99/52 O2 Sat by Pulse Oximetry 05/19/17 12:46 Temperature Pulse Rate 104 H Pulse Rate [ Anterior Bilateral Throughout] Respiratory Rate Respiratory Rate [Anterior Bilateral Throughout] Blood Pressure 107/51 O2 Sat by Pulse Oximetry - Labs CBC & Chem 7: 05/20/17 06:20 05/20/17 06:20 Labs: Abnormal lab results 05/18/17 05/18/17 05/18/17 Range/Units 17:34 19:42 19:44 D-Dimer 2866.46 H (0-234) ng/mlDDU POC Glucose 331 H (70-105) Troponin T 0.080 H (0.00-0.029) ng/mL Triglycerides 175 H (2-149) mg/dL HDL Cholesterol 20 L (40-59) mg/dL 05/19/17 05/19/17 05/19/17 Range/Units 00:52 05:53 11:53 D-Dimer (0-234) ng/mlDDU POC Glucose 431 H 292 H 201 H (70-105) Troponin T (0.00-0.029) ng/mL Triglycerides (2-149) mg/dL HDL Cholesterol (40-59) mg/dL
--- NOTE | 2017-05-19 13:43 | Progress Note ---
Assessment and Plan Impression: * End stage renal disease on HD * Encephalopathy * HIV * Hypertension * Anemia secondary to ESRD * Pancytopenia * Secondary hyperPTH Plan: * Continue dialysis on MWF schedule * UF as tolerated * Consultants' recommendations reviewed * Epogen TIW prn * Dose medications for renal function Subjective Date of service: 05/19/17 Principal diagnosis: AMS Objective - Vital Signs Vital signs: Vital Signs - 12hr 05/19/17 05/19/17 05/19/17 07:25 07:35 08:25 Temperature 97.5 F L Pulse Rate 108 H Pulse Rate [ 102 H 103 H Anterior Bilateral Throughout] Respiratory 18 Rate Respiratory 20 20 Rate [Anterior Bilateral Throughout] Blood Pressure 115/55 O2 Sat by Pulse 98 88 Oximetry 05/19/17 05/19/17 05/19/17 09:15 09:27 09:30 Temperature 97.5 F L Pulse Rate 103 H 102 H 100 H Pulse Rate [ Anterior Bilateral Throughout] Respiratory 22 Rate Respiratory Rate [Anterior Bilateral Throughout] Blood Pressure 121/26 106/46 120/54 O2 Sat by Pulse Oximetry 05/19/17 05/19/17 05/19/17 09:45 10:00 10:13 Temperature Pulse Rate 108 H 112 H 108 H Pulse Rate [ Anterior Bilateral Throughout] Respiratory Rate Respiratory Rate [Anterior Bilateral Throughout] Blood Pressure 96/46 81/31 103/45 O2 Sat by Pulse Oximetry 05/19/17 05/19/17 05/19/17 10:15 10:30 10:45 Temperature Pulse Rate 106 H 108 H 110 H Pulse Rate [ Anterior Bilateral Throughout] Respiratory Rate Respiratory Rate [Anterior Bilateral Throughout] Blood Pressure 93/45 88/36 79/36 O2 Sat by Pulse Oximetry 05/19/17 05/19/17 05/19/17 10:48 11:00 11:03 Temperature Pulse Rate 110 H 111 H 110 H Pulse Rate [ Anterior Bilateral Throughout] Respiratory Rate Respiratory Rate [Anterior Bilateral Throughout] Blood Pressure 80/37 62/27 77/36 O2 Sat by Pulse Oximetry 05/19/17 05/19/17 05/19/17 11:10 11:13 11:15 Temperature Pulse Rate 111 H 109 H 107 H Pulse Rate [ Anterior Bilateral Throughout] Respiratory Rate Respiratory Rate [Anterior Bilateral Throughout] Blood Pressure 74/55 97/44 85/40 O2 Sat by Pulse Oximetry 05/19/17 05/19/1718 11:25 11:30 11:45 Temperature Pulse Rate 109 H 106 H 107 H Pulse Rate [ Anterior Bilateral Throughout] Respiratory Rate Respiratory Rate [Anterior Bilateral Throughout] Blood Pressure 91/44 95/49 104/48 O2 Sat by Pulse Oximetry 05/19/17 05/19/17 05/19/17 12:00 12:16 12:30 Temperature Pulse Rate 110 H 105 H 104 H Pulse Rate [ Anterior Bilateral Throughout] Respiratory Rate Respiratory Rate [Anterior Bilateral Throughout] Blood Pressure 83/33 99/46 99/52 O2 Sat by Pulse Oximetry 05/19/17 05/19/17 05/19/17 12:46 13:00 13:29 Temperature Pulse Rate 104 H 104 H 102 H Pulse Rate [ Anterior Bilateral Throughout] Respiratory Rate Respiratory Rate [Anterior Bilateral Throughout] Blood Pressure 107/51 120/53 127/62 O2 Sat by Pulse Oximetry - General Appearance General appearance: well-developed, well-nourished EENT: ATNC Respiratory: Present: Clear to Ascultation Cardiology: regular, S1S2 Gastrointestinal: no tenderness, no distended Integumentary: no rash, warm and dry Neurologic: confused (but improving) Musculoskeletal: other (no edema) - Lab 05/18/17 04:00 05/18/17 04:00 Most recent lab results Calcium 9.8 mg/dL (8.4-10.2) 05/18/17 04:00 Phosphorus 2.20 mg/dL (2.5-4.5) L 05/18/17 04:00 Magnesium 2.00 mg/dL (1.7-2.3) 05/18/17 04:00
[2017-05-19] MEDS: REYATAZ PO SCH (15:30)
[2017-05-19] MEDS: NORVIR PO SCH (15:30)
--- NOTE | 2017-05-19 17:53 | Gastroenterology Progress Note ---
Assessment and Plan GI; awaiting repeat mBS - further rec as to peg or other interventions based on results - will follow Subjective Date of service: 05/19/17 Principal diagnosis: AMS Interval history: - no changes overnight Objective - Constitutional Vitals: Temp Pulse Resp BP Pulse Ox 98.9 F 106 H 18 75/30 99 05/19/17 16:42 05/19/17 16:42 05/19/17 16:42 05/19/17 16:42 05/19/17 16:42 General appearance: no acute distress - EENT Eyes: PERRL - Respiratory Respiratory: bilateral: CTA - Cardiovascular Rhythm: regular Heart Sounds: Present: S1 & S2 - Gastrointestinal General gastrointestinal: Present: soft, non-tender, non-distended - Labs CBC & Chem 7: 05/18/17 04:00 05/18/17 04:00 Labs: Laboratory Results - last 24 hr 05/18/17 05/18/17 05/19/17 19:42 19:44 00:52 D-Dimer 2866.46 H POC Glucose 431 H Troponin T 0.080 H Triglycerides 175 H Cholesterol 148 LDL Cholesterol Direct 93 HDL Cholesterol 20 L Cholesterol/HDL Ratio 7.40 05/19/17 05/19/17 05:53 11:53 D-Dimer POC Glucose 292 H 201 H Troponin T Triglycerides Cholesterol LDL Cholesterol Direct HDL Cholesterol Cholesterol/HDL Ratio
[2017-05-19] MEDS ORDERED: NACL 0.9% 500 ML 500 ML IV ONE (19:00)
[2017-05-20] MEDS: NOVOLOG SUB-Q SCH (00:01)
[2017-05-20] MEDS: ZOSYN/NS 2.25 GM/50ML 2.25 GM/50 ML BAG IV SCH ×3 (00:13→17:11)
[2017-05-20] MEDS: ATIVAN IV PRN (01:03)
[2017-05-20 06:51] LABS: Hematocrit 23.8 % (35.5-45.6); Mean Corpuscular HGB Conc 34 % (32-34); Mean Corpuscular Hemoglobin 32 pg (28-32); Mean Corpuscular Volume 96 fl (84-94); Platelet Count 183 K/mm3 (140-440); Red Blood Count 2.49 M/mm3 (3.65-5.03); Red Cell Distribution Width 14.8 % (13.2-15.2)
[2017-05-20 07:14] LABS: Calcium 9.5 mg/dL (8.4-10.2)
[2017-05-20] MEDS: PROVENTIL IH SCH ×3 (07:43→20:35)
[2017-05-20 08:03] LABS: Eosinophils % (Manual) 0 % (0.0-4.3); Total Cells Counted 100
[2017-05-20 08:04] LABS: Basophils % (Manual) 0 % (0.0-1.8); RBC Morphology Normal
--- NOTE | 2017-05-20 12:24 | Fluoroscopy Report ---
MODIFIED BARIUM SWALLOW History: dysphagia. Findings: Video radiography was provided by the radiologist for speech therapy to assess the swallowing mechanism. Impression: Successful modified barium swallow.
--- NOTE | 2017-05-20 12:37 | Progress Note ---
Assessment and Plan // hypotension following HD resolved with IV fluid // Toxic metabolic encephalopathy; patient is more alert and awake today Initial MRI; ?anoxic changes, MRA-negative, continue neuro checks Neurology and ID following // Pancytopenia; - secondary to underlying HIV AIDS, closely monitor // Dysphagia; s/p MBS today and will be placed on thin liquid diet will cont to follow and advance as tolerated Plan to get a barium swallow study tomorrow // Febrile illness ; afebrile more than 24 hours, likely from aspiration PNA //Aspiration pneumonia; continue Zosyn follow cultures. VQ scan negative for PE // HIV AIDS; management per ID, cont current meds //ESRD ; on hemodialysis per schedule,Nephrology following // psychosis ; slightly improved, consulted psych. // h/O rectal cancer diagnosed recently, had one dose of chemo on 05/07, will get records from Dr Pablo office Patient stated he will cont to f/u as outpt // DVT prophylaxis; Lovenox Restrain patient for safety as needed Disposition; per neurology and ID Brief history: Patient is a 57-year-old -Filipino male who is currently on maintenance hemodialysis on Nocturnal shift Wednesday, Wednesday, Wednesday, who has been admitted here with altered mental status off unclear etiology. Radiological test: head CT, brain MRI, Abdominal xrys VQ scan, neck CT Hospitalist Physical exam: General appearance: Present: no acute distress, well-nourished, other ( alert today ) - EENT Eyes: Present: PERRL, EOM intact, NG on place - Neck Neck: Present: supple, normal ROM - Respiratory Respiratory effort: normal Respiratory: bilateral: diminished, negative: rales, rhonchi, wheezing - Cardiovascular Rhythm: regular Heart Sounds: Present: S1 & S2 - Extremities Extremities: no ischemia, No edema - Abdominal General gastrointestinal: soft, non-tender, non-distended, normal bowel sounds - Integumentary Integumentary: Present: clear, warm - Psychiatric Psychiatric: not agitated - Neurologic Neurologic: moves all extremities Subjective Date of service: 05/20/17 Principal diagnosis: AMS Interval history: Patient seen and examined. Medical records and medication list reviewed. No acute event overnight noted by the RN. Patient Is more alert and oriented today s/p MBS and speech recommended to start on thin liquid diet Objective - Constitutional Vitals: Vital Signs - 12hr 05/20/17 05/20/17 05/20/17 00:46 07:28 07:44 Temperature 98.4 F 98.8 F Pulse Rate 95 H 96 H Pulse Rate [ 96 H Throughout] Respiratory 20 20 Rate Respiratory 20 Rate [ Throughout] Blood Pressure 114/53 140/66 O2 Sat by Pulse 96 97 Oximetry 05/20/17 05/20/17 05/20/17 07:54 10:00 11:00 Temperature Pulse Rate Pulse Rate [ 94 H Throughout] Respiratory 22 Rate Respiratory 20 Rate [ Throughout] Blood Pressure O2 Sat by Pulse 98 Oximetry - Labs CBC & Chem 7: 05/20/17 06:20 05/21/17 07:01 Labs: Abnormal lab results 05/20/17 05/20/17 05/20/17 Range/Units 00:02 06:20 06:20 WBC 12.4 H (4.5-11.0) K/mm3 RBC 2.49 L (3.65-5.03) M/mm3 Hgb 8.0 L (11.8-15.2) gm/dl Hct 23.8 L (35.5-45.6) % MCV 96 H (84-94) fl Seg Neuts % (Manual) 77.0 H (40.0-70.0) % Lymphocytes % (Manual) 8.0 L (13.4-35.0) % Monocytes % (Manual) 15.0 H (0.0-7.3) % Seg Neutrophils # Man 9.5 H (1.8-7.7) K/mm3 Lymphocytes # (Manual) 1.0 L (1.2-5.4) K/mm3 Monocytes # (Manual) 1.9 H (0.0-0.8) K/mm3 Chloride 92.3 L (98-107) mmol/L BUN 37 H (9-20) mg/dL Creatinine 5.5 H (0.8-1.5) mg/dL Glucose 257 H (75-100) mg/dL POC Glucose 244 H (70-105)
--- NOTE | 2017-05-20 15:03 | Progress Note ---
Assessment and Plan Impression: * End stage renal disease on HD * Encephalopathy * HIV * Hypertension * Anemia secondary to ESRD * Pancytopenia * Secondary hyperPTH Plan: * Continue dialysis on MWF schedule * UF as tolerated * Consultants' recommendations reviewed * Epogen TIW prn * Dose medications for renal function Subjective Date of service: 05/20/17 Principal diagnosis: AMS Interval history: Patient reports that he's "not doing too good" Reports difficulty swallowing Objective - Vital Signs Vital signs: Vital Signs - 12hr 05/20/17 05/20/17 05/20/17 07:28 07:44 07:54 Temperature 98.8 F Pulse Rate 96 H Pulse Rate [ Anterior Bilateral Throughout] Pulse Rate [ 96 H 94 H Throughout] Respiratory 20 Rate Respiratory Rate [Anterior Bilateral Throughout] Respiratory 20 20 Rate [ Throughout] Blood Pressure 140/66 O2 Sat by Pulse 97 Oximetry 05/20/17 05/20/17 05/20/17 10:00 11:00 13:58 Temperature Pulse Rate Pulse Rate [ Anterior Bilateral Throughout] Pulse Rate [ 77 Throughout] Respiratory 22 Rate Respiratory Rate [Anterior Bilateral Throughout] Respiratory 18 Rate [ Throughout] Blood Pressure O2 Sat by Pulse 98 Oximetry 05/20/17 14:10 Temperature Pulse Rate Pulse Rate [ 84 Anterior Bilateral Throughout] Pulse Rate [ 84 Throughout] Respiratory Rate Respiratory 18 Rate [Anterior Bilateral Throughout] Respiratory 18 Rate [ Throughout] Blood Pressure O2 Sat by Pulse Oximetry - General Appearance General appearance: well-developed, well-nourished EENT: ATNC Respiratory: Present: Clear to Ascultation Cardiology: regular, S1S2 Gastrointestinal: normal, no tenderness, no distended Integumentary: no rash, warm and dry Neurologic: other (mental status improving) Musculoskeletal: other (no edema) Psychiatric: cooperative - Lab 05/20/17 06:20 05/20/17 06:20 Most recent lab results Calcium 9.5 mg/dL (8.4-10.2) 05/20/17 06:20 Phosphorus 2.20 mg/dL (2.5-4.5) L 05/18/17 04:00 Magnesium 2.00 mg/dL (1.7-2.3) 05/18/17 04:00
--- NOTE | 2017-05-20 16:13 | Gastroenterology Progress Note ---
Assessment and Plan GI: speech mBS with recommendations noted - pt on pure diet - will order barium swallow as per recommendations - pt alert and said wouldn't want peg - no changes at this time, will follow for now Subjective Date of service: 05/20/17 Principal diagnosis: AMS Interval history: - no specific GI complaints overnight Objective - Constitutional Vitals: Temp Pulse Resp BP Pulse Ox 98.8 F 84 18 140/66 98 05/20/17 07:28 05/20/17 14:10 05/20/17 14:10 05/20/17 07:28 05/20/17 10:00 General appearance: no acute distress - EENT Eyes: PERRL - Respiratory Respiratory: bilateral: CTA - Cardiovascular Rhythm: regular Heart Sounds: Present: S1 & S2 - Gastrointestinal General gastrointestinal: Present: soft, non-tender, non-distended - Labs CBC & Chem 7: 05/20/17 06:20 05/20/17 06:20 Labs: Laboratory Results - last 24 hr 05/20/17 05/20/17 05/20/17 00:02 06:20 06:20 WBC 12.4 H RBC 2.49 L Hgb 8.0 L Hct 23.8 L MCV 96 H MCH 32 MCHC 34 RDW 14.8 Plt Count 183 Add Manual Diff Complete Total Counted 100 Seg Neuts % (Manual) 77.0 H Band Neutrophils % 0 Lymphocytes % (Manual) 8.0 L Reactive Lymphs % (Man) 0 Monocytes % (Manual) 15.0 H Eosinophils % (Manual) 0 Basophils % (Manual) 0 Metamyelocytes % 0 Myelocytes % 0 Promyelocytes % 0 Blast Cells % 0 Nucleated RBC % Not Reportable Seg Neutrophils # Man 9.5 H Band Neutrophils # 0.0 Lymphocytes # (Manual) 1.0 L Abs React Lymphs (Man) 0.0 Monocytes # (Manual) 1.9 H Eosinophils # (Manual) 0.0 Basophils # (Manual) 0.0 Metamyelocytes # 0.0 Myelocytes # 0.0 Promyelocytes # 0.0 Blast Cells # 0.0 WBC Morphology Not Reportable Hypersegmented Neuts Not Reportable Hyposegmented Neuts Not Reportable Hypogranular Neuts Not Reportable Smudge Cells Not Reportable Toxic Granulation Not Reportable Toxic Vacuolation Not Reportable Dohle Bodies Not Reportable Pelger-Huet Anomaly Not Reportable Christopher Rods Not Reportable Platelet Estimate Not Reportable Clumped Platelets Not Reportable Plt Clumps, EDTA Not Reportable Large Platelets Not Reportable Giant Platelets Not Reportable Platelet Satelliting Not Reportable Plt Morphology Comment Not Reportable RBC Morphology Normal Dimorphic RBCs Not Reportable Polychromasia Not Reportable Hypochromasia Not Reportable Poikilocytosis Not Reportable Anisocytosis Not Reportable Microcytosis Not Reportable Macrocytosis Not Reportable Spherocytes Not Reportable Pappenheimer Bodies Not Reportable Sickle Cells Not Reportable Target Cells Not Reportable Tear Drop Cells Not Reportable Ovalocytes Not Reportable Helmet Cells Not Reportable Martinez-Arnot Bodies Not Reportable [place] Rings Not Reportable [place] Cells Not Reportable Bite Cells Not Reportable Crenated Cell Not Reportable Elliptocytes Not Reportable Acanthocytes (Spur) Not Reportable Rouleaux Not Reportable Hemoglobin C Crystals Not Reportable Schistocytes Not Reportable Malaria parasites Not Reportable Joe Bodies Not Reportable Hem Pathologist Commnt No Sodium 137 Potassium 4.3 Chloride 92.3 L Carbon Dioxide 29 Anion Gap 20 BUN 37 H Creatinine 5.5 H Estimated GFR 13 BUN/Creatinine Ratio 7 Glucose 257 H POC Glucose 244 H Calcium 9.5
[2017-05-20] MEDS: HumaLOG SUB-Q SCH (17:13)
[2017-05-20] MEDS: NORVIR PO SCH (17:14)
[2017-05-20] MEDS: REYATAZ PO SCH (17:14)
[2017-05-20] MEDS ORDERED: HumaLOG SUB-Q ONE (18:00)
[2017-05-21] MEDS: ZOFRAN IV PRN (00:44)
[2017-05-21] MEDS: ZOSYN/NS 2.25 GM/50ML 2.25 GM/50 ML BAG IV SCH ×3 (00:44→17:51)
[2017-05-21] MEDS: HumaLOG SUB-Q SCH ×4 (01:15→18:19)
[2017-05-21] MEDS ORDERED: CATHFLO IV ONE (06:55)
[2017-05-21 07:37] LABS: Calcium 9.8 mg/dL (8.4-10.2)
[2017-05-21] MEDS: PROVENTIL IH SCH ×3 (08:42→19:43)
[2017-05-21] MEDS ORDERED: HumaLOG SUB-Q ONE (10:00)
[2017-05-21] MEDS ORDERED: NACL 0.9 (PRIMING MACHINE ONLY DIALYSIS) MC ONE (11:59)
--- NOTE | 2017-05-21 13:19 | Progress Note ---
Assessment and Plan Impression: * End stage renal disease on HD * Encephalopathy * Dysphagia * HIV * Hypertension * Anemia secondary to ESRD * Pancytopenia * Secondary hyperPTH Plan: * Continue dialysis on MWF schedule * UF as tolerated - will decrease goal to 1 liter as tolerated * Consultants' recommendations reviewed * Epogen TIW prn * Dose medications for renal function Subjective Date of service: 05/21/17 Principal diagnosis: AMS Interval history: Patient w/ symptomatic hypotension on dialysis today. Objective - Vital Signs Vital signs: Vital Signs - 12hr 05/21/17 05/21/17 05/21/17 04:13 04:21 07:38 Temperature 98.2 F 98.6 F Pulse Rate 76 90 Pulse Rate [ Anterior Bilateral Throughout] Respiratory 19 18 Rate Respiratory Rate [Anterior Bilateral Throughout] Blood Pressure 111/69 127/69 O2 Sat by Pulse 100 100 Oximetry 05/21/17 05/21/17 05/21/17 08:42 08:52 10:25 Temperature 98.6 F Pulse Rate 81 Pulse Rate [ 88 83 Anterior Bilateral Throughout] Respiratory 18 Rate Respiratory 20 20 Rate [Anterior Bilateral Throughout] Blood Pressure 128/59 O2 Sat by Pulse 100 Oximetry 05/21/17 05/21/17 05/21/17 10:30 10:45 11:00 Temperature Pulse Rate 81 86 93 H Pulse Rate [ Anterior Bilateral Throughout] Respiratory Rate Respiratory Rate [Anterior Bilateral Throughout] Blood Pressure 155/66 125/47 102/58 O2 Sat by Pulse Oximetry 05/21/17 05/21/17 05/21/17 11:15 11:30 11:45 Temperature Pulse Rate 92 H 92 H 95 H Pulse Rate [ Anterior Bilateral Throughout] Respiratory Rate Respiratory Rate [Anterior Bilateral Throughout] Blood Pressure 103/57 96/47 78/49 O2 Sat by Pulse Oximetry 05/21/17 05/21/17 12:00 12:15 Temperature Pulse Rate 93 H 94 H Pulse Rate [ Anterior Bilateral Throughout] Respiratory Rate Respiratory Rate [Anterior Bilateral Throughout] Blood Pressure 110/49 86/52 O2 Sat by Pulse Oximetry - Lab 05/20/17 06:20 05/21/17 07:01 Most recent lab results Calcium 9.8 mg/dL (8.4-10.2) 05/21/17 07:01 Phosphorus 2.20 mg/dL (2.5-4.5) L 05/18/17 04:00 Magnesium 2.00 mg/dL (1.7-2.3) 05/18/17 04:00
--- NOTE | 2017-05-21 15:59 | Gastroenterology Progress Note ---
Assessment and Plan GI: HIV presented w/ sepsis now improving, mBS with ?distal esophageal disorder - continue clear liquids as per Speech recommendations - awaiting Barium swallow - pt reports would not want PEG, consider based on progress - encourage po - further rec based on progress Subjective Date of service: 05/21/17 Principal diagnosis: AMS Interval history: - reports wants some grape juice. Denies GI complaints. Awaiting Barium swallow Objective - Constitutional Vitals: Temp Pulse Resp BP Pulse Ox 98.6 F 94 H 18 86/52 100 05/21/17 10:25 05/21/17 12:15 05/21/17 10:25 05/21/17 12:15 05/21/17 08:42 General appearance: no acute distress - EENT Eyes: PERRL - Respiratory Respiratory: bilateral: CTA - Cardiovascular Rhythm: regular Heart Sounds: Present: S1 & S2 - Gastrointestinal General gastrointestinal: Present: soft, non-tender, non-distended - Labs CBC & Chem 7: 05/20/17 06:20 05/21/17 07:01 Labs: Laboratory Results - last 24 hr 05/20/17 05/20/17 05/21/17 17:00 21:57 01:04 Sodium Potassium Chloride Carbon Dioxide Anion Gap BUN Creatinine Estimated GFR BUN/Creatinine Ratio Glucose POC Glucose 334 H 127 H 181 H Calcium 05/21/17 05/21/17 05:32 07:01 Sodium 138 Potassium 4.1 Chloride 92.1 L Carbon Dioxide 24 Anion Gap 26 BUN 58 H Creatinine 7.7 H Estimated GFR 9 BUN/Creatinine Ratio 8 Glucose 211 H POC Glucose 238 H Calcium 9.8
[2017-05-21] MEDS ORDERED: CATHFLO IV SCH (17:13)
[2017-05-21] MEDS: EMTRIVA PO SCH (17:32)
[2017-05-21] MEDS: NORVIR PO SCH (17:32)
[2017-05-21] MEDS: REYATAZ PO SCH (17:33)
--- NOTE | 2017-05-21 20:15 | Progress Note ---
Assessment and Plan /// Dysphagia; s/p MBS which showed esophageal dysmotility Speech recommended to continue on thin liquid diet will cont to follow and advance as tolerated Plan to get a barium swallow study, GI following / hypotensive episode following HD on 05/19 resolved with IV fluid // Toxic metabolic encephalopathy; patient is more alert and awake today Initial MRI; ?anoxic changes, MRA-negative, continue neuro checks Neurology and ID following // Pancytopenia; - secondary to underlying HIV AIDS, closely monitor // Febrile illness ; likely from aspiration PNA, now afebrile //Aspiration pneumonia; continue Zosyn follow cultures. VQ scan negative for PE // HIV AIDS; management per ID, cont current meds //ESRD ; on hemodialysis per schedule, Nephrology following // psychosis ; pt likely had delirium, resolved, consulted psych. // h/O rectal cancer diagnosed recently, had one dose of chemo on 05/[address] Pablo office Patient stated he will cont to f/u as outpt // DVT prophylaxis; Lovenox Restrain patient for safety as needed Disposition; per neurology and ID Brief history: Patient is a 57-year-old -L[place]anese male who is currently on maintenance hemodialysis on Nocturnal shift Wednesday, Wednesday, Wednesday, who has been admitted here with altered mental status off unclear etiology. Radiological test: head CT, brain MRI, Abdominal xrys VQ scan, neck CT Modified barium swallow study Hospitalist Physical exam: General appearance: Present: no acute distress, well-nourished, other ( alert today ) - EENT Eyes: Present: PERRL, EOM intact, NG on place - Neck Neck: Present: supple, normal ROM - Respiratory Respiratory effort: normal Respiratory: bilateral: diminished, negative: rales, rhonchi, wheezing - Cardiovascular Rhythm: regular Heart Sounds: Present: S1 & S2 - Extremities Extremities: no ischemia, No edema - Abdominal General gastrointestinal: soft, non-tender, non-distended, normal bowel sounds - Integumentary Integumentary: Present: clear, warm - Psychiatric Psychiatric: not agitated - Neurologic Neurologic: moves all extremities Subjective Date of service: 05/21/17 Principal diagnosis: AMS Interval history: Patient seen and examined. Medical records and medication list reviewed. No acute event overnight noted by the RN. Patient Is more alert and oriented today s/p HD, barium swallow study pending Does not want any PEG tube Objective - Constitutional Vitals: Vital Signs - 12hr 05/21/17 05/21/17 05/21/17 08:42 08:52 10:25 Temperature 98.6 F Pulse Rate 81 Pulse Rate [ 88 83 Anterior Bilateral Throughout] Respiratory 18 Rate Respiratory 20 20 Rate [Anterior Bilateral Throughout] Blood Pressure 128/59 O2 Sat by Pulse 100 Oximetry 05/21/17 05/21/17 05/21/17 10:30 10:45 11:00 Temperature Pulse Rate 81 86 93 H Pulse Rate [ Anterior Bilateral Throughout] Respiratory Rate Respiratory Rate [Anterior Bilateral Throughout] Blood Pressure 155/66 125/47 102/58 O2 Sat by Pulse Oximetry 05/21/17 05/21/17 05/21/17 11:15 11:30 11:45 Temperature Pulse Rate 92 H 92 H 95 H Pulse Rate [ Anterior Bilateral Throughout] Respiratory Rate Respiratory Rate [Anterior Bilateral Throughout] Blood Pressure 103/57 96/47 78/49 O2 Sat by Pulse Oximetry 05/21/17 05/21/17 05/21/17 12:00 12:15 12:30 Temperature Pulse Rate 93 H 94 H 97 H Pulse Rate [ Anterior Bilateral Throughout] Respiratory Rate Respiratory Rate [Anterior Bilateral Throughout] Blood Pressure 110/49 86/52 101/50 O2 Sat by Pulse Oximetry 05/21/17 05/21/17 05/21/17 12:45 13:00 13:15 Temperature Pulse Rate 97 H 94 H 92 H Pulse Rate [ Anterior Bilateral Throughout] Respiratory Rate Respiratory Rate [Anterior Bilateral Throughout] Blood Pressure 88/39 93/53 96/50 O2 Sat by Pulse Oximetry 05/21/17 05/21/17 05/21/17 13:40 14:00 15:44 Temperature 98.4 F 99.2 F Pulse Rate 90 94 H Pulse Rate [ Anterior Bilateral Throughout] Respiratory 18 22 Rate Respiratory Rate [Anterior Bilateral Throughout] Blood Pressure 94/48 99/62 121/59 O2 Sat by Pulse Oximetry 05/21/17 15:45 Temperature 99.2 F Pulse Rate 92 H Pulse Rate [ Anterior Bilateral Throughout] Respiratory 22 Rate Respiratory Rate [Anterior Bilateral Throughout] Blood Pressure O2 Sat by Pulse 93 Oximetry - Labs CBC & Chem 7: 05/20/17 06:20 05/21/17 07:01 Labs: Abnormal lab results 05/20/17 05/21/17 05/21/17 Range/Units 21:57 01:04 05:32 Chloride (98-107) mmol/L BUN (9-20) mg/dL Creatinine (0.8-1.5) mg/dL Glucose (75-100) mg/dL POC Glucose 127 H 181 H 238 H (70-105) 05/21/17 05/21/17 Range/Units 07:01 16:17 Chloride 92.1 L (98-107) mmol/L BUN 58 H (9-20) mg/dL Creatinine 7.7 H (0.8-1.5) mg/dL Glucose 211 H (75-100) mg/dL POC Glucose 173 H (70-105)
[2017-05-22] MEDS: ZOSYN/NS 2.25 GM/50ML 2.25 GM/50 ML BAG IV SCH ×2 (00:59→13:35)
[2017-05-22] MEDS: ATIVAN IV PRN (00:59)
[2017-05-22] MEDS: HumaLOG SUB-Q SCH ×4 (01:19→17:19)
[2017-05-22] MEDS: PROVENTIL IH SCH ×3 (08:55→19:40)
--- NOTE | 2017-05-22 09:14 | Progress Note ---
Subjective Principal diagnosis: AMS Interval history: Patient was seen today for follow-up on multiple renal related issues Events of this hospitalization noted from encephalopathy perspective is doing much better alert awake Does not recall my name which he normally does easily Patient denies having any chest pain pressure or shortness of breath Vitals labs intake output medications were reviewed Social history: Reviewed Allergies: Reviewed Family history: Reviewed Physical examination HEENT: Oral mucosa moist no pallor or icterus Neck: Supple no JVD Chest: Clear to auscultation anteriorly CVS: Regular rate and rhythm S1 and S2 heard Abdomen: Soft nontender no suprapubic masses no organomegaly appreciable Extremity: Dry skin less than 1+ peripheral edema Musculoskeletal: No joint effusion noted in knees and ankle Neurological: Alert awake Dermatology: No petechial rashes Psychiatry: No evidence of any agitation and aggression noted Assessment and plan End-stage renal disease: Patient is currently on maintenance hemodialysis we'll continue with that, ultrafiltration only as tolerated not to drop the blood pressure below 110 and not to increase heart rate above 100 Multi-factorial encephalopathy: Currently improving followed by primary team status post neurology evaluation HIV disease currently on anti-retroviral therapy Last hemoglobin 8 potassium 4.1 phosphorus under 3 Patient will need follow-up labs Prognosis guarded,at this time Patient was adequately counseled and educated regarding multiple renal related issues We'll continue to follow and make recommendation from renal standpoint Objective - Vital Signs Vital signs: Vital Signs - 12hr 05/22/17 07:15 Temperature 97.8 F Pulse Rate 80 Respiratory 16 Rate Blood Pressure 102/51 O2 Sat by Pulse 97 Oximetry - Lab 05/22/17 13:27 05/22/17 13:27 Most recent lab results Calcium 9.8 mg/dL (8.4-10.2) 05/21/17 07:01 Phosphorus 2.20 mg/dL (2.5-4.5) L 05/18/17 04:00 Magnesium 2.00 mg/dL (1.7-2.3) 05/18/17 04:00
[2017-05-22] MEDS ORDERED: HumaLOG SUB-Q ONE ×3 (10:00)
--- NOTE | 2017-05-22 11:04 | Progress Note ---
Assessment and Plan /// Dysphagia; s/p MBS which showed esophageal dysmotility Speech recommended to continue on clear liquid diet s/p barium swallow study today showed no obstruction advance diet as tolerated add PPI / hypotensive episode following HD on 05/19 resolved with IV fluid // Toxic metabolic encephalopathy; patient is more alert and awake today Initial MRI; ?anoxic changes, MRA-negative, continue neuro checks Neurology and ID following // Pancytopenia; - secondary to underlying HIV AIDS, closely monitor // Febrile illness ; likely from aspiration PNA, now afebrile //Aspiration pneumonia; continue Zosyn follow cultures. VQ scan negative for PE // HIV AIDS; management per ID, cont current meds //ESRD ; on hemodialysis per schedule, Nephrology following // psychosis ; pt likely had delirium, resolved, consulted psych. // h/O rectal cancer diagnosed recently, had one dose of chemo on 05/[address] Pablo office Patient stated he will cont to f/u as outpt // DVT prophylaxis; Lovenox Disposition; plan to d/c to SNF Brief history: Patient is a 57-year-old -Thai male who is currently on maintenance hemodialysis on Nocturnal shift Wednesday, Wednesday, Wednesday, who has been admitted here with altered mental status off unclear etiology. Radiological test: head CT, brain MRI, Abdominal xrys VQ scan, neck CT Modified barium swallow study Hospitalist Physical exam: General appearance: Present: no acute distress, well-nourished, other ( alert today ) - EENT Eyes: Present: PERRL, EOM intact, NG on place - Neck Neck: Present: supple, normal ROM - Respiratory Respiratory effort: normal Respiratory: bilateral: diminished, negative: rales, rhonchi, wheezing - Cardiovascular Rhythm: regular Heart Sounds: Present: S1 & S2 - Extremities Extremities: no ischemia, No edema - Abdominal General gastrointestinal: soft, non-tender, non-distended, normal bowel sounds - Integumentary Integumentary: Present: clear, warm - Psychiatric Psychiatric: not agitated - Neurologic Neurologic: moves all extremities Subjective Date of service: 05/22/17 Principal diagnosis: AMS Interval history: Patient seen and examined. Medical records and medication list reviewed. No acute event overnight noted by the RN. s/p barium swallow study today started on renal diet by GI, c/o heart burn Objective - Constitutional Vitals: Vital Signs - 12hr 05/22/17 07:15 Temperature 97.8 F Pulse Rate 80 Respiratory 16 Rate Blood Pressure 102/51 O2 Sat by Pulse 97 Oximetry - Labs CBC & Chem 7: 05/22/17 13:27 05/22/17 13:27 Labs: Abnormal lab results 05/21/17 05/22/17 Range/Units 16:17 01:10 POC Glucose 173 H 288 H (70-105)
--- NOTE | 2017-05-22 12:05 | Fluoroscopy Report ---
ESOPHAGRAM History: Dysphagia Findings: 31 fluoroscopic images captured during this exam. The esophagus is normal caliber and mucosal pattern throughout. No evidence for stricture, mass, ring or web. A small sliding hiatal hernia was witnessed during this exam. No reflux was seen. Decreased esophageal motility is suspected throughout this exam with poor clearance of the contrast agent from the esophagus. Impression: Esophageal dysmotility. Small sliding hiatal hernia.
[2017-05-22 14:04] LABS: Hematocrit 22.7 % (35.5-45.6); Hemoglobin 7.6 gm/dl (11.8-15.2); Mean Corpuscular HGB Conc 33 % (32-34); Mean Corpuscular Hemoglobin 32 pg (28-32); Mean Corpuscular Volume 96 fl (84-94); Platelet Count 262 K/mm3 (140-440); Red Blood Count 2.35 M/mm3 (3.65-5.03); Red Cell Distribution Width 14.6 % (13.2-15.2)
[2017-05-22 14:17] LABS: Calcium 9.5 mg/dL (8.4-10.2)
[2017-05-22] MEDS: NORVIR PO SCH (14:51)
[2017-05-22 14:57] LABS: Anisocytosis 1+; Band Neutrophils # (Manual) 0.1 K/mm3; Basophils % (Manual) 0 % (0.0-1.8); Total Cells Counted 100
[2017-05-22 14:58] LABS: Hypochromasia Few; Stomatocytes Few
--- NOTE | 2017-05-22 15:39 | Gastroenterology Progress Note ---
Assessment and Plan - Patient Problems (1) Esophageal dysmotility Current Visit: Yes Status: Acute Plan to address problem: - Ba Sw without signs of obstruction or significant delay. - Does have underlying neurologic condition (see notes) that may impede ability to advance diet, but no mechanical reason at present to delay feeding. - Will advance to Renal diet and observe as encephalopathy appears resolved. - Encouraged patient to sit up while eating, and follow ST recs. - If recurrent aspiration develops, patient may require enteral feeding device ( G v J tube) in the future. Subjective Date of service: 05/22/17 Principal diagnosis: Dysphagia Interval history: Patient's affect is bright, and he is ready to try solid food. No N/V/ abdominal pain. Explained barium swallow results to him (essentially dysmotility without signs of obstruction). No melena, chest pain, SOB. Objective - Constitutional Vitals: Temp Pulse Resp BP Pulse Ox 97.6 F 80 16 98/49 96 05/22/17 15:25 05/22/17 15:25 05/22/17 15:25 05/22/17 15:25 05/22/17 15:25 General appearance: no acute distress - EENT Eyes: PERRL, EOM intact - Respiratory Respiratory effort: normal Respiratory: bilateral: CTA - Cardiovascular Rhythm: regular Heart Sounds: Present: S1 & S2 - Gastrointestinal General gastrointestinal: Present: soft, non-tender, non-distended - Labs CBC & Chem 7: 05/22/17 13:27 05/22/17 13:27 Labs: Laboratory Results - last 24 hr 05/21/17 05/22/17 05/22/17 16:17 01:10 13:17 WBC RBC Hgb Hct MCV MCH MCHC RDW Plt Count Add Manual Diff Total Counted Seg Neuts % (Manual) Band Neutrophils % Lymphocytes % (Manual) Reactive Lymphs % (Man) Monocytes % (Manual) Eosinophils % (Manual) Basophils % (Manual) Metamyelocytes % Myelocytes % Promyelocytes % Blast Cells % Nucleated RBC % Seg Neutrophils # Man Band Neutrophils # Lymphocytes # (Manual) Abs React Lymphs (Man) Monocytes # (Manual) Eosinophils # (Manual) Basophils # (Manual) Metamyelocytes # Myelocytes # Promyelocytes # Blast Cells # WBC Morphology Hypersegmented Neuts Hyposegmented Neuts Hypogranular Neuts Smudge Cells Toxic Granulation Toxic Vacuolation Dohle Bodies Pelger-Huet Anomaly Christopher Rods Platelet Estimate Clumped Platelets Plt Clumps, EDTA Large Platelets Giant Platelets Platelet Satelliting Plt Morphology Comment RBC Morphology Dimorphic RBCs Polychromasia Hypochromasia Poikilocytosis Anisocytosis Microcytosis Macrocytosis Spherocytes Pappenheimer Bodies Sickle Cells Target Cells Tear Drop Cells Ovalocytes Stomatocytes Helmet Cells Martinez-Wedron Bodies [place] Rings Filemon Cells Bite Cells Crenated Cell Elliptocytes Acanthocytes (Spur) Rouleaux Hemoglobin C Crystals Schistocytes Malaria parasites Joe Bodies Hem Pathologist Commnt Sodium Potassium Chloride Carbon Dioxide Anion Gap BUN Creatinine Estimated GFR BUN/Creatinine Ratio Glucose POC Glucose 173 H 288 H 218 H Calcium Phosphorus Total Bilirubin AST ALT Alkaline Phosphatase Total Protein Albumin Albumin/Globulin Ratio PTH Intact 05/22/17 05/22/17 05/22/17 13:27 13:27 13:27 WBC 6.0 RBC 2.35 L Hgb 7.6 L Hct 22.7 L MCV 96 H MCH 32 MCHC 33 RDW 14.6 Plt Count 262 Add Manual Diff Complete Total Counted 100 Seg Neuts % (Manual) 70.0 Band Neutrophils % 1.0 Lymphocytes % (Manual) 13.0 L Reactive Lymphs % (Man) 0 Monocytes % (Manual) 7.0 Eosinophils % (Manual) 7.0 H Basophils % (Manual) 0 Metamyelocytes % 2.0 Myelocytes % 0 Promyelocytes % 0 Blast Cells % 0 Nucleated RBC % Not Reportable Seg Neutrophils # Man 4.2 Band Neutrophils # 0.1 Lymphocytes # (Manual) 0.8 L Abs React Lymphs (Man) 0.0 Monocytes # (Manual) 0.4 Eosinophils # (Manual) 0.4 Basophils # (Manual) 0.0 Metamyelocytes # 0.1 Myelocytes # 0.0 Promyelocytes # 0.0 Blast Cells # 0.0 WBC Morphology Not Reportable Hypersegmented Neuts Not Reportable Hyposegmented Neuts Not Reportable Hypogranular Neuts Not Reportable Smudge Cells Not Reportable Toxic Granulation Not Reportable Toxic Vacuolation Not Reportable Dohle Bodies Not Reportable Pelger-Huet Anomaly Not Reportable Christopher Rods Not Reportable Platelet Estimate Appears normal Clumped Platelets Not Reportable Plt Clumps, EDTA Not Reportable Large Platelets Not Reportable Giant Platelets Not Reportable Platelet Satelliting Not Reportable Plt Morphology Comment Not Reportable RBC Morphology Not Reportable Dimorphic RBCs Not Reportable Polychromasia Not Reportable Hypochromasia Few Poikilocytosis Not Reportable Anisocytosis 1+ Microcytosis Not Reportable Macrocytosis Not Reportable Spherocytes Not Reportable Pappenheimer Bodies Not Reportable Sickle Cells Not Reportable Target Cells Not Reportable Tear Drop Cells Not Reportable Ovalocytes Not Reportable Stomatocytes Few Helmet Cells Not Reportable Martinez-Wedron Bodies Not Reportable [place] Rings Not Reportable [place] Cells Not Reportable Bite Cells Not Reportable Crenated Cell Not Reportable Elliptocytes Not Reportable Acanthocytes (Spur) Not Reportable Rouleaux Not Reportable Hemoglobin C Crystals Not Reportable Schistocytes Not Reportable Malaria parasites Not Reportable Joe Bodies Not Reportable Hem Pathologist Commnt No Sodium 135 L Potassium 3.6 Chloride 89.7 L Carbon Dioxide 27 Anion Gap 22 BUN 36 H Creatinine 6.4 H Estimated GFR 11 BUN/Creatinine Ratio 6 Glucose 199 H POC Glucose Calcium 9.5 Phosphorus 2.80 Total Bilirubin 1.60 H AST 15 ALT 11 Alkaline Phosphatase 57 Total Protein 6.9 Albumin 3.0 L Albumin/Globulin Ratio 0.8 PTH Intact 105.7 H
[2017-05-22] MEDS: REYATAZ PO SCH (17:12)
[2017-05-22] MEDS: ALUM-MAG HYDROX-SIMETH 200-200-20MG/5ML PO PRN (18:46)
[2017-05-22] MEDS ORDERED: NACL 0.9% 250ML 250 ML IV ONE (19:10)
[2017-05-22] MEDS ORDERED: PROTONIX IV SCH (20:00)
[2017-05-22] MEDS: PEPCID IV SCH (21:14)
[2017-05-23] MEDS: HumaLOG SUB-Q SCH ×5 (01:07→23:09)
[2017-05-23] MEDS: ATIVAN IV PRN ×2 (01:36→23:07)
[2017-05-23] MEDS: ALUM-MAG HYDROX-SIMETH 200-200-20MG/5ML PO PRN ×2 (08:30→15:48)
[2017-05-23] MEDS: PROVENTIL IH SCH ×3 (09:00→21:33)
--- NOTE | 2017-05-23 09:04 | Progress Note ---
Assessment and Plan /// Dysphagia- Esophageal dysmotility s/p MBS which showed esophageal dysmotility Speech recommended to continue on clear liquid diet GI consulted and recommended barium swallow study s/p barium swallow study on 05/22 showed no obstruction advance diet as tolerated per GI cont PPI / hypotensive episode following HD on 05/19 resolved with IV fluid // Toxic metabolic encephalopathy; resolved patient is more alert and awake now Initial MRI; ?anoxic changes, MRA-negative, continue neuro checks Neurology and ID following // Pancytopenia; - secondary to underlying HIV AIDS, closely monitor // Febrile illness ; likely from aspiration PNA, now afebrile //Aspiration pneumonia; treated with Zosyn. VQ scan negative for PE // HIV AIDS; management per ID, cont current meds //ESRD ; on hemodialysis per schedule, Nephrology following // psychosis ; pt likely had delirium, resolved, consulted psych. // h/O rectal cancer diagnosed recently, had one dose of chemo on 05/[address] Pablo office Patient stated he will cont to f/u as outpt // DVT prophylaxis; Lovenox Disposition; plan to d/c to SNF Brief history: Patient is a 57-year-old -[place] male who is currently on maintenance hemodialysis on Nocturnal shift Wednesday, Wednesday, Wednesday, who has been admitted here with altered mental status off unclear etiology. Radiological test: head CT, brain MRI, Abdominal xrys VQ scan, neck CT Modified barium swallow study barium study Hospitalist Physical exam: General appearance: Present: no acute distress, well-nourished, other ( alert today ) - EENT Eyes: Present: PERRL, EOM intact, NG on place - Neck Neck: Present: supple, normal ROM - Respiratory Respiratory effort: normal Respiratory: bilateral: diminished, negative: rales, rhonchi, wheezing - Cardiovascular Rhythm: regular Heart Sounds: Present: S1 & S2 - Extremities Extremities: no ischemia, No edema - Abdominal General gastrointestinal: soft, non-tender, non-distended, normal bowel sounds - Integumentary Integumentary: Present: clear, warm - Psychiatric Psychiatric: not agitated - Neurologic Neurologic: moves all extremities Subjective Date of service: 05/23/17 Principal diagnosis: AMS Interval history: Patient seen and examined. Medical records and medication list reviewed. No acute event overnight noted by the RN. started on renal diet by GI, continue to c/o heart burn Objective - Constitutional Vitals: Vital Signs - 12hr 05/22/17 05/23/17 05/23/17 20:25 00:33 05:44 Temperature 97.7 F 98.8 F 98.6 F Pulse Rate 83 86 78 Respiratory 16 16 16 Rate Blood Pressure 90/42 90/55 Blood Pressure 95/66 [Right] O2 Sat by Pulse 99 93 98 Oximetry 05/23/17 07:54 Temperature 98.4 F Pulse Rate 83 Respiratory 18 Rate Blood Pressure 128/70 Blood Pressure [Right] O2 Sat by Pulse 97 Oximetry - Labs CBC & Chem 7: 05/22/17 13:27 05/22/17 13:27 Labs: Abnormal lab results 05/22/17 05/22/17 05/22/17 Range/Units 13:17 13:27 13:27 RBC 2.35 L (3.65-5.03) M/mm3 Hgb 7.6 L (11.8-15.2) gm/dl Hct 22.7 L (35.5-45.6) % MCV 96 H (84-94) fl Lymphocytes % (Manual) 13.0 L (13.4-35.0) % Eosinophils % (Manual) 7.0 H (0.0-4.3) % Lymphocytes # (Manual) 0.8 L (1.2-5.4) K/mm3 Sodium 135 L (137-145) mmol/L Chloride 89.7 L (98-107) mmol/L BUN 36 H (9-20) mg/dL Creatinine 6.4 H (0.8-1.5) mg/dL Glucose 199 H (75-100) mg/dL POC Glucose 218 H (70-105) Total Bilirubin 1.60 H (0.1-1.2) mg/dL Troponin T (0.00-0.029) ng/mL Albumin 3.0 L (3.9-5) g/dL PTH Intact (15-65) pg/mL 05/22/17 05/22/17 05/23/17 Range/Units 13:27 16:22 01:10 RBC (3.65-5.03) M/mm3 Hgb (11.8-15.2) gm/dl Hct (35.5-45.6) % MCV (84-94) fl Lymphocytes % (Manual) (13.4-35.0) % Eosinophils % (Manual) (0.0-4.3) % Lymphocytes # (Manual) (1.2-5.4) K/mm3 Sodium (137-145) mmol/L Chloride (98-107) mmol/L BUN (9-20) mg/dL Creatinine (0.8-1.5) mg/dL Glucose (75-100) mg/dL POC Glucose 203 H (70-105) Total Bilirubin (0.1-1.2) mg/dL Troponin T 0.075 H (0.00-0.029) ng/mL Albumin (3.9-5) g/dL PTH Intact 105.7 H (15-65) pg/mL 05/23/17 Range/Units 07:16 RBC (3.65-5.03) M/mm3 Hgb (11.8-15.2) gm/dl Hct (35.5-45.6) % MCV (84-94) fl Lymphocytes % (Manual) (13.4-35.0) % Eosinophils % (Manual) (0.0-4.3) % Lymphocytes # (Manual) (1.2-5.4) K/mm3 Sodium (137-145) mmol/L Chloride (98-107) mmol/L BUN (9-20) mg/dL Creatinine (0.8-1.5) mg/dL Glucose (75-100) mg/dL POC Glucose 131 H (70-105) Total Bilirubin (0.1-1.2) mg/dL Troponin T (0.00-0.029) ng/mL Albumin (3.9-5) g/dL PTH Intact (15-65) pg/mL
--- NOTE | 2017-05-23 09:55 | Progress Note ---
Subjective Principal diagnosis: AMS Interval history: Patient was seen today for follow-up on multiple renal related issues Encephalopathy improving slowly Patient denies having any chest pain pressure or shortness of breath Vitals labs intake output medications were reviewed Social history: Reviewed Allergies: Reviewed Family history: Reviewed Physical examination HEENT: Oral mucosa moist no pallor or icterus Neck: Supple no JVD Chest: Clear to auscultation anteriorly CVS: Regular rate and rhythm S1 and S2 heard Abdomen: Soft nontender no suprapubic masses no organomegaly appreciable Extremity: Dry skin less than 1+ peripheral edema Musculoskeletal: No joint effusion noted in knees and ankle Neurological: Alert awake Dermatology: No petechial rashes Psychiatry: No evidence of any agitation and aggression noted Assessment and plan End-stage renal disease: Continue with hemodialysis 3 times per week ultrafiltration only as tolerated adjust the goal to keep him hemodynamically stable Multi-factorial encephalopathy: Currently improving followed by primary team status post neurology evaluation HIV disease currently on anti-retroviral therapy Continue to monitor dialysis related labs Patient was adequately counseled and educated regarding multiple renal related issues We'll continue to follow and make recommendation from renal standpoint Objective - Vital Signs Vital signs: Vital Signs - 12hr 05/23/17 05/23/17 05/23/17 00:33 05:44 07:54 Temperature 98.8 F 98.6 F 98.4 F Pulse Rate 86 78 83 Pulse Rate [ Anterior Bilateral Throughout] Respiratory 16 16 18 Rate Respiratory Rate [Anterior Bilateral Throughout] Blood Pressure 90/55 128/70 Blood Pressure 95/66 [Right] O2 Sat by Pulse 93 98 97 Oximetry 05/23/17 05/23/17 09:00 09:10 Temperature Pulse Rate Pulse Rate [ 87 89 Anterior Bilateral Throughout] Respiratory Rate Respiratory 20 20 Rate [Anterior Bilateral Throughout] Blood Pressure Blood Pressure [Right] O2 Sat by Pulse 97 Oximetry - Lab 05/22/17 13:27 05/22/17 13:27 Most recent lab results Calcium 9.5 mg/dL (8.4-10.2) 05/22/17 13:27 Phosphorus 2.80 mg/dL (2.5-4.5) 05/22/17 13:27 Magnesium 2.00 mg/dL (1.7-2.3) 05/18/17 04:00
[2017-05-23] MEDS ORDERED: HumaLOG SUB-Q ONE ×4 (10:00)
--- NOTE | 2017-05-23 11:48 | Gastroenterology Progress Note ---
Assessment and Plan - Patient Problems (1) Esophageal dysmotility Current Visit: Yes Status: Acute Plan to address problem: - Ba Sw without signs of obstruction or significant delay, only dysmotility. - Does have underlying neurologic condition (see notes) that may impede ability to advance diet, but no mechanical reason at present to delay feeding. - Will continue Renal diet as no signs of aspiration/difficulty swallowing. - Encouraged patient to sit up while eating, and follow ST recs. - If recurrent aspiration develops, patient may require enteral feeding device ( G v J tube) in the future. - For now, will sign off; please call if needed. Subjective Date of service: 05/23/17 Principal diagnosis: Dysphagia Interval history: The patient tolerated advancement to a renal diet without N/V/abdominal pain. No witnessed choking or coughing with eating. Objective - Constitutional Vitals: Temp Pulse Resp BP Pulse Ox 98.4 F 89 20 128/70 97 05/23/17 07:54 05/23/17 09:10 05/23/17 09:10 05/23/17 07:54 05/23/17 09:00 General appearance: no acute distress - Respiratory Respiratory effort: normal Respiratory: bilateral: CTA - Cardiovascular Rhythm: regular Heart Sounds: Present: S1 & S2 - Gastrointestinal General gastrointestinal: Present: soft, non-tender, non-distended - Labs CBC & Chem 7: 05/22/17 13:27 05/22/17 13:27 Labs: Laboratory Results - last 24 hr 05/22/17 05/22/17 05/22/17 13:17 13:27 13:27 WBC 6.0 RBC 2.35 L Hgb 7.6 L Hct 22.7 L MCV 96 H MCH 32 MCHC 33 RDW 14.6 Plt Count 262 Add Manual Diff Complete Total Counted 100 Seg Neuts % (Manual) 70.0 Band Neutrophils % 1.0 Lymphocytes % (Manual) 13.0 L Reactive Lymphs % (Man) 0 Monocytes % (Manual) 7.0 Eosinophils % (Manual) 7.0 H Basophils % (Manual) 0 Metamyelocytes % 2.0 Myelocytes % 0 Promyelocytes % 0 Blast Cells % 0 Nucleated RBC % Not Reportable Seg Neutrophils # Man 4.2 Band Neutrophils # 0.1 Lymphocytes # (Manual) 0.8 L Abs React Lymphs (Man) 0.0 Monocytes # (Manual) 0.4 Eosinophils # (Manual) 0.4 Basophils # (Manual) 0.0 Metamyelocytes # 0.1 Myelocytes # 0.0 Promyelocytes # 0.0 Blast Cells # 0.0 WBC Morphology Not Reportable Hypersegmented Neuts Not Reportable Hyposegmented Neuts Not Reportable Hypogranular Neuts Not Reportable Smudge Cells Not Reportable Toxic Granulation Not Reportable Toxic Vacuolation Not Reportable Dohle Bodies Not Reportable Pelger-Huet Anomaly Not Reportable Christopher Rods Not Reportable Platelet Estimate Appears normal Clumped Platelets Not Reportable Plt Clumps, EDTA Not Reportable Large Platelets Not Reportable Giant Platelets Not Reportable Platelet Satelliting Not Reportable Plt Morphology Comment Not Reportable RBC Morphology Not Reportable Dimorphic RBCs Not Reportable Polychromasia Not Reportable Hypochromasia Few Poikilocytosis Not Reportable Anisocytosis 1+ Microcytosis Not Reportable Macrocytosis Not Reportable Spherocytes Not Reportable Pappenheimer Bodies Not Reportable Sickle Cells Not Reportable Target Cells Not Reportable Tear Drop Cells Not Reportable Ovalocytes Not Reportable Stomatocytes Few Helmet Cells Not Reportable [place] Bodies Not Reportable [place] Rings Not Reportable [place] Cells Not Reportable Bite Cells Not Reportable Crenated Cell Not Reportable Elliptocytes Not Reportable Acanthocytes (Spur) Not Reportable Rouleaux Not Reportable Hemoglobin C Crystals Not Reportable Schistocytes Not Reportable Malaria parasites Not Reportable Joe Bodies Not Reportable Hem Pathologist Commnt No Sodium 135 L Potassium 3.6 Chloride 89.7 L Carbon Dioxide 27 Anion Gap 22 BUN 36 H Creatinine 6.4 H Estimated GFR 11 BUN/Creatinine Ratio 6 Glucose 199 H POC Glucose 218 H Calcium 9.5 Phosphorus 2.80 Total Bilirubin 1.60 H AST 15 ALT 11 Alkaline Phosphatase 57 Troponin T Total Protein 6.9 Albumin 3.0 L Albumin/Globulin Ratio 0.8 PTH Intact 05/22/17 05/22/17 05/23/17 13:27 16:22 01:10 WBC RBC Hgb Hct MCV MCH MCHC RDW Plt Count Add Manual Diff Total Counted Seg Neuts % (Manual) Band Neutrophils % Lymphocytes % (Manual) Reactive Lymphs % (Man) Monocytes % (Manual) Eosinophils % (Manual) Basophils % (Manual) Metamyelocytes % Myelocytes % Promyelocytes % Blast Cells % Nucleated RBC % Seg Neutrophils # Man Band Neutrophils # Lymphocytes # (Manual) Abs React Lymphs (Man) Monocytes # (Manual) Eosinophils # (Manual) Basophils # (Manual) Metamyelocytes # Myelocytes # Promyelocytes # Blast Cells # WBC Morphology Hypersegmented Neuts Hyposegmented Neuts Hypogranular Neuts Smudge Cells Toxic Granulation Toxic Vacuolation Dohle Bodies Pelger-Huet Anomaly Christopher Rods Platelet Estimate Clumped Platelets Plt Clumps, EDTA Large Platelets Giant Platelets Platelet Satelliting Plt Morphology Comment RBC Morphology Dimorphic RBCs Polychromasia Hypochromasia Poikilocytosis Anisocytosis Microcytosis Macrocytosis Spherocytes Pappenheimer Bodies Sickle Cells Target Cells Tear Drop Cells Ovalocytes Stomatocytes Helmet Cells [place] Bodies [place] Rings [place] Cells Bite Cells Crenated Cell Elliptocytes Acanthocytes (Spur) Rouleaux Hemoglobin C Crystals Schistocytes Malaria parasites Joe Bodies Hem Pathologist Commnt Sodium Potassium Chloride Carbon Dioxide Anion Gap BUN Creatinine Estimated GFR BUN/Creatinine Ratio Glucose POC Glucose 203 H Calcium Phosphorus Total Bilirubin AST ALT Alkaline Phosphatase Troponin T 0.075 H Total Protein Albumin Albumin/Globulin Ratio PTH Intact 105.7 H 05/23/17 05/23/17 07:16 08:49 WBC RBC Hgb Hct MCV MCH MCHC RDW Plt Count Add Manual Diff Total Counted Seg Neuts % (Manual) Band Neutrophils % Lymphocytes % (Manual) Reactive Lymphs % (Man) Monocytes % (Manual) Eosinophils % (Manual) Basophils % (Manual) Metamyelocytes % Myelocytes % Promyelocytes % Blast Cells % Nucleated RBC % Seg Neutrophils # Man Band Neutrophils # Lymphocytes # (Manual) Abs React Lymphs (Man) Monocytes # (Manual) Eosinophils # (Manual) Basophils # (Manual) Metamyelocytes # Myelocytes # Promyelocytes # Blast Cells # WBC Morphology Hypersegmented Neuts Hyposegmented Neuts Hypogranular Neuts Smudge Cells Toxic Granulation Toxic Vacuolation Dohle Bodies Pelger-Huet Anomaly Christopher Rods Platelet Estimate Clumped Platelets Plt Clumps, EDTA Large Platelets Giant Platelets Platelet Satelliting Plt Morphology Comment RBC Morphology Dimorphic RBCs Polychromasia Hypochromasia Poikilocytosis Anisocytosis Microcytosis Macrocytosis Spherocytes Pappenheimer Bodies Sickle Cells Target Cells Tear Drop Cells Ovalocytes Stomatocytes Helmet Cells [place] Bodies [place] Rings [place] Cells Bite Cells Crenated Cell Elliptocytes Acanthocytes (Spur) Rouleaux Hemoglobin C Crystals Schistocytes Malaria parasites Joe Bodies Hem Pathologist Commnt Sodium Potassium Chloride Carbon Dioxide Anion Gap BUN Creatinine Estimated GFR BUN/Creatinine Ratio Glucose POC Glucose 131 H Calcium Phosphorus Total Bilirubin AST ALT Alkaline Phosphatase Troponin T 0.064 H Total Protein Albumin Albumin/Globulin Ratio PTH Intact
[2017-05-23] MEDS: NORVIR PO SCH (12:07)
[2017-05-23] MEDS: REYATAZ PO SCH (12:07)
[2017-05-23] MEDS: PEPCID IV SCH (22:19)
[2017-05-24 04:30] LABS: Basophils % (Auto) 0.5 % (0.0-1.8); Eosinophils # (Auto) 0.1 K/mm3 (0.0-0.4); Eosinophils % (Auto) 1.4 % (0.0-4.3); Hematocrit 21.6 % (35.5-45.6); Hemoglobin 7.4 gm/dl (11.8-15.2); Lymphocytes # (Auto) 0.9 K/mm3 (1.2-5.4); Lymphocytes % (Auto) 14.5 % (13.4-35.0); Mean Corpuscular HGB Conc 34 % (32-34); Mean Corpuscular Hemoglobin 32 pg (28-32); Mean Corpuscular Volume 94 fl (84-94); Monocytes # (Auto) 0.9 K/mm3 (0.0-0.8); Monocytes % (Auto) 14.8 % (0.0-7.3); Platelet Count 259 K/mm3 (140-440); Red Blood Count 2.29 M/mm3 (3.65-5.03); Red Cell Distribution Width 14.4 % (13.2-15.2)
[2017-05-24 04:43] LABS: Albumin 2.6 g/dL (3.9-5); Bilirubin,Direct 0.3 mg/dL (0-0.2); Calcium 9.3 mg/dL (8.4-10.2)
[2017-05-24] MEDS: HumaLOG SUB-Q SCH ×3 (09:04→18:06)
[2017-05-24] MEDS: PROVENTIL IH SCH ×3 (09:13→19:47)
--- NOTE | 2017-05-24 09:26 | Progress Note ---
Subjective Principal diagnosis: Dysphagia Interval history: Patient was seen today for follow-up on multiple renal related issues Encephalopathy improving slowly stillnot at baseline which is kecia last i Know Still continues to have swallowing difficulty Status post barium swallow Vitals labs intake output medications were reviewed Social history: Reviewed Allergies: Reviewed Family history: Reviewed Physical examination HEENT: Oral mucosa moist no pallor or icterus Neck: Supple no JVD Chest: Clear to auscultation anteriorly CVS: Regular rate and rhythm S1 and S2 heard Abdomen: Soft nontender no suprapubic masses no organomegaly appreciable Extremity: Dry skin less than 1+ peripheral edema Musculoskeletal: No joint effusion noted in knees and ankle Neurological: Alert awake Dermatology: No petechial rashes Psychiatry: No evidence of any agitation and aggression noted Assessment and plan End-stage renal disease: Continue with hemodialysis 3 times per week ultrafiltration only as tolerated adjust the goal to keep him hemodynamically stable Also seen on HD as well later Hypertension: Blood pressure is 139/74 today, judicious ultrafiltration with hemodialysis to keep blood pressure above 100 by all means ultrafiltration goals could be adjusted Anemia in end-stage renal disease, current hemoglobin only 7.4: Please arrange for one unit of packed red blood cell transfusion, in the meantime he does require workup for anemia will order, erythropoietin weekly 40,000 for now Hypokalemia: Potassium 3.1 patient needs higher dialysis bath potassium and possibly oral replacement Status post barium swallow esophageal dysmotility, gastroenterology following, please therapy to follow Elevated bilirubin: Etiology unclear improving Diabetes mellitus type 2 long-standing Hyponatremia: To monitor and follow some decline noted Secondary hyperparathyroidism; parathyroid hormone 105 phosphorus 2.8 Encephalopathy slow improvement HIV disease follwed by primary team Noncompliant patient, history Medical decision making: Quite complex, than 35 minutes were spent in direct patient care today We'll continue to follow and make recommendation from renal standpoint Objective - Vital Signs Vital signs: Vital Signs - 12hr 05/23/17 05/23/17 05/23/17 21:33 21:45 23:53 Temperature 97.8 F Pulse Rate 81 Pulse Rate [ 83 87 Throughout] Respiratory 16 Rate Respiratory 16 16 Rate [ Throughout] Blood Pressure 94/51 O2 Sat by Pulse 92 Oximetry 05/24/17 07:36 Temperature 97.7 F Pulse Rate Pulse Rate [ Throughout] Respiratory 18 Rate Respiratory Rate [ Throughout] Blood Pressure 139/74 O2 Sat by Pulse Oximetry - Lab 05/24/17 04:00 05/24/17 13:40 Most recent lab results Calcium 9.3 mg/dL (8.4-10.2) 05/24/17 04:00 Phosphorus 2.80 mg/dL (2.5-4.5) 05/22/17 13:27 Magnesium 2.00 mg/dL (1.7-2.3) 05/18/17 04:00
[2017-05-24 12:38] LABS: % Iron Saturation 31.46 %
--- NOTE | 2017-05-24 13:02 | Discharge Summary ---
Providers - Providers Date of Admission: 05/10/17 20:19 Date of discharge: 05/24/17 Attending physician: ERIKA GONG 05/10/17 19:18 Consult to Physician [CONS] Urgent Consulting Provider: MARTELL DENISE Reason For Exam: esrd Notified:: awaiting call back 05/11/17 10:10 Consult to Physician [CONS] Routine Consulting Provider: CALOS NEVAREZ Reason For Exam: Altered level of conciousness/ h/o HIV Place consult to:: dr. nevarez Notified:: [id number] Phone number called:: [phone] Was contact made?: No Time called:: 10:46 Comment:: lft msg. 05/13/17 09:56 Consult to Physician [CONS] Routine Consulting Provider: ANGELICA NOVOA Reason For Exam: HIV/altered level conciousness Place consult to:: MOHAN Roque Notified:: MOHAN BARTON Phone number called:: [phone] Time called:: 11:58 05/13/17 14:16 Speech Therapy Evaluation and Treat [CONS] Routine Reason For Exam: pt coughs hard when taking po fluids 05/15/17 13:37 Consult to Dietitian/Nutrition [CONS] Routine Physician Instructions: Assess nutrtn needs, initiate, modify, manage TF Reason For Exam: Reason for Consult: Write/Manage Tube Feeding Reason for Consult: Write/Manage Tube Feeding 05/16/17 13:23 Physical Therapy Evaluation and Treat [CONS] Routine Comment: Reason For Exam: generalized weakness 05/16/17 13:24 Occupational Therapy Evaluate and Treat [CONS] Routine Comment: Reason For Exam: evaluate adl weakness 05/17/17 09:18 Speech Therapy Evaluation and Treat [CONS] Routine Reason For Exam: more awake/ evaluate swallowing 05/17/17 10:42 Consult to Physician [CONS] Routine Consulting Provider: CRISTIAN KHAN Reason For Exam: dysphagia Place consult to:: DR. Felix KHAN Notified:: DR. Felix KHAN Phone number called:: [phone] Was contact made?: Yes If yes, spoke with:: ANDRIA Time called:: 12:15 Comment:: MISTI NOTIFIED Primary care physician: [employer] Hospitalization Condition: Fair Hospital course: Brief history: Patient is a 57-year-old -[place] male who is currently on maintenance hemodialysis on Nocturnal shift Wednesday, Wednesday, Wednesday, who has been admitted here with altered mental status off unclear etiology. Discharge diagnosis and management: // Toxic metabolic encephalopathy; resolved patient is more alert and awake now Initial MRI; ?anoxic changes, MRA-negative, continue neuro checks Neurology and ID following // Dysphagia- Esophageal dysmotility s/p MBS which showed esophageal dysmotility Speech recommended to continue on clear liquid diet GI consulted and recommended barium swallow study s/p barium swallow study on 05/22 showed no obstruction advance diet as tolerated per GI cont PPI // hypotensive episodes usually happens after HD, resolved with IV fluid // Pancytopenia; - secondary to underlying HIV AIDS, closely monitor // Febrile illness ; likely from aspiration PNA, now afebrile //Aspiration pneumonia; treated with Zosyn. VQ scan negative for PE // HIV AIDS; management per ID, cont current meds //ESRD ; on hemodialysis per schedule, Nephrology following // psychosis ; pt likely had delirium, resolved, consulted psych. // h/O rectal cancer diagnosed recently, had one dose of chemo on 05/[address] Pablo office Patient stated he will cont to f/u as outpt // DVT prophylaxis; Lovenox Disposition; plan to d/c to SNF Radiological test: head CT, brain MRI, Abdominal xrys VQ scan, neck CT Modified barium swallow study barium study Hospitalist Physical exam: General appearance: Present: no acute distress, well-nourished, other ( alert today ) - EENT Eyes: Present: PERRL, EOM intact, NG on place - Neck Neck: Present: supple, normal ROM - Respiratory Respiratory effort: normal Respiratory: bilateral: diminished, negative: rales, rhonchi, wheezing - Cardiovascular Rhythm: regular Heart Sounds: Present: S1 & S2 - Extremities Extremities: no ischemia, No edema - Abdominal General gastrointestinal: soft, non-tender, non-distended, normal bowel sounds - Integumentary Integumentary: Present: clear, warm - Psychiatric Psychiatric: not agitated - Neurologic Neurologic: moves all extremities Disposition: DC/[place]-03 SNF [facility] Time spent for discharge: 35 minutes Core Measure Documentation - Palliative Care Palliative Care/ Comfort Measures: Not Applicable - Core Measures Any of the following diagnoses?: none Exam - Constitutional Vitals: Temp Pulse Resp BP Pulse Ox 97.7 F 81 18 139/74 92 05/24/17 07:36 05/23/17 23:53 05/24/17 07:36 05/24/17 07:36 05/23/17 23:53 Plan Activity: advance as tolerated Weight Bearing Status: Non-Weight Bearing Diet: renal Special Instructions: record daily weights Additional Instructions: F/u with Dr. Samy daley for rectal cancer. Follow up with: PRIMARY CARE, [Primary Care Provider] - 3-5 Days Prescriptions: oxyCODONE /ACETAMINOPHEN [Percocet 5/325 mg] 1 tab PO PRN PRN #20 tablet PRN Reason: Pain
[2017-05-24] MEDS ORDERED: NACL 0.9 (PRIMING MACHINE ONLY DIALYSIS) MC ONE (13:34)
[2017-05-24] MEDS: NORVIR PO SCH (15:55)
[2017-05-24] MEDS: REYATAZ PO SCH (15:55)
[2017-05-24] MEDS: VIREAD PO SCH (15:59)
[2017-05-24 16:18] VITALS: BP 113/44
[2017-05-24] MEDS ORDERED: PEPCID PO SCH (22:00)
== END 2017-05-24 22:40 | DRG 974 ==
LOC: ED 15:35 → 3A 20:19
PROVIDERS: ADMIT Internal Medicine; ATTEND Internal Medicine
PROC: 5A1D70Z Performance of Urinary Filtration, Intermittent, Less than 6 Hours Per Day (ICD-10-PCS; principal; 2017-05-11)
PROC: 5A1D70Z Performance of Urinary Filtration, Intermittent, Less than 6 Hours Per Day (ICD-10-PCS; 2017-05-13)
PROC: 5A1D70Z Performance of Urinary Filtration, Intermittent, Less than 6 Hours Per Day (ICD-10-PCS; 2017-05-15)
PROC: 0DH67UZ Insertion of Feeding Device into Stomach, Via Natural or Artificial Opening (ICD-10-PCS; 2017-05-16)
PROC: 5A1D70Z Performance of Urinary Filtration, Intermittent, Less than 6 Hours Per Day (ICD-10-PCS; 2017-05-17)
PROC: 5A1D70Z Performance of Urinary Filtration, Intermittent, Less than 6 Hours Per Day (ICD-10-PCS; 2017-05-19)
PROC: 5A1D70Z Performance of Urinary Filtration, Intermittent, Less than 6 Hours Per Day (ICD-10-PCS; 2017-05-21)
PROC: 5A1D70Z Performance of Urinary Filtration, Intermittent, Less than 6 Hours Per Day (ICD-10-PCS; 2017-05-24)
DX: B20 Human immunodeficiency virus [HIV] disease (principal); A41.9 Sepsis, unspecified organism; G92 Toxic encephalopathy; N18.6 End stage renal disease; J69.0 Pneumonitis due to inhalation of food and vomit; I12.0 Hypertensive chronic kidney disease with stage 5 chronic kidney disease or end stage renal disease; F29 Unspecified psychosis not due to a substance or known physiological condition; K22.4 Dyskinesia of esophagus; E83.51 Hypocalcemia; E11.22 Type 2 diabetes mellitus with diabetic chronic kidney disease; E66.9 Obesity, unspecified; K21.9 Gastro-esophageal reflux disease without esophagitis; D63.1 Anemia in chronic kidney disease; Z99.2 Dependence on renal dialysis; Z82.49 Family history of ischemic heart disease and other diseases of the circulatory system; Z88.2 Allergy status to sulfonamides; Z88.8 Allergy status to other drugs, medicaments and biological substances; Z79.899 Other long term (current) drug therapy; Z91.14 Patient's other noncompliance with medication regimen; Z68.26 Body mass index [BMI] 26.0-26.9, adult
CPT/HCPCS: 36415; 70450; 70547; 70551; 71045; 71046; 71250; 72125; 74018; 74220; 74230; 78582; 80048; 80053; 80061; 80074; 80307; 80320; 81001; 82140; 82271; 82550; 82607; 82728; 82747; 82962; 83550; 83735; 83970; 84100; 84154; 84484; 84520; 85007; 85025; 85027; 85045; 85379; 85610; 85730; 86403; 86592; 87040; 93005; 93010; 93306; 94640; 94668; 94760; 95819; 96374; A9540; A9558; G0480; G8978-GP; G8979-GP; G8987-GO; G8988-GO; G8996-GN; G8997-GN; G8998-GN; J0885; J1450; J1630; J1815; J2060; J2405; J2543; J2997; J3486; J7030; J7040; J7050

== ENCOUNTER 2017-12-04 06:19 | Emergency (ER) | payer MEDICARE ==
[2017-12-04 08:01] LABS: Hemoglobin 12.2 gm/dl (11.8-15.2); Mean Corpuscular HGB Conc 33 % (32-34); Mean Corpuscular Hemoglobin 33 pg (28-32); Mean Corpuscular Volume 98 fl (84-94); Platelet Count 132 K/mm3 (140-440); Red Blood Count 3.76 M/mm3 (3.65-5.03); Red Cell Distribution Width 15.8 % (13.2-15.2)
[2017-12-04 08:29] LABS: Albumin 3.8 g/dL (3.9-5); Calcium 9.4 mg/dL (8.4-10.2)
[2017-12-04 08:39] LABS: Basophils % (Manual) 0 % (0.0-1.8); Total Cells Counted 100
[2017-12-04 08:40] LABS: Platelet Estimate Consistent w Auto; RBC Morphology Normal
--- NOTE | 2017-12-04 10:33 | Emergency Department Report ---
ED Abdominal Pain HPI - General Chief Complaint: Urogenital-Male Stated Complaint: UNABLE TO URINATE Time Seen by Provider: 12/04/17 09:48 Source: patient Mode of arrival: Ambulatory Limitations: No Limitations - History of Present Illness Initial Comments: Patient is a 57-year-old male who has a past history of being HIV positive as well as a stage renal disease last dialysis was who is presenting with inability to urinate. Despite being on dialysis the patient still makes urine daily. Patient has sensation that he needs to go the bathroom but is unable to drain his bladder. Patient has. Discomfort is distances a full sensation with some burning. Patient also has some discomfort with bowel movements. Patient denies any nausea vomiting fevers chills diarrhea at this time. - Related Data Home Medications Medication Instructions Recorded Confirmed Last Taken Emtricitabine [Emtriva] 1 cap PO 2XW 10/23/13 06/01/17 05/07/17 Ondansetron HCl [Zofran] 1 tab PO Q8HR PRN 10/23/13 06/01/17 05/07/17 Sennosides [Senna Lax] 2 tab PO BID PRN 10/23/13 06/01/17 05/07/17 Sertraline [Zoloft] 1 tab PO BID 10/23/13 06/01/17 05/08/17 Tenofovir [Viread] 1 tab PO QWEEK 10/23/13 06/01/17 05/09/17 Atazanavir Sulfate [Reyataz] 300 mg PO DAILY 05/17/17 06/01/17 Unknown Ritonavir [Norvir] 100 mg PO QDAY 05/17/17 06/01/17 Unknown Previous Rx's Medication Instructions Recorded Last Taken Type Dextran 70/Hypromellose [Tears 15 ml OP QID #1 bottle 10/30/14 05/07/17 Rx Pure Drops] Famotidine [Pepcid] 20 mg PO QHS tablet 05/24/17 Unknown Rx Lispro Insulin [Humalog] 0 unit SUB-Q Q6HR units 05/24/17 Unknown Rx oxyCODONE /ACETAMINOPHEN [Percocet 1 tab PO PRN PRN #20 tablet 05/24/17 Unknown Rx 5/325 mg] Azithromycin [Zithromax TAB] 500 mg PO QDAY #5 tablet 06/04/17 Unknown Rx Ciprofloxacin HCl [Cipro] 500 mg PO BID #14 tablet 12/04/17 Unknown Rx HYDROcodone/APAP 5-325 [[place] 1 each PO Q4HR PRN #12 tablet 12/04/17 Unknown Rx 5/325] Phenazopyridine [Pyridium] 100 mg PO TID 2 Days tab 12/04/17 Unknown Rx Tamsulosin HCl [Flomax] 0.4 mg PO QHS #7 cap.er.24h 12/04/17 Unknown Rx Allergies Allergy/AdvReac Type Severity Reaction Status Date / Time sulfamethoxazole Allergy Rash Verified 09/28/14 09:02 [From Bactrim] trimethoprim [From Bactrim] Allergy Rash Verified 09/28/14 09:02 ED Review of Systems ROS: Stated complaint: UNABLE TO URINATE Other details as noted in HPI Comment: All other systems reviewed and negative ED Past Medical Hx - Past Medical History Hx Congestive Heart Failure: No Hx Diabetes: Yes Hx Deep Vein Thrombosis: Yes (BLOOD CLOT IN PORT IN 2013) Hx GERD: Yes Hx Renal Disease: Yes (dialysis , , wed) Hx Asthma: No Hx COPD: No Hx HIV: Yes - Surgical History Hx Coronary Stent: No Additional Surgical History: port in chest. SHUNT LEFT ARM - Social History Smoking Status: Former Smoker - Medications Home Medications: Home Medications Medication Instructions Recorded Confirmed Last Taken Type Emtricitabine [Emtriva] 1 cap PO 2XW 10/23/13 06/01/17 05/07/17 History Ondansetron HCl [Zofran] 1 tab PO Q8HR PRN 10/23/13 06/01/17 05/07/17 History Sennosides [Senna Lax] 2 tab PO BID PRN 10/23/13 06/01/17 05/07/17 History Sertraline [Zoloft] 1 tab PO BID 10/23/13 06/01/17 05/08/17 History Tenofovir [Viread] 1 tab PO QWEEK 10/23/13 06/01/17 05/09/17 History Dextran 70/Hypromellose [Tears 15 ml OP QID #1 bottle 10/30/14 06/01/17 Rx Pure Drops] Atazanavir Sulfate [Reyataz] 300 mg PO DAILY 05/17/17 06/01/17 Unknown History Ritonavir [Norvir] 100 mg PO QDAY 05/17/17 06/01/17 Unknown History Famotidine [Pepcid] 20 mg PO QHS tablet 05/24/17 06/01/17 Unknown Rx Lispro Insulin [Humalog] 0 unit SUB-Q Q6HR units 05/24/17 06/01/17 Unknown Rx oxyCODONE /ACETAMINOPHEN [Percocet 1 tab PO PRN PRN #20 tablet 05/24/17 Unknown Rx 5/325 mg] Azithromycin [Zithromax TAB] 500 mg PO QDAY #5 tablet 06/04/17 Unknown Rx Ciprofloxacin HCl [Cipro] 500 mg PO BID #14 tablet 12/04/17 Unknown Rx HYDROcodone/APAP 5-325 [[place] 1 each PO Q4HR PRN #12 tablet 12/04/17 Unknown Rx 5/325] Phenazopyridine [Pyridium] 100 mg PO TID 2 Days tab 12/04/17 Unknown Rx Tamsulosin HCl [Flomax] 0.4 mg PO QHS #7 cap.er.24h 12/04/17 Unknown Rx ED Physical Exam - General Limitations: No Limitations General appearance: alert, in no apparent distress - Head Head exam: Present: atraumatic, normocephalic - Eye Eye exam: Present: normal appearance - ENT ENT exam: Present: mucous membranes moist - Neck Neck exam: Present: normal inspection - Respiratory Respiratory exam: Present: normal lung sounds bilaterally. Absent: respiratory distress, wheezes, rales, rhonchi - Cardiovascular Cardiovascular Exam: Present: regular rate, normal rhythm. Absent: systolic murmur, diastolic murmur, rubs, gallop - GI/Abdominal GI/Abdominal exam: Present: soft, tenderness (patient has some suprapubic tenderness), normal bowel sounds. Absent: distended, guarding, rebound, rigid - Rectal Rectal exam: Present: deferred - Extremities Exam Extremities exam: Present: normal inspection - Back Exam Back exam: Present: normal inspection - Neurological Exam Neurological exam: Present: alert, oriented X3 - Psychiatric Psychiatric exam: Present: normal affect, normal mood - Skin Skin exam: Present: warm, dry, intact, normal color. Absent: rash ED Course Vital Signs 12/04/17 07:27 Temperature 97.9 F Pulse Rate 80 Blood Pressure 111/76 O2 Sat by Pulse 97 Oximetry ED Medical Decision Making - Lab Data Result diagrams: 12/04/17 07:45 12/04/17 07:46 - Medical Decision Making Patient was unable to urinate on his own. Patient's had a bladder scan done by me did show adequate amount of urine in the bladder. Patient had a Xavier attempt with a 14 Yoruba coud by nursing staff was unable to be inserted. I tried as well with a coud of the same size and was unsuccessful. The cystoscopy cart was obtained and I was able to pass a 22 Yoruba coud catheter into the bladder. Patient will be started on Cipro and Flomax and Pyridium. Patient will have follow-up with urology to have the Xavier removed in approximately 1 week. Critical care attestation.: If time is entered above; I have spent that time in minutes in the direct care of this critically ill patient, excluding procedure time. ED Disposition Clinical Impression: Urinary retention, Acute prostatitis Disposition: DC-01 TO HOME OR SELFCARE Is pt being admited?: No Does the pt Need Aspirin: No Condition: Stable Referrals: WILFRED GRIFFIN MD [Staff Physician] - 7-10 days Time of Disposition: 12:35
[2017-12-04] MEDS ORDERED: TORADOL IM ONE (11:14)
[2017-12-04 13:25] VITALS: BP 128/81
== END 2017-12-04 13:10 | disposition home or self-care (01) ==
LOC: ED 06:19
DX: R33.9 Retention of urine, unspecified (principal); N41.0 Acute prostatitis; E11.9 Type 2 diabetes mellitus without complications; K59.00 Constipation, unspecified; K21.9 Gastro-esophageal reflux disease without esophagitis; Z87.891 Personal history of nicotine dependence; Z79.899 Other long term (current) drug therapy; Z88.2 Allergy status to sulfonamides; Z86.718 Personal history of other venous thrombosis and embolism
CPT/HCPCS: 36415; 51702; 80053; 82962; 85007; 85025; 96372; 99283; J1885

== ENCOUNTER 2019-06-29 16:50 | Emergency (ER) | payer MEDICARE ==
--- NOTE | 2019-06-29 17:36 | Emergency Department Report ---
<BESS PATEL - Last Filed: 06/30/19 00:41> ED General Adult HPI - General Chief complaint: Weakness Stated complaint: WEAKNESS Time Seen by Provider: 06/29/19 17:10 PUI?: No Source: patient, EMS ( EMS documentation not available at time of chart dictation ), RN notes reviewed, old records reviewed Mode of arrival: Stretcher Limitations: Physical Limitation, Other (The patient is a rather poor historian) - History of Present Illness Initial comments: The patient is a 59-year-old gentleman. 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 He is on maintenance hemodialysis Wednesday, Wednesday, Wednesday. He also has a history of HIV, on antiviral therapy, history of delirium, history of rectal cancer, left lower quadrant colostomy Patient is brought to the hospital by emergency medical services. Patient states he was recently admitted to [facility] for a right-sided hip fracture. He states that he was in the hospital for 2 weeks. He states that he was discharged yesterday. He states that he lives at home by himself, and does not have anyone who can help him out at home. He states that he was brought home yesterday, and he stayed in bed all day yesterday and today. He was not able to get out of bed, and he therefore called emergency medical services. He has chronic pain, but denies new pain, and makes no complaint of headache, neck pain, chest pain, abdominal pain, shortness of breath. He endorses a "boil" on his sacrum and on his right testicle. This is chronic and has been there for quite some time. He is not at the time accompanied by friends or family for additional information or collateral information. He denies new cough, fever, and positive coronavirus exposure. He does not have his discharge paperwork with him. -: Gradual Quality: constant Improves with: rest Worsens with: movement Associated Symptoms: denies other symptoms - Related Data Home Medications Medication Instructions Recorded Confirmed Last Taken Emtricitabine [Emtriva] 1 cap PO 2XW 10/23/13 03/01/18 02/28/18 Tenofovir [Viread] 1 tab PO QWEEK 10/23/13 03/01/18 02/28/18 Atazanavir Sulfate [Reyataz] 300 mg PO DAILY 05/17/17 03/01/18 02/28/18 Ritonavir 100 mg PO QDAY 05/17/17 03/01/18 02/28/18 Ciprofloxacin HCl [Cipro] 500 mg PO BID 03/01/18 03/01/18 02/28/18 Finasteride [Proscar] 5 mg PO DAILY 03/01/18 03/01/18 02/28/18 Gabapentin [Neurontin] 300 mg PO DAILY 03/01/18 03/01/18 02/28/18 Pantoprazole [Protonix] 40 mg PO BID 06/29/19 06/29/19 06/29/19 Tamsulosin [Flomax] 0.4 mg PO QDAY 06/29/19 06/29/19 06/29/19 traMADoL [Ultram 50 MG tab] 50 mg PO PRN PRN 06/29/19 06/29/19 06/29/19 Allergies Allergy/AdvReac Type Severity Reaction Status Date / Time sulfamethoxazole Allergy Rash Verified 09/28/14 09:02 [From Bactrim] trimethoprim [From Bactrim] Allergy Rash Verified 09/28/14 09:02 ED Review of Systems Constitutional: malaise. denies: fever Eyes: denies: eye discharge ENT: denies: congestion Respiratory: cough. denies: wheezing Cardiovascular: denies: syncope Gastrointestinal: denies: abdominal pain Genitourinary: as per HPI, other Musculoskeletal: as per HPI Skin: rash Neurological: as per HPI, weakness Psychiatric: as per HPI Hematological/Lymphatic: as per HPI ED Past Medical Hx - Past Medical History Hx Hypertension: No Hx Congestive Heart Failure: No Hx Diabetes: Yes Hx Deep Vein Thrombosis: Yes (BLOOD CLOT IN PORT IN 2013) Hx GERD: Yes Hx Renal Disease: Yes (dialysis , , wed) Hx Asthma: No Hx COPD: No Hx HIV: Yes - Surgical History Hx Coronary Stent: No Additional Surgical History: port in chest. SHUNT LEFT ARM - Social History Smoking Status: Former Smoker - Medications Home Medications: Home Medications Medication Instructions Recorded Confirmed Last Taken Type Emtricitabine [Emtriva] 1 cap PO 2XW 10/23/13 03/01/18 02/28/18 History Tenofovir [Viread] 1 tab PO QWEEK 10/23/13 03/01/18 02/28/18 History Atazanavir Sulfate [Reyataz] 300 mg PO DAILY 05/17/17 03/01/18 02/28/18 History Ritonavir 100 mg PO QDAY 05/17/17 03/01/18 02/28/18 History Ciprofloxacin HCl [Cipro] 500 mg PO BID 03/01/18 03/01/18 02/28/18 History Finasteride [Proscar] 5 mg PO DAILY 03/01/18 03/01/18 02/28/18 History Gabapentin [Neurontin] 300 mg PO DAILY 03/01/18 03/01/18 02/28/18 History Pantoprazole [Protonix] 40 mg PO BID 06/29/19 06/29/19 06/29/19 History Tamsulosin [Flomax] 0.4 mg PO QDAY 06/29/19 06/29/19 06/29/19 History traMADoL [Ultram 50 MG tab] 50 mg PO PRN PRN 06/29/19 06/29/19 06/29/19 History ED Physical Exam - General Limitations: Physical Limitation General appearance: alert, in no apparent distress - Head Head exam: Present: atraumatic, normocephalic - Eye Eye exam: Present: normal appearance, EOMI, other (Visual acuity is intact to finger counting and color perception at a close distance). Absent: nystagmus - ENT ENT exam: Present: normal exam, normal orophraynx, mucous membranes moist, normal external ear exam - Neck Neck exam: Present: normal inspection, full ROM. Absent: tenderness, meningismus - Respiratory Respiratory exam: Present: normal lung sounds bilaterally. Absent: respiratory distress - Cardiovascular Cardiovascular Exam: Present: regular rate, normal rhythm, normal heart sounds. Absent: bradycardia, tachycardia, irregular rhythm, systolic murmur, diastolic murmur, rubs, gallop - GI/Abdominal GI/Abdominal exam: Present: soft, other (There is a left lower quadrant colostomy without redness, pus or streaking). Absent: distended, tenderness, guarding, rebound, rigid, pulsatile mass - Rectal Rectal exam: Present: deferred, other (2 cm of linear sacral breakdown noted, stage II, without redness, pus or streaking chaperoned by nurse Holly Cotter) - exam: Present: other (There is no testicular tenderness. There is a nontender elevated right-sided testicular lesion, without redness, pus or streaking chaperoned by nurse Cotter.). Absent: testicular tenderness, urethral discharge - Extremities Exam Extremities exam: Present: normal inspection (Left upper extremity fistula, without redness, pus or streaking), other (2+ pulses noted in the bilateral upper and lower extremities. There is no palpable cord. negative Homans sign. Muscular compartments are soft. The pelvis is stable.). Absent: calf tenderness - Back Exam Back exam: Present: normal inspection. Absent: tenderness, CVA tenderness (R), CVA tenderness (L), paraspinal tenderness, vertebral tenderness - Neurological Exam Neurological exam: Present: alert, other (There is no facial droop. The tongue is midline. Extraocular movements are intact bilaterally. There is 5 out of 5 strength in bilateral upper and lower extremities. Sensation is intact to light touch bilateral upper and lower extremities.) - Psychiatric Psychiatric exam: Present: flat affect - Skin Skin exam: Present: warm, other (There is a right proximal lateral hip surgical site noted, with dressing, without redness, pus, streaking or tenderness.) ED Course - Reevaluation(s) Reevaluation #1: 06/29/19 18:35 Differential diagnosis, including but not limited to: Deconditioning, failure to thrive, end-stage renal disease, electrolyte derangement, subacute hip fracture with poor mobility, and adequate case management/social work Assessment and plan: 59-year-old gentleman who states he was discharged yesterday from another hospital, with a right-sided hip fracture, sent home, patient reports that he is not able to care for himself or perform his activities of daily living. His physical exam is fairly unremarkable. He does not meet criteria for hospitalization or admission at this time. We do not suspect novel coronavirus on the patient at this time. Screening laboratory studies unremarkable. I have requested medical records from [place]. I have requested a case management consultation. We will continue the patient's old medications. At the moment, patient does not have a medical contraindication to outpatient discharge but he will need evaluation by case management to establish a safe social disposition, either to rehab, physical therapy, or to home with home health, etc. 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 Anemia is most likely anemia of chronic disease, secondary to end-stage renal disease, HIV, and history of cancer 06/29/19 18:39 Reevaluation #2: 06/29/19 19:27 Medical records from [place] are reviewed. Patient was admitted May 15, 2019 Patient was reported to currently be at [facility] after a lengthy hospitalization March 2019 and April 2019. He had slipped off his right side, and was found to have a nondisplaced fracture, transferred for orthopedic intervention. Discharge summaries from May and not June. At this point time, still awaiting case management evaluation. 06/30/19 00:41 Care will be transferred to the overnight physician, Dr. Josephine Tam, to transfer care to the morning physician, to follow-up on case management evaluation, and repeat basic metabolic panel. ED Medical Decision Making - Lab Data Result diagrams: 06/29/19 17:34 06/29/19 17:34 Vital Signs 06/29/19 17:45 Temperature 98.9 F Pulse Rate 90 Respiratory 20 Rate Blood Pressure 132/78 O2 Sat by Pulse 100 Oximetry Lab Results 06/29/19 06/29/19 06/29/19 Range/Units 17:34 17:34 17:34 WBC 6.5 (4.5-11.0) K/mm3 RBC 2.56 L (3.65-5.03) M/mm3 Hgb 8.0 L (11.8-15.2) gm/dl Hct 23.5 L (35.5-45.6) % MCV 92 (84-94) fl MCH 31 (28-32) pg MCHC 34 (32-34) % RDW 15.4 H (13.2-15.2) % Plt Count 230 (140-440) K/mm3 PT 13.4 (12.2-14.9) Sec. INR 1.01 (0.87-1.13) Sodium 136 L (137-145) mmol/L Potassium 3.6 (3.6-5.0) mmol/L Chloride 98.3 (98-107) mmol/L Carbon Dioxide 27 (22-30) mmol/L Anion Gap 14 mmol/L BUN 22 H (9-20) mg/dL Creatinine 4.5 H (0.8-1.5) mg/dL Estimated GFR 16 ml/min BUN/Creatinine Ratio 5 % Glucose 92 (75-100) mg/dL Calcium 9.3 (8.4-10.2) mg/dL Magnesium 2.30 (1.7-2.3) mg/dL Total Bilirubin 0.40 (0.1-1.2) mg/dL AST 17 (5-40) units/L ALT 8 (7-56) units/L Alkaline Phosphatase 85 (35-129) units/L Total Creatine Kinase 69 (55-170) units/L Total Protein 6.4 (6.3-8.2) g/dL Albumin 2.6 L (3.9-5) g/dL Albumin/Globulin Ratio 0.7 % Salicylates (2.8-20.0) mg/dL Acetaminophen (10.0-30.0) ug/mL 06/29/19 06/29/19 Range/Units 17:34 17:34 WBC (4.5-11.0) K/mm3 RBC (3.65-5.03) M/mm3 Hgb (11.8-15.2) gm/dl Hct (35.5-45.6) % MCV (84-94) fl MCH (28-32) pg MCHC (32-34) % RDW (13.2-15.2) % Plt Count (140-440) K/mm3 PT (12.2-14.9) Sec. INR (0.87-1.13) Sodium (137-145) mmol/L Potassium (3.6-5.0) mmol/L Chloride (98-107) mmol/L Carbon Dioxide (22-30) mmol/L Anion Gap mmol/L BUN (9-20) mg/dL Creatinine (0.8-1.5) mg/dL Estimated GFR ml/min BUN/Creatinine Ratio % Glucose (75-100) mg/dL Calcium (8.4-10.2) mg/dL Magnesium (1.7-2.3) mg/dL Total Bilirubin (0.1-1.2) mg/dL AST (5-40) units/L ALT (7-56) units/L Alkaline Phosphatase (35-129) units/L Total Creatine Kinase (55-170) units/L Total Protein (6.3-8.2) g/dL Albumin (3.9-5) g/dL Albumin/Globulin Ratio % Salicylates < 0.3 L (2.8-20.0) mg/dL Acetaminophen < 5.0 L (10.0-30.0) ug/mL - EKG Data -: EKG Interpreted by Or EKG shows normal: sinus rhythm Rate: normal - EKG Data 06/29/19 18:38 EKG is unchanged from prior. Sinus rhythm, 83 bpm, left axis deviation, low voltage in the inferior leads, left ventricular hypertrophy, QTC prolonged, unchanged from prior EKG from May 2017, not a STEMI. - Radiology Data Radiology results: pending, report reviewed, image reviewed X-ray of the chest is negative for acute disease, right lower lobe effusion is noted. Print Report Referring Physician: BESS PATEL Patient Name: ISATU BARNES Date of : 1960 Sex: Male Report Date: 2019-06-29 Report Status: [place] [address] XRay Report Signed Patient: ISATU BARNES MR#: [id number] : 1960 Acct:[id number] Age/Sex: 59 / M ADM Date: 06/29/19 Loc: ED Attending Dr: Ordering Physician: BESS PATEL MD Date of Service: 06/29/19 Procedure(s): XR hip 2-3V RT Accession Number(s): [id number] cc: BESS PATEL MD Fluoro Time In Minutes: RIGHT HIP 3 VIEW(S) INDICATION / CLINICAL INFORMATION: hx of right hip fracture COMPARISON: None available. FINDINGS: AP Pelvis, AP and frog-leg lateral views of the hip are reviewed. BONES / JOINT(S): No acute fracture or subluxation. No evidence of comp location related to right femoral neck hardware. Moderately advanced osteoarthrosis of the hips. Diffuse, subjective osseous demineralization. SOFT TISSUES: Extensive vascular wall calcification is noted. Signer Name: Rian Barrett MD Signed: 06/29/2019 7:49 PM Workstation Name: [id number] Transcribed By: BRANDON Dictated By: Rian Barrett MD Electronically Authenticated By: Rian Barrett MD Signed Date/Time: 06/29/191948 DD/ 46 Print Report Referring Physician: BESS PATEL Patient Name: ISATU BARNES Date of : 1960 Sex: Male Report Date: 2019-06-29 Report Status: Finalized Findings [facility] [address] [place] [address] XRay Report Signed Patient: ISATU BARNES MR#: [id number] : 1960 Acct:[id number] Age/Sex: 59 / M ADM Date: 06/29/19 Loc: ED Attending Dr: Ordering Physician: BESS PATEL MD Date of Service: 06/29/19 Procedure(s): XR chest 1V ap Accession Number(s): [id number] cc: BESS PATEL MD Fluoro Time In Minutes: CHEST 1 VIEW 06/29/2019 5:15 PM INDICATION / CLINICAL INFORMATION: weakness esrd. COMPARISON: Chest x-ray on 05/31/2017. FINDINGS: SUPPORT DEVICES: None. HEART / MEDIASTINUM: No significant abnormality. LUNGS / PLEURA: There is a small right pleural effusion. Lungs otherwise appear clear. No pneumothorax. ADDITIONAL FINDINGS: No significant additional findings. IMPRESSION: 1. Small right pleural effusion without additional acute abnormality. Signer Name: Gary Hartley MD Signed: 06/29/2019 5:33 PM Workstation Name: [id number] Transcribed By: RODRIGO Dictated By: Gary Hartley MD Electronically Authenticated By: Gary Hartley MD Signed Date/Time: 06/29/191732 DD/ 32 TD/TT: ED Disposition Condition: Stable Referrals: PRIMARY CAREMD [Primary Care Provider] - 3-5 Days <YULIANA TAM III - Last Filed: 06/30/19 05:51> ED Review of Systems ROS: Stated complaint: WEAKNESS Other details as noted in HPI ED Course Vital Signs 06/29/19 06/29/19 06/29/19 17:45 20:24 23:01 Temperature 98.9 F Pulse Rate 90 84 89 Respiratory 20 17 17 Rate Blood Pressure 132/78 Blood Pressure 134/71 120/53 [Right] O2 Sat by Pulse 100 96 100 Oximetry 06/29/19 06/30/19 06/30/19 23:30 00:31 01:01 Temperature Pulse Rate 89 83 87 Respiratory 15 22 21 Rate Blood Pressure 140/68 123/52 137/70 Blood Pressure [Right] O2 Sat by Pulse 100 100 100 Oximetry 06/30/19 06/30/19 06/30/19 01:31 02:01 02:31 Temperature Pulse Rate 88 90 93 H Respiratory 20 19 16 Rate Blood Pressure 138/68 132/66 132/77 Blood Pressure [Right] O2 Sat by Pulse 100 100 100 Oximetry 06/30/19 03:01 Temperature Pulse Rate 89 Respiratory 20 Rate Blood Pressure 133/68 Blood Pressure [Right] O2 Sat by Pulse 100 Oximetry - Reevaluation(s) Reevaluation #3: Patient signed out to oncoming physician, Dr. Peters. Patient has a pending basic metabolic panel and a pending case management consult. 06/30/19 05:56 ED Medical Decision Making - Lab Data Result diagrams: 06/29/19 17:34 06/29/19 17:34 Critical care attestation.: If time is entered above; I have spent that time in minutes in the direct care of this critically ill patient, excluding procedure time.
[2019-06-29 17:51] LABS: Hematocrit 23.5 % (35.5-45.6); Mean Corpuscular HGB Conc 34 % (32-34); Mean Corpuscular Volume 92 fl (84-94); Platelet Count 230 K/mm3 (140-440); Red Blood Count 2.56 M/mm3 (3.65-5.03); Red Cell Distribution Width 15.4 % (13.2-15.2)
[2019-06-29 18:03] LABS: INR 1.01 (0.87-1.13)
[2019-06-29 18:08] LABS: Albumin 2.6 g/dL (3.9-5); Calcium 9.3 mg/dL (8.4-10.2)
[2019-06-29] MEDS ORDERED: traMADol 50 MG TAB PO PRN (18:21)
[2019-06-29] MEDS ORDERED: EMTRICITABINE 200 MG CAP PO SCH (18:30)
--- NOTE | 2019-06-29 19:53 | XRay Report ---
RIGHT HIP 3 VIEW(S) INDICATION / CLINICAL INFORMATION: hx of right hip fracture COMPARISON: None available. FINDINGS: AP Pelvis, AP and frog-leg lateral views of the hip are reviewed. BONES / JOINT(S): No acute fracture or subluxation. No evidence of comp location related to right fem oral neck hardware. Moderately advanced osteoarthrosis of the hips. Diffuse, subjective osseous demin eralization. SOFT TISSUES: Extensive vascular wall calcification is noted. Signer Name: Rian Barrett MD Signed: 06/29/2019 7:49 PM Workstation Name: [id number]
[2019-06-29] MEDS: PANTOPRAZOLE 40 MG TAB PO SCH (23:51)
[2019-06-30 06:25] LABS: Calcium 9.4 mg/dL (8.4-10.2)
[2019-06-30] MEDS ORDERED: traMADol 50 MG TAB PO PRN (09:04)
[2019-06-30] MEDS ORDERED: FINASTERIDE 5 MG TAB PO SCH (10:00)
[2019-06-30] MEDS ORDERED: ATAZANAVIR SULFATE 300 MG PO SCH (10:00)
[2019-06-30] MEDS ORDERED: RITONAVIR 100 MG TAB PO SCH (10:00)
[2019-06-30] MEDS ORDERED: TAMSULOSIN 0.4 MG CAP PO SCH (10:00)
[2019-06-30] MEDS: PANTOPRAZOLE 40 MG TAB PO SCH (10:01)
[2019-06-30 15:40] VITALS: BP 112/67
[2019-07-06] MEDS ORDERED: TENOFOVIR 300 MG TAB PO SCH (10:00)
== END 2019-06-30 16:32 | disposition home or self-care (01) ==
LOC: ED 16:50
DX: R53.1 Weakness (principal); M25.552 Pain in left hip
CPT/HCPCS: 36415; 71045; 80048; 80053; 80320; 82550; 83735; 85027; 85610; 93005; 93010; G0480